=== PATIENT | female | born 1940 | race Caucasian/White ===

== ENCOUNTER 2017-01-11 14:17 | Inpatient (IN) | payer MEDICARE ==
[~2017-01-11] VITALS: Ht 165.1 cm; Wt 69.6 kg
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
--- NOTE | 2017-01-11 14:33 | EKG ---
[address] [address] Test Date: 2017-01-11 Test Time: 14:24:34 Pat Name: MERRY HERNANDEZ Department: Room: Gender: F Atmospheric Technician: JESSICA : 1940 Requested By: OSBALDO MARTINS Order Number: [id number] Reading MD: Abner Carrasco MD Measurements Intervals [place] Rate: 59 P: 46 IL: 210 QRS: 5 QRSD: 68 T: 57 QT: 402 QTc: 402 Interpretive Statements SINUS RHYTHM Electronically Signed On 01-16-2017 10:33:42 [employer] by Abner Carrasco MD
[2017-01-11 14:54] LABS: BASO # 0.1 x10^3/uL (0.0-0.2); BASO % 1 % (0-3); EOS # 0.1 x10^3/uL (0.0-0.7); EOS % 1 % (0-3); HEMATOCRIT 39.7 % (36.0-47.0); HEMOGLOBIN 13.5 g/dL (12.0-15.5); LYMPH # 1.5 x10^3/uL (1.0-4.8); LYMPH % 20 % (24-48); MEAN CORPUSCULAR HEMOGLOBIN 32 pg (25-35); MEAN CORPUSCULAR HGB CONC 34 g/dL (31-37); MEAN CORPUSCULAR VOLUME 95 fL (79-100); MONO # 0.4 x10^3/uL (0.0-1.1); MONO % 5 % (0-9); NEUT # 5.6 x10^3uL (1.8-7.7); NEUT % 74 % (31-73); PLATELET COUNT 312 x10^3/uL (140-400); RED BLOOD COUNT 4.18 x10^6/uL (3.50-5.40); RED CELL DISTRIBUTION WIDTH 12.3 % (11.5-14.5); WHITE BLOOD COUNT 7.7 x10^3/uL (4.0-11.0)
--- NOTE | 2017-01-11 15:01 | RAD ---
EXAM: CT head without contrast. HISTORY: Altered mental status. TECHNIQUE: Computed tomography of the head was performed without intravenous contrast. COMPARISON: None. FINDINGS: There is no intracranial hemorrhage. Hypoattenuation within the periventricular white matter indicates moderate to severe chronic small vessel ischemic change. Prominence of the lateral ventricles and hemispheric sulci indicate moderate atrophy. The visualized paranasal sinuses appear clear. There appear to be bilateral ocular lens dislocations. The temporal bones are unremarkable. The calvarium reveals no suspicious lesions. IMPRESSION: 1. Correlate for bilateral ocular lens dislocations. 2. Moderate atrophy and chronic small vessel ischemic white matter change. No acute intracranial findings. *One or more of the following individualized dose reduction techniques were utilized for this examination: 1. Automated exposure control. 2. Adjustment of the mA and/or kV according to patient size. 3. Use of iterative reconstruction technique.
[2017-01-11 15:08] LABS: ALBUMIN/GLOBULIN RATIO 1.2 (1.0-1.7); CALCIUM 8.9 mg/dL (8.5-10.1); CREATININE 1.5 mg/dL (0.6-1.0); ETHANOL < 10 mg/dL (0-10); GFR 33.6; MAGNESIUM 2.2 mg/dL (1.8-2.4); POTASSIUM 4.1 mmol/L (3.5-5.1); SALIC 0.2 mg/dL (2.8-20.0); TOTAL BILIRUBIN 0.6 mg/dL (0.2-1.0); TOTAL PROTEIN 7.4 g/dL (6.4-8.2)
[2017-01-11 15:09] LABS: ACETAMIN < 2.0 mcg/mL (10-30)
[2017-01-11 15:18] LABS: BACTERIA,URINE FEW /HPF (0-FEW); BILIRUBIN,URINE NEG (NEG); CLARITY,URINE CLEAR; COLOR,URINE YELLOW; GLUCOSE,URINE NEG (NEG); NITRITE,URINE NEG (NEG); RBC,URINE 0 /HPF (0-2); SQUAMOUS EPITHELIAL CELL,UR OCC /LPF; UROBILINOGEN,URINE 0.2 mg/dL (0.2 mg/dL); WBC,URINE OCC /HPF (0-4)
[2017-01-11 15:22] LABS: BARBITURATES NEG (NEG); BENZODIAZEPINES NEG (NEG); CANNABINOIDS NEG (NEG); COCAINE NEG (NEG); METHADONE NEG (NEG); OPIATES NEG (NEG); PHENCYCLIDINE NEG (NEG)
[2017-01-11 15:23] LABS: AMPHETAMINE/METHAMPHETAMINE NEG (NEG)
[2017-01-11 17:38] VITALS: BP 164/86
[2017-01-11] MEDS ORDERED: ACETAMINOPHEN 325 MG TABLET PO PRN (18:00)
[2017-01-11] MEDS ORDERED: MAG HYDROX/AL HYDROX/SIMETH 30 ML ORAL.SUSP PO PRN (18:00)
[2017-01-11] MEDS ORDERED: ACET500T68 PO (18:11)
[2017-01-11] MEDS ORDERED: POLY15DR28 OU (18:11)
[2017-01-11] MEDS ORDERED: DONE10TA7 PO (18:11)
[2017-01-11] MEDS ORDERED: FEXO180T16 PO (18:11)
[2017-01-11] MEDS ORDERED: ESCITALOPRAM OX20 MG PO (18:11)
[2017-01-11] MEDS ORDERED: LISI-338 PO (18:11)
[2017-01-11] MEDS ORDERED: VIT1CAPS12 PO (18:11)
[2017-01-11] MEDS: ACETAMINOPHEN 500 MG TABLET PO SCH (19:39)
[2017-01-11] MEDS: DONEPEZIL HCL 10 MG TABLET PO SCH (19:39)
[2017-01-11] MEDS: POLYVINYL ALCOHOL 1.4% OPHTH SOLUTION 15ML BOTTLE. OU SCH (20:58)
[2017-01-11] MEDS ORDERED: LISINOPRIL 5 MG TABLET. PO SCH (21:00)
--- NOTE | 2017-01-11 21:44 | PDOC ---
Exam Javier Demential Exam: Javier Note: Please also refer to the separate dictated note~for this date of service dictated separately.~Patient seen individually. Discussed the patient with Nursing staff reviewed the chart.~Reviewed interim history and current functioning. Reviewed vital signs,~Labs/ Radiology~and current medications noted below. Continue current treatment with the changes noted in the dictated addendum note Assessment: Vital Signs: Vital Signs Date Time Temp Pulse Resp B/P (MAP) Pulse Ox O2 Delivery O2 Flow Rate FiO2 01/11/17 19:39 64 164/86 01/11/17 17:38 97.4 20 99 01/11/17 14:53 Room Air I&O Intake and Output 01/12/17 07:00 Intake Total 60 ml Balance 60 ml Intake Oral 60 ml Labs: Laboratory Tests Test 01/11/17 14:34 01/11/17 14:50 White Blood Count 7.7 x10^3/uL (4.0-11.0) Red Blood Count 4.18 x10^6/uL (3.50-5.40) Hemoglobin 13.5 g/dL (12.0-15.5) Hematocrit 39.7 % (36.0-47.0) Mean Corpuscular Volume 95 fL (79-100) Mean Corpuscular Hemoglobin 32 pg (25-35) Mean Corpuscular Hemoglobin Concent 34 g/dL (31-37) Red Cell Distribution Width 12.3 % (11.5-14.5) Platelet Count 312 x10^3/uL (140-400) Neutrophils (%) (Auto) 74 % (31-73) H Lymphocytes (%) (Auto) 20 % (24-48) L Monocytes (%) (Auto) 5 % (0-9) Eosinophils (%) (Auto) 1 % (0-3) Basophils (%) (Auto) 1 % (0-3) Neutrophils # (Auto) 5.6 x10^3uL (1.8-7.7) Lymphocytes # (Auto) 1.5 x10^3/uL (1.0-4.8) Monocytes # (Auto) 0.4 x10^3/uL (0.0-1.1) Eosinophils # (Auto) 0.1 x10^3/uL (0.0-0.7) Basophils # (Auto) 0.1 x10^3/uL (0.0-0.2) Sodium Level 140 mmol/L (136-145) Potassium Level 4.1 mmol/L (3.5-5.1) Chloride Level 104 mmol/L (98-107) Carbon Dioxide Level 28 mmol/L (21-32) Anion Gap 8 (6-14) Blood Urea Nitrogen 27 mg/dL (7-20) H Creatinine 1.5 mg/dL (0.6-1.0) H Estimated GFR (Cockcroft-Gault) 33.6 BUN/Creatinine Ratio 18 (6-20) Glucose Level 98 mg/dL (70-99) Calcium Level 8.9 mg/dL (8.5-10.1) Magnesium Level 2.2 mg/dL (1.8-2.4) Total Bilirubin 0.6 mg/dL (0.2-1.0) Aspartate Amino Transferase (AST) 13 U/L (15-37) L Alanine Aminotransferase (ALT) 21 U/L (14-59) Alkaline Phosphatase 75 U/L (46-116) Creatine Kinase 59 U/L (26-192) Troponin I Quantitative < 0.017 ng/mL (0-0.055) Total Protein 7.4 g/dL (6.4-8.2) Albumin 4.0 g/dL (3.4-5.0) Albumin/Globulin Ratio 1.2 (1.0-1.7) Salicylates Level 0.2 mg/dL (2.8-20.0) L Salicylate Last Dose Date 01/11/17 Salicylate Last Dose Time 0000 Acetaminophen Level < 2.0 mcg/mL (10-30) L Acetaminophen Last Dose Date 01/11/17 Acetaminophen Last Dose Time 0000 Ethyl Alcohol Level < 10 mg/dL (0-10) Urine Collection Type Unknown Urine Color Yellow Urine Clarity Clear Urine pH 5.5 Urine Specific [place] 1.015 Urine Protein Neg (NEG-TRACE) Urine Glucose (UA) Neg mg/dL (NEG) Urine Ketones (Stick) Neg mg/dL (NEG) Urine Blood Neg (NEG) Urine Nitrite Neg (NEG) Urine Bilirubin Neg (NEG) Urine Urobilinogen Dipstick 0.2 mg/dL (0.2 mg/dL) Urine Leukocyte Esterase Neg (NEG) Urine RBC 0 /HPF (0-2) Urine WBC Occ /HPF (0-4) Urine Squamous Epithelial Cells Occ /LPF Urine Bacteria Few /HPF (0-FEW) Urine Opiates Screen Neg (NEG) Urine Methadone Screen Neg (NEG) Urine Barbiturates Neg (NEG) Urine Phencyclidine Screen Neg (NEG) Urine Amphetamine/Methamphetamine Neg (NEG) Urine Benzodiazepines Screen Neg (NEG) Urine Cocaine Screen Neg (NEG) Urine Cannabinoids Screen Neg (NEG) Urine Ethyl Alcohol Neg (NEG) Current Medications: Meds: Current Medications Acetaminophen (Tylenol) 650 mg PRN Q6HRS PRN PO PAIN / TEMP; Start 01/11/17 at 18:00 Al Hydroxide/Mg Hydroxide (Mylanta Plus Xs) 15 ml PRN AFTMEALHC PRN PO DYSPEPSIA; Start 01/11/17 at 18:00 Magnesium Hydroxide (Milk Of Magnesia) 2,400 mg PRN QHS PRN PO CONSTIPATION; Start 01/11/17 at 18:00 Donepezil HCl (Aricept) 10 mg QHS PO Last administered on 01/11/17 19:39; Start 01/11/17 at 21:00 Citalopram Hydrobromide (CeleXA) 40 mg DAILY PO ; Start 01/12/17 at 09:00 Acetaminophen (Tylenol) 1,000 mg BID PO Last administered on 01/11/17 19:39; Start 01/11/17 at 21:00 Lisinopril (Prinivil) 5 mg QHS PO Last administered on 01/11/17 19:39; Start 01/11/17 at 21:00 Artificial Tears (Artificial Tears) 1 drop BID OU ; Start 01/11/17 at 21:00 Cetirizine HCl (ZyrTEC) 10 mg DAILY PO ; Start 01/12/17 at 09:00 Multivitamins/ Minerals (I-Robyn) 1 tab DAILY PO ; Start 01/12/17 at 09:00 Active Scripts Active Reported Preservision Areds Softgel (Vit A/Vit C/Vit E/Zinc/Copper) 1 Each Capsule 1 Each PO DAILY Fexofenadine Hcl 180 Mg Tablet 180 Mg PO DAILY Acetaminophen 500 Mg Tablet 1,000 Mg PO BID Lisinopril 5 Mg Tablet 5 Mg PO QHS Liquitears (Polyvinyl Alcohol) 15 Ml Drops 1 Drop OP BID Escitalopram Oxalate 20 Mg Tablet 20 Mg PO DAILY Donepezil Hcl 10 Mg Tablet 10 Mg PO QHS ALIYAH RAMÍREZ MD Jan 11, 2017 21:44
[2017-01-12 06:42] VITALS: BP 145/80
[2017-01-12] MEDS: ACETAMINOPHEN 500 MG TABLET PO SCH ×2 (07:58→19:58)
[2017-01-12] MEDS: MULTIVITAMIN I-VITE TABLET. PO SCH (07:58)
[2017-01-12] MEDS: CETIRIZINE HCL 10 MG TABLET PO SCH (07:58)
[2017-01-12] MEDS ORDERED: CITALOPRAM 20 MG TABLET. PO SCH (09:00)
[2017-01-12] MEDS: POLYVINYL ALCOHOL 1.4% OPHTH SOLUTION 15ML BOTTLE. OU SCH ×2 (09:33→19:59)
[2017-01-12 15:31] VITALS: BP 146/86
[2017-01-12 17:10] LABS: THYROXINE 5.6 ug/dL (4.5-12.0)
--- NOTE | 2017-01-12 18:16 | HP ---
ADMIT DATE: 01/11/2017 This is a late entry for 01/11/2017 and covers the elements not covered in my initial note 01/11/2017. HISTORY OF PRESNET ILLNESS: I met with the patient in the evening of 01/11/2017. Discussed with nursing staff several times. Prior to the patient's admission and since her admission reviewed current and past records. IDENTIFYING DATA: The patient is a 76-year-old male referred from [place], [place] by Dr. Henriquez, her primary care physician, on account of increasing crying spells, getting angry, increasingly forgetful, suicidal ideation without a plan. The patient is being increasingly depressed and had failed outpatient psychiatric interventions, was more confused, referred for inpatient psychiatric stabilization since behaviors symptoms posing a danger for hurting self. CHIEF COMPLAINT: "I have been here a long time." The patient was admitted earlier on 01/11/2017. HISTORY OF PRESENT ILLNESS: The patient has a history of progressive memory deficits, worsening symptoms of depression. She has been helpless, hopeless, worthless, having crying spells, some sleep and appetite changes. No clear homicidal ideation. She has had suicidal ideation without a plan. No clear history of bipolar disorder. PAST PSYCHIATRIC HISTORY: As above. MEDICAL HISTORY: Hypertension, hyperlipidemia, iron deficiency, anemia, vitamin D deficiency, renal insufficiency. ACCU-CHEKS: None. CODE STATUS: DNR. ALLERGIES: SULFA, NONSTEROIDAL ANTI-INFLAMMATORY MEDICATIONS. Ambulates independently. DIET: Regular. CURRENT PSYCHOTROPICS: Aricept 10 mg a day, Lexapro 20 mg a day. FAMILY HISTORY: Noncontributory. SOCIAL HISTORY: No history of alcohol, drug abuse, physical, sexual or elder abuse. She is not known to be a perpetrator. REACTION TO HOSPITALIZATION: The patient oblivious of this. ASSETS: The patient has stable living at the above facility and a supportive family. MENTAL STATUS EXAMINATION: The patient was seen individually evening of 01/11/2017. She is anxious, restless, depressed. Denies active suicidal ideation. Memory is impaired, unable to tell me the date. Speech coherent. Association somewhat loose. Abstraction fair, computation impaired, language function intact. Mood and affect depressed. LABORATORY DATA: Reviewed. IMPRESSION: Major depressive disorder, recurrent with suicidal ideation; major neurocognitive disorder, early Alzheimer, vascular with depression; anxiety disorder, unspecified; impulse control disorder, unspecified. Rest of diagnoses as above. PLAN: Admit to the geropsychiatry unit at [facility]. I will see the patient daily individually from a psychiatric standpoint. Medical followup per Dr. Bobby/Dr. Peterson. Continue the patient on her current psychotropics. Add Remeron 7.5 mg p.o. at bedtime to help with her insomnia. Augment the antidepressant. Consider changing Lexapro to an alternate antidepressant. Will make further adjustments as clinically indicated post baseline assessment. MAN Geni RAMÍREZ MD DR: ARIANA/chandana JOB#: [id number] / [id number]
[2017-01-12] MEDS: CYANOCOBALAMIN (VITAMIN B-12) 1,000 MCG/ML VIAL IM SCH (18:29)
[2017-01-12] MEDS: DONEPEZIL HCL 10 MG TABLET PO SCH (19:58)
[2017-01-12] MEDS: MIRTAZAPINE 7.5 MG TABLET. PO SCH (19:59)
[2017-01-13 01:07] LABS: HEMOGLOBIN A1C 5.1 % (4.8-5.6)
[2017-01-13 06:11] VITALS: BP 170/86
[2017-01-13] MEDS: ACETAMINOPHEN 500 MG TABLET PO SCH ×2 (09:06→21:04)
[2017-01-13] MEDS: CETIRIZINE HCL 10 MG TABLET PO SCH (09:06)
[2017-01-13] MEDS: MULTIVITAMIN I-VITE TABLET. PO SCH (09:07)
[2017-01-13] MEDS: POLYVINYL ALCOHOL 1.4% OPHTH SOLUTION 15ML BOTTLE. OU SCH ×2 (09:09→21:04)
[2017-01-13] MEDS: SERTRALINE 50 MG TABLET. PO SCH (09:09)
[2017-01-13] MEDS: amLODIPine BESYLATE 5 MG TABLET PO SCH (09:09)
[2017-01-13 16:36] VITALS: BP 130/84
[2017-01-13] MEDS ORDERED: CHOLECALCIFEROL (VITAMIN D3) 50,000 UNIT CAPSULE PO SCH (18:00)
--- NOTE | 2017-01-13 20:09 | PDOC ---
Exam Note: Javier Note: Please also refer to the separate dictated note~for this date of service dictated separately.~Patient seen individually. Discussed the patient with Nursing staff reviewed the chart.~Reviewed interim history and current functioning. Reviewed vital signs,~Labs/ Radiology~and current medications noted below. Continue current treatment with the changes noted in the dictated addendum note Assessment: Vital Signs: Vital Signs Date Time Temp Pulse Resp B/P (MAP) Pulse Ox O2 Delivery O2 Flow Rate FiO2 01/13/17 16:36 97.8 88 16 130/84 (99) 96 01/11/17 14:53 Room Air I&O Intake and Output 01/14/17 07:00 Intake Total 240 ml Balance 240 ml Intake Oral 240 ml Current Medications: Meds: Current Medications Acetaminophen (Tylenol) 650 mg PRN Q6HRS PRN PO PAIN / TEMP; Start 01/11/17 at 18:00 Al Hydroxide/Mg Hydroxide (Mylanta Plus Xs) 15 ml PRN AFTMEALHC PRN PO DYSPEPSIA; Start 01/11/17 at 18:00 Magnesium Hydroxide (Milk Of Magnesia) 2,400 mg PRN QHS PRN PO CONSTIPATION; Start 01/11/17 at 18:00 Donepezil HCl (Aricept) 10 mg QHS PO Last administered on 01/12/17 19:58; Start 01/11/17 at 21:00 Citalopram Hydrobromide (CeleXA) 40 mg DAILY PO Last administered on 01/12/17 07:58; Start 01/12/17 at 09:00; Stop 01/12/17 at 11:45; Status DC Acetaminophen (Tylenol) 1,000 mg BID PO Last administered on 01/13/17 09:06; Start 01/11/17 at 21:00 Lisinopril (Prinivil) 5 mg QHS PO Last administered on 01/11/17 19:39; Start 01/11/17 at 21:00; Stop 01/12/17 at 17:09; Status DC Artificial Tears (Artificial Tears) 1 drop BID OU Last administered on 09:09; Start 01/11/17 at 21:00 Cetirizine HCl (ZyrTEC) 10 mg DAILY PO Last administered on 01/13/17 09:06; Start 01/12/17 at 09:00 Multivitamins/ Minerals (I-Robyn) 1 tab DAILY PO Last administered on 09:07; Start 01/12/17 at 09:00 Sertraline HCl (Zoloft) 50 mg DAILY PO Last administered on 01/13/17 09:09; Start 01/13/17 at 09:00 Mirtazapine (Remeron) 7.5 mg QHS PO Last administered on 01/12/17 19:59; Start 01/12/17 at 21:00 Cyanocobalamin (Vitamin B-12) 1,000 mcg WEEKLY IM Last administered on 18:29; Start 01/12/17 at 18:00 Amlodipine Besylate (Norvasc) 5 mg DAILY PO Last administered on 01/13/17 09: 09; Start 01/13/17 at 09:00 Olanzapine (ZyPREXA ZYDIS) 1.25 mg PRN Q2HR PRN PO PSYCHOSIS Last administered on 01/13/17 16:20; Start 01/13/17 at 17:00 Vitamin D (Vitamin D3) 50,000 unit WEEKLY PO ; Start 01/13/17 at 18:00; Stop 01/13/17 at 18:15; Status DC Vitamin D (Vitamin D3) 50,000 unit WEEKLY PO ; Start 01/14/17 at 09:00 Quetiapine Fumarate (SEROquel) 25 mg QHS PO ; Start 01/13/17 at 21:00 Benztropine Mesylate (Cogentin) 0.5 mg BID PO ; Start 01/13/17 at 21:00 Active Scripts Active Reported Preservision Areds Softgel (Vit A/Vit C/Vit E/Zinc/Copper) 1 Each Capsule 1 Each PO DAILY Fexofenadine Hcl 180 Mg Tablet 180 Mg PO DAILY Acetaminophen 500 Mg Tablet 1,000 Mg PO BID Lisinopril 5 Mg Tablet 5 Mg PO QHS Liquitears (Polyvinyl Alcohol) 15 Ml Drops 1 Drop OP BID Escitalopram Oxalate 20 Mg Tablet 20 Mg PO DAILY Donepezil Hcl 10 Mg Tablet 10 Mg PO QHS I have reviewed the current psychotropics carefully including drug interactions. Risk benefit ratio favors no change other than as noted in my dictated progress note. Diagnosis: Problems: (1) Anxiety disorder (2) Dementia, vascular, with delusions (3) Dementia, vascular, with depression (4) Major depressive disorder, recurrent episode (5) Impulse control disorder ALIYAH RAMÍREZ MD Jan 13, 2017 20:09
[2017-01-13] MEDS: MIRTAZAPINE 7.5 MG TABLET. PO SCH (21:04)
[2017-01-13] MEDS: DONEPEZIL HCL 10 MG TABLET PO SCH (21:04)
[2017-01-13] MEDS: QUEtiapine 25 MG TABLET. PO SCH (21:08)
[2017-01-13] MEDS: MAGNESIUM HYDROXIDE 2,400 MG/30 ML ORAL.SUSP. PO PRN (21:08)
[2017-01-13] MEDS: BENZTROPINE MESYLATE 0.5 MG TABLET PO SCH (21:08)
--- NOTE | 2017-01-14 04:37 | PN ---
DATE: 01/12/2017 This is a late entry, covers elements not covered in my initial note of 01/12/2017. Met with the patient in the evening of 01/12/2017. Discussed with the entire treatment team in the morning of 01/12/2017. The patient remains confused, otherwise calm. Seems to have some expressive aphasia and tremors. We will consult Dr. Saavedra for a Neurology consult. B12 is low and we will supplement this. Reviewed the patient's history, diagnosis, discharge plans, current psychotropic medications at length with her. REVIEW OF SYSTEMS: No CV, , pulmonary, eye, ENT system symptoms on review. MENTAL STATUS EXAM: Oriented to herself. Insight, judgment, recent and remote memory, attention, concentration, fund of knowledge poor, consistent with her diagnosis. The contusion may seem worse because of aphasia and we will have to assess this as the hospital admission progresses. LABORATORY DATA: Reviewed. IMPRESSION: Unchanged from initial note. Major depressive disorder, recurrent, severe major neurocognitive disorder, possibly vascular with depression; anxiety disorder, unspecified; impulse control disorder, unspecified. PLAN: Change Lexapro initially to the Celexa on automatic substitution, but given her age Celexa 40 mg a day is best to avoid. We will start Zoloft 50 mg a day. She slept just 2-3/4 hours previous evening. We will start Remeron 7.5 mg p.o. at bedtime. Continue Aricept 10 mg a day. Review of drug interactions. Risk/benefit ratio favors no further change. Gait is unsteady. MAN Geni RAMÍREZ MD DR: ARIANA/chandana JOB#: [id number] / [id number]
[2017-01-14 06:04] VITALS: BP 144/88
[2017-01-14] MEDS: MULTIVITAMIN I-VITE TABLET. PO SCH (08:56)
[2017-01-14] MEDS: amLODIPine BESYLATE 5 MG TABLET PO SCH (08:57)
[2017-01-14] MEDS: BENZTROPINE MESYLATE 0.5 MG TABLET PO SCH ×2 (08:57→20:42)
[2017-01-14] MEDS: SERTRALINE 50 MG TABLET. PO SCH (08:58)
[2017-01-14] MEDS: ACETAMINOPHEN 500 MG TABLET PO SCH ×2 (08:58→20:42)
[2017-01-14] MEDS: CETIRIZINE HCL 10 MG TABLET PO SCH (08:58)
[2017-01-14] MEDS: CHOLECALCIFEROL (VITAMIN D3) 50,000 UNIT CAPSULE PO SCH (08:59)
[2017-01-14] MEDS: POLYVINYL ALCOHOL 1.4% OPHTH SOLUTION 15ML BOTTLE. OU SCH ×2 (09:00→20:43)
[2017-01-14 16:06] VITALS: BP 131/83
--- NOTE | 2017-01-14 19:55 | PDOC ---
Exam Note: Javier Note: Please also refer to the separate dictated note~for this date of service dictated separately.~Patient seen individually. Discussed the patient with Nursing staff reviewed the chart.~Reviewed interim history and current functioning. Reviewed vital signs,~Labs/ Radiology~and current medications noted below. Continue current treatment with the changes noted in the dictated addendum note Assessment: Vital Signs: Vital Signs Date Time Temp Pulse Resp B/P (MAP) Pulse Ox O2 Delivery O2 Flow Rate FiO2 01/14/17 16:06 96.7 100 20 131/83 (99) 95 Room Air I&O Intake and Output 01/15/17 07:00 Intake Total 600 ml Balance 600 ml Intake Oral 600 ml Current Medications: Meds: Current Medications Acetaminophen (Tylenol) 650 mg PRN Q6HRS PRN PO PAIN / TEMP; Start 01/11/17 at 18:00 Al Hydroxide/Mg Hydroxide (Mylanta Plus Xs) 15 ml PRN AFTMEALHC PRN PO DYSPEPSIA; Start 01/11/17 at 18:00 Magnesium Hydroxide (Milk Of Magnesia) 2,400 mg PRN QHS PRN PO CONSTIPATION Last administered on 01/13/17 21:08; Start 01/11/17 at 18:00 Donepezil HCl (Aricept) 10 mg QHS PO Last administered on 01/13/17 21:04; Start 01/11/17 at 21:00 Citalopram Hydrobromide (CeleXA) 40 mg DAILY PO Last administered on 01/12/17 07:58; Start 01/12/17 at 09:00; Stop 01/12/17 at 11:45; Status DC Acetaminophen (Tylenol) 1,000 mg BID PO Last administered on 01/14/17 08:58; Start 01/11/17 at 21:00 Lisinopril (Prinivil) 5 mg QHS PO Last administered on 01/11/17 19:39; Start 01/11/17 at 21:00; Stop 01/12/17 at 17:09; Status DC Artificial Tears (Artificial Tears) 1 drop BID OU Last administered on 21:04; Start 01/11/17 at 21:00 Cetirizine HCl (ZyrTEC) 10 mg DAILY PO Last administered on 01/14/17 08:58; Start 01/12/17 at 09:00 Multivitamins/ Minerals (I-Robyn) 1 tab DAILY PO Last administered on 08:56; Start 01/12/17 at 09:00 Sertraline HCl (Zoloft) 50 mg DAILY PO Last administered on 01/14/17 08:58; Start 01/13/17 at 09:00 Mirtazapine (Remeron) 7.5 mg QHS PO Last administered on 01/13/17 21:04; Start 01/12/17 at 21:00 Cyanocobalamin (Vitamin B-12) 1,000 mcg WEEKLY IM Last administered on 18:29; Start 01/12/17 at 18:00 Amlodipine Besylate (Norvasc) 5 mg DAILY PO Last administered on 01/14/17 08: 57; Start 01/13/17 at 09:00 Olanzapine (ZyPREXA ZYDIS) 1.25 mg PRN Q2HR PRN PO PSYCHOSIS Last administered on 01/13/17 16:20; Start 01/13/17 at 17:00 Vitamin D (Vitamin D3) 50,000 unit WEEKLY PO ; Start 01/13/17 at 18:00; Stop 01/13/17 at 18:15; Status DC Vitamin D (Vitamin D3) 50,000 unit WEEKLY PO Last administered on 01/14/17 08 :59; Start 01/14/17 at 09:00 Quetiapine Fumarate (SEROquel) 25 mg QHS PO Last administered on 01/13/17 21: 08; Start 01/13/17 at 21:00 Benztropine Mesylate (Cogentin) 0.5 mg BID PO Last administered on 01/14/17 08:57; Start 01/13/17 at 21:00 Active Scripts Active Reported Preservision Areds Softgel (Vit A/Vit C/Vit E/Zinc/Copper) 1 Each Capsule 1 Each PO DAILY Fexofenadine Hcl 180 Mg Tablet 180 Mg PO DAILY Acetaminophen 500 Mg Tablet 1,000 Mg PO BID Lisinopril 5 Mg Tablet 5 Mg PO QHS Liquitears (Polyvinyl Alcohol) 15 Ml Drops 1 Drop OP BID Escitalopram Oxalate 20 Mg Tablet 20 Mg PO DAILY Donepezil Hcl 10 Mg Tablet 10 Mg PO QHS I have reviewed the current psychotropics carefully including drug interactions. Risk benefit ratio favors no change other than as noted in my dictated progress note. Diagnosis: Problems: (1) Anxiety disorder (2) Dementia, vascular, with delusions (3) Dementia, vascular, with depression (4) Major depressive disorder, recurrent episode (5) Impulse control disorder ALIYAH RAMÍREZ MD Jan 14, 2017 19:54
[2017-01-14] MEDS: MIRTAZAPINE 7.5 MG TABLET. PO SCH (20:41)
[2017-01-14] MEDS: QUEtiapine 25 MG TABLET. PO SCH (20:42)
[2017-01-14] MEDS: DONEPEZIL HCL 10 MG TABLET PO SCH (20:42)
[2017-01-15 06:30] VITALS: BP 137/84
[2017-01-15] MEDS: SERTRALINE 50 MG TABLET. PO SCH (08:04)
[2017-01-15] MEDS: amLODIPine BESYLATE 5 MG TABLET PO SCH (08:04)
[2017-01-15] MEDS: BENZTROPINE MESYLATE 0.5 MG TABLET PO SCH ×2 (08:04→20:10)
[2017-01-15] MEDS: ACETAMINOPHEN 500 MG TABLET PO SCH ×2 (08:05→20:09)
[2017-01-15] MEDS: CETIRIZINE HCL 10 MG TABLET PO SCH (08:05)
[2017-01-15] MEDS: MULTIVITAMIN I-VITE TABLET. PO SCH (08:05)
--- NOTE | 2017-01-15 08:43 | CONS ---
DATE OF CONSULTATION: REASON FOR CONSULTATION: Medical management. HISTORY OF PRESENT ILLNESS: The patient is a 76-year-old female patient, a resident at [facility] in [place], [place] and who was [facility] on the account of worsening mood over the last year or so. She apparently has been crying, getting angry, threatening to kill herself; however, no plan was verbalized. She was forgetting things, has fallen multiple times. All these symptoms started about a month ago. Her Lexapro was increased by her primary care physician in July and he recommended Neurology consult, but no follow through was done and she was admitted to [facility] for inpatient psychiatric stabilization. PAST MEDICAL HISTORY: Significant for hypertension, hyperlipidemia, chronic renal insufficiency, iron deficiency anemia, vitamin D deficiency. She has also had dementia and aphasia. ALLERGIES: She is allergic to NONSTEROIDAL ANTI-INFLAMMATORY MEDICATION WELL SULFA DRUGS. MEDICATIONS: She is currently on following medications: She is on acetaminophen 1000 mg twice a day, Aricept ____ mg once a day, escitalopram oxalate 20 mg once a day, fexofenadine 180 mg once a day, lisinopril 5 mg once a day, Liquid Tears 1 drop to both eyes twice a day, multivitamin 1 tablet once a day. FAMILY HISTORY: Unobtainable. SOCIAL HISTORY: She apparently a resident at [facility] in [place], [place]. REVIEW OF SYSTEMS: Unobtainable. The patient has expressive aphasia and has difficulty finding words. PHYSICAL EXAMINATION: GENERAL: When I examined her, she was sitting comfortably in her chair, in no apparent respiratory distress. She was pale. No jaundice, cyanosis. Some thyromegaly. No jugular venous distension. No lower limb edema. VITAL SIGNS: Her heart rate was 92, blood pressure 146/86, temperature was 97.3, respiratory rate was 18 and oxygen saturation was 98% on room air. HEENT: Normocephalic, atraumatic. NECK: Supple. HEART: Showed normal first and second heart sounds with no gallop, rub or murmur. CHEST: Clear to auscultation. No crepitation or rhonchi. ABDOMEN: Distended, soft, nontender. No guarding or rigidity. No organomegaly. All hernial orifices intact. Bowel sounds normal. NEUROLOGIC: She is awake, alert, but difficult to express herself. All her cranial nerves are intact. She moves extremities without difficulty. She ambulates without assistance or assistive devices; however, she has what seems to be almost like myoclonic jerks in both upper extremities. LABORATORY DATA: Her lab work as of yesterday showed a serum sodium 140, potassium 4.1, chloride 104, bicarbonate 28, anion gap of 8, BUN 27, creatinine 1.5, estimated GFR was 53 mL per minute. Her glucose was ____, calcium was 8.9, magnesium 2.2. Total bilirubin, AST, ALT, alkaline phosphatase were normal. Her total protein is 7.4, albumin 4. Her serum iron was 42. TIBC was 305, percent saturation was 14. Her triglycerides were high at 320. Total cholesterol was 273, LDL cholesterol 146, VLDL was 64, and HDL cholesterol was 61. Her cholesterol to HDL cholesterol ratio was 4. Her TSH was normal at 2.959 and her vitamin B12 is low at 184. Picogram per mL within normal range between 247-911. White cell count was 7700, hemoglobin 13.5, hematocrit 39.7, MCV 95 and platelet count 312,000 with normal manual differential. Her urinalysis was essentially unremarkable. The urine was yellow, clear with a pH of 5.5 with specific gravity of 1.015. The urine is negative for protein, glucose, ketones, blood, nitrite, bilirubin, and leukocyte esterase. There are no RBCs, no WBCs, and very few bacteria. Urine toxicology screen was essentially negative. She apparently had a CT scan of the head, which showed that there is no intracranial hemorrhage, hypoattenuation within the periventricular white matter indicates moderate to severe chronic small vessel ischemic changes, prominence of lateral ventricles and hemispheric sulci indicates moderate atrophy. The visualized paranasal sinuses appear clear. There appeared to be bilateral ocular lens dislocation. The temporal bones are unremarkable. The calvarium reveals no suspicious lesions. IMPRESSION: In summary, this is a 76-year-old female patient, a resident at [place], [place], who was basically admitted on account of crying, getting angry, threatening to kill herself, although no plan was verbalized. She has been forgetting things, has had multiple falls in the shower and all this in a background of dementia. Her vital signs are stable. Her labs revealed that she has impaired kidney function as well as severe vitamin B12 deficiency. She apparently is known to have hypertension, hyperlipidemia. My recommendation is to replenish her vitamin B12 and perhaps discontinue lisinopril and replace it with amlodipine given that her kidney function is impaired. She does have also evidence of iron deficiency anemia with elevated TIBC. Her H and H 13.5 and 39.7, MCV slightly elevated at 95 and probably have a mixed picture of iron deficiency and vitamin B12 deficiency. I will start her also on ferrous sulfate and ascorbic acid and follow all other lab work that are still pending at the time of this dictation. Thank you, Dr. Ribeiro, for allowing me to participate in the care of this patient. ELIANE ENGLISH MD DR: BAILEY/chandana JOB#: [id number] / [id number]
--- NOTE | 2017-01-15 08:44 | PN ---
DATE: 01/13/2017 PSYCHIATRIC PROGRESS NOTE This late entry 01/13/2017 covers elements not covered in my initial note of 01/13/2017. I met with the patient in the evening of 01/13/2017. The patient slept 7-3/4 hours the previous evening, little more expressive during the day, but by 4:00 p.m. she was yelling and pushing others including pushing other patients in the wheelchairs into the day room. She was aggressive with the nursing staff, quite delusional, believes people are wanting her money. Staff had called me as an emergency, we added Zyprexa p.r.n., and she was placed at the [facility] to reduce stimulation. As I met with her the evening of 01/13/2017, she had removed her pants and top, but was in a bra, quite disorganized, verbally abusive even to me as I met with her, paranoid, suspicious. REVIEW OF SYSTEMS: No CV, , pulmonary, eye, ENT system symptoms on review. MENTAL STATUS EXAM: Oriented to herself. Insight, judgment, recent and remote memory, attention, concentration, fund of knowledge poor, consistent with her diagnosis mentioned in my initial note. PLAN: Start Seroquel 25 mg p.o. at bedtime in addition to what is noted above. Continue rest as noted in my initial note. ALIYAH RAMÍREZ MD DR: ARIANA/chandana JOB#: [id number] / [id number]
[2017-01-15] MEDS: POLYVINYL ALCOHOL 1.4% OPHTH SOLUTION 15ML BOTTLE. OU SCH ×2 (09:00→20:10)
[2017-01-15 16:03] VITALS: BP 113/69
--- NOTE | 2017-01-15 19:56 | PDOC ---
Exam Note: Javier Note: Please also refer to the separate dictated note~for this date of service dictated separately.~Patient seen individually. Discussed the patient with Nursing staff reviewed the chart.~Reviewed interim history and current functioning. Reviewed vital signs,~Labs/ Radiology~and current medications noted below. Continue current treatment with the changes noted in the dictated addendum note Assessment: Vital Signs: Vital Signs Date Time Temp Pulse Resp B/P (MAP) Pulse Ox O2 Delivery O2 Flow Rate FiO2 01/15/17 16:03 97.1 78 20 113/69 (84) 94 Room Air I&O Intake and Output 01/16/17 07:00 Intake Total 720 ml Balance 720 ml Intake Oral 720 ml Current Medications: Meds: Current Medications Acetaminophen (Tylenol) 650 mg PRN Q6HRS PRN PO PAIN / TEMP; Start 01/11/17 at 18:00 Al Hydroxide/Mg Hydroxide (Mylanta Plus Xs) 15 ml PRN AFTMEALHC PRN PO DYSPEPSIA; Start 01/11/17 at 18:00 Magnesium Hydroxide (Milk Of Magnesia) 2,400 mg PRN QHS PRN PO CONSTIPATION Last administered on 01/13/17 21:08; Start 01/11/17 at 18:00 Donepezil HCl (Aricept) 10 mg QHS PO Last administered on 01/14/17 20:42; Start 01/11/17 at 21:00 Citalopram Hydrobromide (CeleXA) 40 mg DAILY PO Last administered on 01/12/17 07:58; Start 01/12/17 at 09:00; Stop 01/12/17 at 11:45; Status DC Acetaminophen (Tylenol) 1,000 mg BID PO Last administered on 01/15/17 08:05; Start 01/11/17 at 21:00 Lisinopril (Prinivil) 5 mg QHS PO Last administered on 01/11/17 19:39; Start 01/11/17 at 21:00; Stop 01/12/17 at 17:09; Status DC Artificial Tears (Artificial Tears) 1 drop BID OU Last administered on 20:43; Start 01/11/17 at 21:00 Cetirizine HCl (ZyrTEC) 10 mg DAILY PO Last administered on 01/15/17 08:05; Start 01/12/17 at 09:00 Multivitamins/ Minerals (I-Robyn) 1 tab DAILY PO Last administered on 08:05; Start 01/12/17 at 09:00 Sertraline HCl (Zoloft) 50 mg DAILY PO Last administered on 01/15/17 08:04; Start 01/13/17 at 09:00 Mirtazapine (Remeron) 7.5 mg QHS PO Last administered on 01/14/17 20:41; Start 01/12/17 at 21:00 Cyanocobalamin (Vitamin B-12) 1,000 mcg WEEKLY IM Last administered on 18:29; Start 01/12/17 at 18:00 Amlodipine Besylate (Norvasc) 5 mg DAILY PO Last administered on 01/15/17 08: 04; Start 01/13/17 at 09:00 Olanzapine (ZyPREXA ZYDIS) 1.25 mg PRN Q2HR PRN PO PSYCHOSIS Last administered on 01/13/17 16:20; Start 01/13/17 at 17:00 Vitamin D (Vitamin D3) 50,000 unit WEEKLY PO ; Start 01/13/17 at 18:00; Stop 01/13/17 at 18:15; Status DC Vitamin D (Vitamin D3) 50,000 unit WEEKLY PO Last administered on 01/14/17 08 :59; Start 01/14/17 at 09:00 Quetiapine Fumarate (SEROquel) 25 mg QHS PO Last administered on 01/14/17 20: 42; Start 01/13/17 at 21:00 Benztropine Mesylate (Cogentin) 0.5 mg BID PO Last administered on 01/15/17 08:04; Start 01/13/17 at 21:00 Active Scripts Active Reported Preservision Areds Softgel (Vit A/Vit C/Vit E/Zinc/Copper) 1 Each Capsule 1 Each PO DAILY Fexofenadine Hcl 180 Mg Tablet 180 Mg PO DAILY Acetaminophen 500 Mg Tablet 1,000 Mg PO BID Lisinopril 5 Mg Tablet 5 Mg PO QHS Liquitears (Polyvinyl Alcohol) 15 Ml Drops 1 Drop OP BID Escitalopram Oxalate 20 Mg Tablet 20 Mg PO DAILY Donepezil Hcl 10 Mg Tablet 10 Mg PO QHS I have reviewed the current psychotropics carefully including drug interactions. Risk benefit ratio favors no change other than as noted in my dictated progress note. Diagnosis: Problems: (1) Anxiety disorder (2) Dementia, vascular, with delusions (3) Dementia, vascular, with depression (4) Major depressive disorder, recurrent episode (5) Impulse control disorder ALIYAH RAMÍREZ MD Jan 15, 2017 19:56
[2017-01-15] MEDS: QUEtiapine 25 MG TABLET. PO SCH (20:09)
[2017-01-15] MEDS: MIRTAZAPINE 7.5 MG TABLET. PO SCH (20:10)
[2017-01-15] MEDS: DONEPEZIL HCL 10 MG TABLET PO SCH (20:10)
[2017-01-16 05:59] VITALS: BP 126/86
--- NOTE | 2017-01-16 10:01 | PN ---
DATE: 01/14/2017 PSYCHIATRIC PROGRESS NOTE This late entry 01/14/2017, covers elements not covered in my initial note 01/14/2017. I met with the patient evening of 01/14/2017. She was seen by Dr. Saavedra for tremor started on Cogentin, no crying spells noted, much more pleasant, confused, not undressing herself and aggressive like she was the day before. REVIEW OF SYSTEMS: No CV, , pulmonary, eye, ENT system symptoms on review. Reliability poor. MENTAL STATUS EXAM: Oriented to herself, pleasant, smiling. Insight, judgment, recent and remote memory, attention, concentration, fund of knowledge poor, consistent with her diagnosis mentioned in my initial note. PLAN: Cogentin started for her tremors 0.5 mg b.i.d. maintain. Rest unchanged from my initial note. MAN Geni RAMÍREZ MD DR: ARIANA/chandana JOB#: [id number] / [id number]
[2017-01-16] MEDS: CETIRIZINE HCL 10 MG TABLET PO SCH (10:12)
[2017-01-16] MEDS: BENZTROPINE MESYLATE 0.5 MG TABLET PO SCH ×2 (10:12→20:57)
[2017-01-16] MEDS: MULTIVITAMIN I-VITE TABLET. PO SCH (10:12)
[2017-01-16] MEDS: ACETAMINOPHEN 500 MG TABLET PO SCH ×2 (10:12→20:58)
[2017-01-16] MEDS: amLODIPine BESYLATE 5 MG TABLET PO SCH (10:13)
[2017-01-16] MEDS: SERTRALINE 50 MG TABLET. PO SCH (10:13)
[2017-01-16] MEDS: POLYVINYL ALCOHOL 1.4% OPHTH SOLUTION 15ML BOTTLE. OU SCH ×2 (10:14→21:00)
[2017-01-16 16:17] VITALS: BP 137/82
--- NOTE | 2017-01-16 20:12 | PDOC ---
Exam Note: Javier Note: Please also refer to the separate dictated note~for this date of service dictated separately.~Patient seen individually. Discussed the patient with Nursing staff reviewed the chart.~Reviewed interim history and current functioning. Reviewed vital signs,~Labs/ Radiology~and current medications noted below. Continue current treatment with the changes noted in the dictated addendum note Assessment: Vital Signs: Vital Signs Date Time Temp Pulse Resp B/P (MAP) Pulse Ox O2 Delivery O2 Flow Rate FiO2 01/16/17 16:17 97.4 72 16 137/82 (100) 99 01/15/17 16:03 Room Air I&O Intake and Output 01/16/17 07:00 Intake Total 960 ml Balance 960 ml Intake Oral 960 ml Current Medications: Meds: Current Medications Acetaminophen (Tylenol) 650 mg PRN Q6HRS PRN PO PAIN / TEMP; Start 01/11/17 at 18:00 Al Hydroxide/Mg Hydroxide (Mylanta Plus Xs) 15 ml PRN AFTMEALHC PRN PO DYSPEPSIA; Start 01/11/17 at 18:00 Magnesium Hydroxide (Milk Of Magnesia) 2,400 mg PRN QHS PRN PO CONSTIPATION Last administered on 01/13/17 21:08; Start 01/11/17 at 18:00 Donepezil HCl (Aricept) 10 mg QHS PO Last administered on 01/15/17 20:10; Start 01/11/17 at 21:00 Citalopram Hydrobromide (CeleXA) 40 mg DAILY PO Last administered on 01/12/17 07:58; Start 01/12/17 at 09:00; Stop 01/12/17 at 11:45; Status DC Acetaminophen (Tylenol) 1,000 mg BID PO Last administered on 01/16/17 10:12; Start 01/11/17 at 21:00 Lisinopril (Prinivil) 5 mg QHS PO Last administered on 01/11/17 19:39; Start 01/11/17 at 21:00; Stop 01/12/17 at 17:09; Status DC Artificial Tears (Artificial Tears) 1 drop BID OU Last administered on 10:14; Start 01/11/17 at 21:00 Cetirizine HCl (ZyrTEC) 10 mg DAILY PO Last administered on 01/16/17 10:12; Start 01/12/17 at 09:00 Multivitamins/ Minerals (I-Robyn) 1 tab DAILY PO Last administered on 10:12; Start 01/12/17 at 09:00 Sertraline HCl (Zoloft) 50 mg DAILY PO Last administered on 01/16/17 10:13; Start 01/13/17 at 09:00 Mirtazapine (Remeron) 7.5 mg QHS PO Last administered on 01/15/17 20:10; Start 01/12/17 at 21:00 Cyanocobalamin (Vitamin B-12) 1,000 mcg WEEKLY IM Last administered on 18:29; Start 01/12/17 at 18:00 Amlodipine Besylate (Norvasc) 5 mg DAILY PO Last administered on 01/16/17 10: 13; Start 01/13/17 at 09:00 Olanzapine (ZyPREXA ZYDIS) 1.25 mg PRN Q2HR PRN PO PSYCHOSIS Last administered on 01/13/17 16:20; Start 01/13/17 at 17:00 Vitamin D (Vitamin D3) 50,000 unit WEEKLY PO ; Start 01/13/17 at 18:00; Stop 01/13/17 at 18:15; Status DC Vitamin D (Vitamin D3) 50,000 unit WEEKLY PO Last administered on 01/14/17 08 :59; Start 01/14/17 at 09:00 Quetiapine Fumarate (SEROquel) 25 mg QHS PO Last administered on 01/15/17 20: 09; Start 01/13/17 at 21:00 Benztropine Mesylate (Cogentin) 0.5 mg BID PO Last administered on 01/16/17 10:12; Start 01/13/17 at 21:00 Active Scripts Active Reported Preservision Areds Softgel (Vit A/Vit C/Vit E/Zinc/Copper) 1 Each Capsule 1 Each PO DAILY Fexofenadine Hcl 180 Mg Tablet 180 Mg PO DAILY Acetaminophen 500 Mg Tablet 1,000 Mg PO BID Lisinopril 5 Mg Tablet 5 Mg PO QHS Liquitears (Polyvinyl Alcohol) 15 Ml Drops 1 Drop OP BID Escitalopram Oxalate 20 Mg Tablet 20 Mg PO DAILY Donepezil Hcl 10 Mg Tablet 10 Mg PO QHS I have reviewed the current psychotropics carefully including drug interactions. Risk benefit ratio favors no change other than as noted in my dictated progress note. Diagnosis: Problems: (1) Anxiety disorder (2) Dementia, vascular, with delusions (3) Dementia, vascular, with depression (4) Major depressive disorder, recurrent episode (5) Impulse control disorder ALIYAH RAMÍREZ MD Jan 16, 2017 20:12
[2017-01-16] MEDS: MIRTAZAPINE 7.5 MG TABLET. PO SCH (20:57)
[2017-01-16] MEDS: DONEPEZIL HCL 10 MG TABLET PO SCH (20:57)
[2017-01-16] MEDS: QUEtiapine 25 MG TABLET. PO SCH (20:57)
[2017-01-17 06:01] VITALS: BP 150/92
[2017-01-17] MEDS: BENZTROPINE MESYLATE 0.5 MG TABLET PO SCH ×2 (08:53→21:03)
[2017-01-17] MEDS: SERTRALINE 50 MG TABLET. PO SCH (08:53)
[2017-01-17] MEDS: MULTIVITAMIN I-VITE TABLET. PO SCH (08:53)
[2017-01-17] MEDS: ACETAMINOPHEN 500 MG TABLET PO SCH ×2 (08:53→21:03)
[2017-01-17] MEDS: CETIRIZINE HCL 10 MG TABLET PO SCH (08:53)
[2017-01-17] MEDS: amLODIPine BESYLATE 5 MG TABLET PO SCH (08:54)
[2017-01-17] MEDS: POLYVINYL ALCOHOL 1.4% OPHTH SOLUTION 15ML BOTTLE. OU SCH ×2 (08:55→21:07)
--- NOTE | 2017-01-17 10:53 | PN ---
DATE: 01/15/2017 This late entry 01/15/2017 covers elements not covered in my initial note 01/15/2017. SUBJECTIVE: I met with the patient in the evening of 01/15/2017. The patient seems to have some expressive aphasia, crying spells, mood lability and anger is better per nursing report. REVIEW OF SYSTEMS: No CV, , pulmonary, eye, ENT system symptoms on review. MENTAL STATUS EXAM: Oriented to herself. Insight, judgment, recent and remote memory, attention, concentration, fund of knowledge poor, consistent with her diagnoses. IMPRESSION: Major neurocognitive disorder, Alzheimer, vascular with depression, delusion and behavioral disturbance, major depressive disorder, recurrent; anxiety disorder, unspecified; impulse control disorder, unspecified. PLAN: No changes in psychotropics from my initial note. MAN Geni RAMÍREZ MD DR: ARIANA/chandana JOB#: [id number] / [id number]
[2017-01-17 16:45] VITALS: BP 128/75
--- NOTE | 2017-01-17 19:56 | PDOC ---
Exam Note: Javier Note: Please also refer to the separate dictated note~for this date of service dictated separately.~Patient seen individually. Discussed the patient with Nursing staff reviewed the chart.~Reviewed interim history and current functioning. Reviewed vital signs,~Labs/ Radiology~and current medications noted below. Continue current treatment with the changes noted in the dictated addendum note Assessment: Vital Signs: Vital Signs Date Time Temp Pulse Resp B/P (MAP) Pulse Ox O2 Delivery O2 Flow Rate FiO2 01/17/17 16:45 98.5 81 16 128/75 (92) 100 01/15/17 16:03 Room Air I&O Intake and Output 01/17/17 07:00 Intake Total 960 ml Balance 960 ml Intake Oral 960 ml # Bowel Movements 1 Current Medications: Meds: Current Medications Acetaminophen (Tylenol) 650 mg PRN Q6HRS PRN PO PAIN / TEMP; Start 01/11/17 at 18:00 Al Hydroxide/Mg Hydroxide (Mylanta Plus Xs) 15 ml PRN AFTMEALHC PRN PO DYSPEPSIA; Start 01/11/17 at 18:00 Magnesium Hydroxide (Milk Of Magnesia) 2,400 mg PRN QHS PRN PO CONSTIPATION Last administered on 01/13/17 21:08; Start 01/11/17 at 18:00 Donepezil HCl (Aricept) 10 mg QHS PO Last administered on 01/16/17 20:57; Start 01/11/17 at 21:00 Citalopram Hydrobromide (CeleXA) 40 mg DAILY PO Last administered on 01/12/17 07:58; Start 01/12/17 at 09:00; Stop 01/12/17 at 11:45; Status DC Acetaminophen (Tylenol) 1,000 mg BID PO Last administered on 01/17/17 08:53; Start 01/11/17 at 21:00 Lisinopril (Prinivil) 5 mg QHS PO Last administered on 01/11/17 19:39; Start 01/11/17 at 21:00; Stop 01/12/17 at 17:09; Status DC Artificial Tears (Artificial Tears) 1 drop BID OU Last administered on 08:55; Start 01/11/17 at 21:00 Cetirizine HCl (ZyrTEC) 10 mg DAILY PO Last administered on 01/17/17 08:53; Start 01/12/17 at 09:00 Multivitamins/ Minerals (I-Robyn) 1 tab DAILY PO Last administered on 08:53; Start 01/12/17 at 09:00 Sertraline HCl (Zoloft) 50 mg DAILY PO Last administered on 01/17/17 08:53; Start 01/13/17 at 09:00 Mirtazapine (Remeron) 7.5 mg QHS PO Last administered on 01/16/17 20:57; Start 01/12/17 at 21:00 Cyanocobalamin (Vitamin B-12) 1,000 mcg WEEKLY IM Last administered on 18:29; Start 01/12/17 at 18:00 Amlodipine Besylate (Norvasc) 5 mg DAILY PO Last administered on 01/17/17 08: 54; Start 01/13/17 at 09:00 Olanzapine (ZyPREXA ZYDIS) 1.25 mg PRN Q2HR PRN PO PSYCHOSIS Last administered on 01/13/17 16:20; Start 01/13/17 at 17:00 Vitamin D (Vitamin D3) 50,000 unit WEEKLY PO ; Start 01/13/17 at 18:00; Stop 01/13/17 at 18:15; Status DC Vitamin D (Vitamin D3) 50,000 unit WEEKLY PO Last administered on 01/14/17 08 :59; Start 01/14/17 at 09:00 Quetiapine Fumarate (SEROquel) 25 mg QHS PO Last administered on 01/16/17 20: 57; Start 01/13/17 at 21:00; Stop 01/17/17 at 19:20; Status DC Benztropine Mesylate (Cogentin) 0.5 mg BID PO Last administered on 01/17/17 08:53; Start 01/13/17 at 21:00 Quetiapine Fumarate (SEROquel) 50 mg QHS PO ; Start 01/17/17 at 21:00 Active Scripts Active Reported Preservision Areds Softgel (Vit A/Vit C/Vit E/Zinc/Copper) 1 Each Capsule 1 Each PO DAILY Fexofenadine Hcl 180 Mg Tablet 180 Mg PO DAILY Acetaminophen 500 Mg Tablet 1,000 Mg PO BID Lisinopril 5 Mg Tablet 5 Mg PO QHS Liquitears (Polyvinyl Alcohol) 15 Ml Drops 1 Drop OP BID Escitalopram Oxalate 20 Mg Tablet 20 Mg PO DAILY Donepezil Hcl 10 Mg Tablet 10 Mg PO QHS I have reviewed the current psychotropics carefully including drug interactions. Risk benefit ratio favors no change other than as noted in my dictated progress note. Diagnosis: Problems: (1) Anxiety disorder (2) Dementia, vascular, with delusions (3) Dementia, vascular, with depression (4) Major depressive disorder, recurrent episode (5) Impulse control disorder ALIYAH RAMÍREZ MD Jan 17, 2017 19:56
[2017-01-17] MEDS: MIRTAZAPINE 7.5 MG TABLET. PO SCH (21:03)
[2017-01-17] MEDS: DONEPEZIL HCL 10 MG TABLET PO SCH (21:03)
[2017-01-17] MEDS: QUEtiapine 50 MG TABLET. PO SCH (21:05)
[2017-01-18 05:44] VITALS: BP 146/78
[2017-01-18 07:10] LABS: BASO # 0.1 x10^3/uL (0.0-0.2); BASO % 1 % (0-3); EOS # 0.1 x10^3/uL (0.0-0.7); EOS % 2 % (0-3); HEMOGLOBIN 13.6 g/dL (12.0-15.5); LYMPH # 1.5 x10^3/uL (1.0-4.8); LYMPH % 25 % (24-48); MEAN CORPUSCULAR HEMOGLOBIN 32 pg (25-35); MEAN CORPUSCULAR HGB CONC 34 g/dL (31-37); MEAN CORPUSCULAR VOLUME 94 fL (79-100); MONO # 0.4 x10^3/uL (0.0-1.1); MONO % 7 % (0-9); NEUT # 3.7 x10^3uL (1.8-7.7); NEUT % 64 % (31-73); PLATELET COUNT 291 x10^3/uL (140-400); RED BLOOD COUNT 4.25 x10^6/uL (3.50-5.40); RED CELL DISTRIBUTION WIDTH 12.1 % (11.5-14.5); WHITE BLOOD COUNT 5.8 x10^3/uL (4.0-11.0)
[2017-01-18 07:24] LABS: ALBUMIN 3.8 g/dL (3.4-5.0); ALBUMIN/GLOBULIN RATIO 1.1 (1.0-1.7); CALCIUM 9.2 mg/dL (8.5-10.1); CREATININE 1.1 mg/dL (0.6-1.0); MAGNESIUM 2.1 mg/dL (1.8-2.4); POTASSIUM 4.1 mmol/L (3.5-5.1); TOTAL BILIRUBIN 0.7 mg/dL (0.2-1.0); TOTAL PROTEIN 7.4 g/dL (6.4-8.2)
[2017-01-18] MEDS: POLYVINYL ALCOHOL 1.4% OPHTH SOLUTION 15ML BOTTLE. OU SCH ×2 (09:00→19:16)
[2017-01-18] MEDS: MULTIVITAMIN I-VITE TABLET. PO SCH (09:13)
[2017-01-18] MEDS: CETIRIZINE HCL 10 MG TABLET PO SCH (09:13)
[2017-01-18] MEDS: BENZTROPINE MESYLATE 0.5 MG TABLET PO SCH ×2 (09:13→19:15)
[2017-01-18] MEDS: SERTRALINE 50 MG TABLET. PO SCH (09:13)
[2017-01-18] MEDS: amLODIPine BESYLATE 5 MG TABLET PO SCH (09:13)
[2017-01-18] MEDS: ACETAMINOPHEN 500 MG TABLET PO SCH ×2 (09:13→19:14)
--- NOTE | 2017-01-18 10:21 | PN ---
DATE: 01/16/2017 This is a late entry 01/16, covers elements not covered in the initial note 01/16. SUBJECTIVE: I met with the patient evening of 01/16. The patient continues to be somewhat confused, has expressive aphasia. She is undressing in a male patient's room evening of 01/16, as I went looking for her, oblivious of what she was doing. REVIEW OF SYSTEMS: No CV, , pulmonary, eye, ENT system symptoms on review. She has not been aggressive. MENTAL STATUS EXAM: Oriented to herself. Insight, judgment, recent and remote memory, attention, concentration, fund of knowledge poor, consistent with her diagnosis mentioned in my initial note. PLAN: Continue current psychotropics mentioned in my initial note. MAN Geni RAMÍREZ MD DR: ARIANA/chandana JOB#: [id number] / [id number]
[2017-01-18 16:03] VITALS: BP 149/92
[2017-01-18] MEDS: DONEPEZIL HCL 10 MG TABLET PO SCH (19:15)
[2017-01-18] MEDS: QUEtiapine 50 MG TABLET. PO SCH (19:15)
[2017-01-18] MEDS: MIRTAZAPINE 7.5 MG TABLET. PO SCH (19:15)
--- NOTE | 2017-01-18 20:03 | PDOC ---
Exam Note: Javier Note: Please also refer to the separate dictated note~for this date of service dictated separately.~Patient seen individually. Discussed the patient with Nursing staff reviewed the chart.~Reviewed interim history and current functioning. Reviewed vital signs,~Labs/ Radiology~and current medications noted below. Continue current treatment with the changes noted in the dictated addendum note Assessment: Vital Signs: Vital Signs Date Time Temp Pulse Resp B/P (MAP) Pulse Ox O2 Delivery O2 Flow Rate FiO2 01/18/17 16:03 97.7 78 18 149/92 (111) 94 01/15/17 16:03 Room Air I&O Intake and Output 01/18/17 07:00 Intake Total 780 ml Balance 780 ml Intake Oral 780 ml Labs: Laboratory Tests Test 01/18/17 06:35 White Blood Count 5.8 x10^3/uL (4.0-11.0) Red Blood Count 4.25 x10^6/uL (3.50-5.40) Hemoglobin 13.6 g/dL (12.0-15.5) Hematocrit 40.0 % (36.0-47.0) Mean Corpuscular Volume 94 fL (79-100) Mean Corpuscular Hemoglobin 32 pg (25-35) Mean Corpuscular Hemoglobin Concent 34 g/dL (31-37) Red Cell Distribution Width 12.1 % (11.5-14.5) Platelet Count 291 x10^3/uL (140-400) Neutrophils (%) (Auto) 64 % (31-73) Lymphocytes (%) (Auto) 25 % (24-48) Monocytes (%) (Auto) 7 % (0-9) Eosinophils (%) (Auto) 2 % (0-3) Basophils (%) (Auto) 1 % (0-3) Neutrophils # (Auto) 3.7 x10^3uL (1.8-7.7) Lymphocytes # (Auto) 1.5 x10^3/uL (1.0-4.8) Monocytes # (Auto) 0.4 x10^3/uL (0.0-1.1) Eosinophils # (Auto) 0.1 x10^3/uL (0.0-0.7) Basophils # (Auto) 0.1 x10^3/uL (0.0-0.2) Sodium Level 141 mmol/L (136-145) Potassium Level 4.1 mmol/L (3.5-5.1) Chloride Level 104 mmol/L (98-107) Carbon Dioxide Level 30 mmol/L (21-32) Anion Gap 7 (6-14) Blood Urea Nitrogen 26 mg/dL (7-20) H Creatinine 1.1 mg/dL (0.6-1.0) H Estimated GFR (Cockcroft-Gault) 48.0 BUN/Creatinine Ratio 24 (6-20) H Glucose Level 88 mg/dL (70-99) Calcium Level 9.2 mg/dL (8.5-10.1) Magnesium Level 2.1 mg/dL (1.8-2.4) Total Bilirubin 0.7 mg/dL (0.2-1.0) Aspartate Amino Transferase (AST) 12 U/L (15-37) L Alanine Aminotransferase (ALT) 17 U/L (14-59) Alkaline Phosphatase 71 U/L (46-116) Total Protein 7.4 g/dL (6.4-8.2) Albumin 3.8 g/dL (3.4-5.0) Albumin/Globulin Ratio 1.1 (1.0-1.7) Current Medications: Meds: Current Medications Acetaminophen (Tylenol) 650 mg PRN Q6HRS PRN PO PAIN / TEMP; Start 01/11/17 at 18:00 Al Hydroxide/Mg Hydroxide (Mylanta Plus Xs) 15 ml PRN AFTMEALHC PRN PO DYSPEPSIA; Start 01/11/17 at 18:00 Magnesium Hydroxide (Milk Of Magnesia) 2,400 mg PRN QHS PRN PO CONSTIPATION Last administered on 01/13/17 21:08; Start 01/11/17 at 18:00 Donepezil HCl (Aricept) 10 mg QHS PO Last administered on 01/18/17 19:15; Start 01/11/17 at 21:00 Citalopram Hydrobromide (CeleXA) 40 mg DAILY PO Last administered on 01/12/17 07:58; Start 01/12/17 at 09:00; Stop 01/12/17 at 11:45; Status DC Acetaminophen (Tylenol) 1,000 mg BID PO Last administered on 01/18/17 19:14; Start 01/11/17 at 21:00 Lisinopril (Prinivil) 5 mg QHS PO Last administered on 01/11/17 19:39; Start 01/11/17 at 21:00; Stop 01/12/17 at 17:09; Status DC Artificial Tears (Artificial Tears) 1 drop BID OU Last administered on 19:16; Start 01/11/17 at 21:00 Cetirizine HCl (ZyrTEC) 10 mg DAILY PO Last administered on 01/18/17 09:13; Start 01/12/17 at 09:00 Multivitamins/ Minerals (I-Robyn) 1 tab DAILY PO Last administered on 09:13; Start 01/12/17 at 09:00 Sertraline HCl (Zoloft) 50 mg DAILY PO Last administered on 01/18/17 09:13; Start 01/13/17 at 09:00 Mirtazapine (Remeron) 7.5 mg QHS PO Last administered on 01/18/17 19:15; Start 01/12/17 at 21:00 Cyanocobalamin (Vitamin B-12) 1,000 mcg WEEKLY IM Last administered on 18:29; Start 01/12/17 at 18:00 Amlodipine Besylate (Norvasc) 5 mg DAILY PO Last administered on 01/18/17 09: 13; Start 01/13/17 at 09:00 Olanzapine (ZyPREXA ZYDIS) 1.25 mg PRN Q2HR PRN PO PSYCHOSIS Last administered on 01/18/17 16:07; Start 01/13/17 at 17:00 Vitamin D (Vitamin D3) 50,000 unit WEEKLY PO ; Start 01/13/17 at 18:00; Stop 01/13/17 at 18:15; Status DC Vitamin D (Vitamin D3) 50,000 unit WEEKLY PO Last administered on 01/14/17 08 :59; Start 01/14/17 at 09:00 Quetiapine Fumarate (SEROquel) 25 mg QHS PO Last administered on 01/16/17 20: 57; Start 01/13/17 at 21:00; Stop 01/17/17 at 19:20; Status DC Benztropine Mesylate (Cogentin) 0.5 mg BID PO Last administered on 01/18/17 19:15; Start 01/13/17 at 21:00 Quetiapine Fumarate (SEROquel) 50 mg QHS PO Last administered on 01/18/17 19: 15; Start 01/17/17 at 21:00 Quetiapine Fumarate (SEROquel) 12.5 mg BID@0900,1400 PO ; Start 01/19/17 at 09: 00 Active Scripts Active Reported Preservision Areds Softgel (Vit A/Vit C/Vit E/Zinc/Copper) 1 Each Capsule 1 Each PO DAILY Fexofenadine Hcl 180 Mg Tablet 180 Mg PO DAILY Acetaminophen 500 Mg Tablet 1,000 Mg PO BID Lisinopril 5 Mg Tablet 5 Mg PO QHS Liquitears (Polyvinyl Alcohol) 15 Ml Drops 1 Drop OP BID Escitalopram Oxalate 20 Mg Tablet 20 Mg PO DAILY Donepezil Hcl 10 Mg Tablet 10 Mg PO QHS I have reviewed the current psychotropics carefully including drug interactions. Risk benefit ratio favors no change other than as noted in my dictated progress note. Diagnosis: Problems: (1) Anxiety disorder (2) Dementia, vascular, with delusions (3) Dementia, vascular, with depression (4) Major depressive disorder, recurrent episode (5) Impulse control disorder ALIYAH RAMÍREZ MD Jan 18, 2017 20:03
[2017-01-19 05:48] VITALS: BP 126/72
--- NOTE | 2017-01-19 06:16 | PN ---
DATE: 01/17/2017 This is a late entry for date of service 01/17/2017 and covers elements not covered in my initial note of 01/17/2017. SUBJECTIVE: I met with the patient evening of 01/17/2017. The patient slept 4-1/2 hours previous evening, disorganized, also has expressive aphasia, undresses herself, walks into other patient's rooms. This has been less evident on 01/17/2017, otherwise calm, compliant. REVIEW OF SYSTEMS: No CV, , pulmonary, eye, ENT system symptoms on review. Reliability poor. MENTAL STATUS EXAM: Oriented to herself. Insight, judgment, recent and remote memory, attention, concentration, fund of knowledge poor, consistent with her diagnoses as mentioned in my initial note. PLAN: Increase Seroquel from 25 mg at bedtime to 50 mg at bedtime. Rest of psychotropics will continue unchanged as noted in my initial note. MAN Geni RAMÍREZ MD DR: ARIANA/chandana JOB#: [id number] / [id number]
[2017-01-19] MEDS: CETIRIZINE HCL 10 MG TABLET PO SCH (09:00)
[2017-01-19] MEDS: MULTIVITAMIN I-VITE TABLET. PO SCH (09:00)
[2017-01-19] MEDS: BENZTROPINE MESYLATE 0.5 MG TABLET PO SCH ×2 (09:01→19:23)
[2017-01-19] MEDS: amLODIPine BESYLATE 5 MG TABLET PO SCH (09:01)
[2017-01-19] MEDS: ACETAMINOPHEN 500 MG TABLET PO SCH ×2 (09:01→19:23)
[2017-01-19] MEDS: SERTRALINE 50 MG TABLET. PO SCH (09:01)
[2017-01-19] MEDS: QUEtiapine 25 MG TABLET. PO SCH ×2 (09:03→14:03)
[2017-01-19] MEDS: POLYVINYL ALCOHOL 1.4% OPHTH SOLUTION 15ML BOTTLE. OU SCH ×2 (09:03→19:24)
[2017-01-19] MEDS: CYANOCOBALAMIN (VITAMIN B-12) 1,000 MCG/ML VIAL IM SCH (09:03)
[2017-01-19 16:52] VITALS: BP 159/89
[2017-01-19] MEDS: MIRTAZAPINE 7.5 MG TABLET. PO SCH (19:23)
[2017-01-19] MEDS: QUEtiapine 50 MG TABLET. PO SCH (19:23)
[2017-01-19] MEDS: DONEPEZIL HCL 10 MG TABLET PO SCH (19:23)
--- NOTE | 2017-01-19 20:19 | PDOC ---
Exam Note: Javier Note: Please also refer to the separate dictated note~for this date of service dictated separately.~Patient seen individually. Discussed the patient with Nursing staff reviewed the chart.~Reviewed interim history and current functioning. Reviewed vital signs,~Labs/ Radiology~and current medications noted below. Continue current treatment with the changes noted in the dictated addendum note Assessment: Vital Signs: Vital Signs Date Time Temp Pulse Resp B/P (MAP) Pulse Ox O2 Delivery O2 Flow Rate FiO2 01/19/17 16:52 97.3 98 18 159/89 (112) 94 Room Air I&O Intake and Output 01/19/17 07:00 Intake Total 600 ml Balance 600 ml Intake Oral 600 ml Current Medications: Meds: Current Medications Acetaminophen (Tylenol) 650 mg PRN Q6HRS PRN PO PAIN / TEMP; Start 01/11/17 at 18:00 Al Hydroxide/Mg Hydroxide (Mylanta Plus Xs) 15 ml PRN AFTMEALHC PRN PO DYSPEPSIA; Start 01/11/17 at 18:00 Magnesium Hydroxide (Milk Of Magnesia) 2,400 mg PRN QHS PRN PO CONSTIPATION Last administered on 01/13/17 21:08; Start 01/11/17 at 18:00 Donepezil HCl (Aricept) 10 mg QHS PO Last administered on 01/19/17 19:23; Start 01/11/17 at 21:00 Citalopram Hydrobromide (CeleXA) 40 mg DAILY PO Last administered on 01/12/17 07:58; Start 01/12/17 at 09:00; Stop 01/12/17 at 11:45; Status DC Acetaminophen (Tylenol) 1,000 mg BID PO Last administered on 01/19/17 19:23; Start 01/11/17 at 21:00 Lisinopril (Prinivil) 5 mg QHS PO Last administered on 01/11/17 19:39; Start 01/11/17 at 21:00; Stop 01/12/17 at 17:09; Status DC Artificial Tears (Artificial Tears) 1 drop BID OU Last administered on 19:24; Start 01/11/17 at 21:00 Cetirizine HCl (ZyrTEC) 10 mg DAILY PO Last administered on 01/19/17 09:00; Start 01/12/17 at 09:00 Multivitamins/ Minerals (I-Robyn) 1 tab DAILY PO Last administered on 09:00; Start 01/12/17 at 09:00 Sertraline HCl (Zoloft) 50 mg DAILY PO Last administered on 01/19/17 09:01; Start 01/13/17 at 09:00 Mirtazapine (Remeron) 7.5 mg QHS PO Last administered on 01/19/17 19:23; Start 01/12/17 at 21:00 Cyanocobalamin (Vitamin B-12) 1,000 mcg WEEKLY IM Last administered on 09:03; Start 01/12/17 at 18:00 Amlodipine Besylate (Norvasc) 5 mg DAILY PO Last administered on 01/19/17 09: 01; Start 01/13/17 at 09:00 Olanzapine (ZyPREXA ZYDIS) 1.25 mg PRN Q2HR PRN PO PSYCHOSIS Last administered on 01/19/17 14:04; Start 01/13/17 at 17:00 Vitamin D (Vitamin D3) 50,000 unit WEEKLY PO ; Start 01/13/17 at 18:00; Stop 01/13/17 at 18:15; Status DC Vitamin D (Vitamin D3) 50,000 unit WEEKLY PO Last administered on 01/14/17 08 :59; Start 01/14/17 at 09:00 Quetiapine Fumarate (SEROquel) 25 mg QHS PO Last administered on 01/16/17 20: 57; Start 01/13/17 at 21:00; Stop 01/17/17 at 19:20; Status DC Benztropine Mesylate (Cogentin) 0.5 mg BID PO Last administered on 01/19/17 19:23; Start 01/13/17 at 21:00 Quetiapine Fumarate (SEROquel) 50 mg QHS PO Last administered on 01/19/17 19: 23; Start 01/17/17 at 21:00 Quetiapine Fumarate (SEROquel) 12.5 mg BID@0900,1400 PO Last administered on 14:03; Start 01/19/17 at 09:00 Active Scripts Active Reported Preservision Areds Softgel (Vit A/Vit C/Vit E/Zinc/Copper) 1 Each Capsule 1 Each PO DAILY Fexofenadine Hcl 180 Mg Tablet 180 Mg PO DAILY Acetaminophen 500 Mg Tablet 1,000 Mg PO BID Lisinopril 5 Mg Tablet 5 Mg PO QHS Liquitears (Polyvinyl Alcohol) 15 Ml Drops 1 Drop OP BID Escitalopram Oxalate 20 Mg Tablet 20 Mg PO DAILY Donepezil Hcl 10 Mg Tablet 10 Mg PO QHS I have reviewed the current psychotropics carefully including drug interactions. Risk benefit ratio favors no change other than as noted in my dictated progress note. Diagnosis: Problems: (1) Anxiety disorder (2) Dementia, vascular, with delusions (3) Dementia, vascular, with depression (4) Major depressive disorder, recurrent episode (5) Impulse control disorder ALIYAH RAMÍREZ MD Jan 19, 2017 20:19
[2017-01-20 05:57] VITALS: BP 136/85
[2017-01-20] MEDS: SERTRALINE 50 MG TABLET. PO SCH (09:20)
[2017-01-20] MEDS: amLODIPine BESYLATE 5 MG TABLET PO SCH (09:20)
[2017-01-20] MEDS: MULTIVITAMIN I-VITE TABLET. PO SCH (09:20)
[2017-01-20] MEDS: QUEtiapine 25 MG TABLET. PO SCH ×2 (09:20→14:06)
[2017-01-20] MEDS: ACETAMINOPHEN 500 MG TABLET PO SCH ×2 (09:20→19:34)
[2017-01-20] MEDS: CETIRIZINE HCL 10 MG TABLET PO SCH (09:21)
[2017-01-20] MEDS: POLYVINYL ALCOHOL 1.4% OPHTH SOLUTION 15ML BOTTLE. OU SCH ×2 (09:21→19:35)
[2017-01-20] MEDS: BENZTROPINE MESYLATE 0.5 MG TABLET PO SCH ×2 (09:21→19:34)
[2017-01-20 16:08] VITALS: BP 109/60
[2017-01-20] MEDS: DONEPEZIL HCL 10 MG TABLET PO SCH (19:34)
[2017-01-20] MEDS: MIRTAZAPINE 7.5 MG TABLET. PO SCH (19:34)
[2017-01-20] MEDS: QUEtiapine 50 MG TABLET. PO SCH (19:34)
--- NOTE | 2017-01-20 20:03 | PDOC ---
Exam Note: Javier Note: Please also refer to the separate dictated note~for this date of service dictated separately.~Patient seen individually. Discussed the patient with Nursing staff reviewed the chart.~Reviewed interim history and current functioning. Reviewed vital signs,~Labs/ Radiology~and current medications noted below. Continue current treatment with the changes noted in the dictated addendum note Assessment: Vital Signs: Vital Signs Date Time Temp Pulse Resp B/P (MAP) Pulse Ox O2 Delivery O2 Flow Rate FiO2 01/20/17 16:08 97.8 97 109/60 (76) 98 Room Air 01/20/17 05:57 20 I&O Intake and Output 01/20/17 07:00 Intake Total 1080 ml Balance 1080 ml Intake Oral 1080 ml Current Medications: Meds: Current Medications Acetaminophen (Tylenol) 650 mg PRN Q6HRS PRN PO PAIN / TEMP; Start 01/11/17 at 18:00 Al Hydroxide/Mg Hydroxide (Mylanta Plus Xs) 15 ml PRN AFTMEALHC PRN PO DYSPEPSIA; Start 01/11/17 at 18:00 Magnesium Hydroxide (Milk Of Magnesia) 2,400 mg PRN QHS PRN PO CONSTIPATION Last administered on 01/13/17 21:08; Start 01/11/17 at 18:00 Donepezil HCl (Aricept) 10 mg QHS PO Last administered on 01/20/17 19:34; Start 01/11/17 at 21:00 Citalopram Hydrobromide (CeleXA) 40 mg DAILY PO Last administered on 01/12/17 07:58; Start 01/12/17 at 09:00; Stop 01/12/17 at 11:45; Status DC Acetaminophen (Tylenol) 1,000 mg BID PO Last administered on 01/20/17 19:34; Start 01/11/17 at 21:00 Lisinopril (Prinivil) 5 mg QHS PO Last administered on 01/11/17 19:39; Start 01/11/17 at 21:00; Stop 01/12/17 at 17:09; Status DC Artificial Tears (Artificial Tears) 1 drop BID OU Last administered on 19:35; Start 01/11/17 at 21:00 Cetirizine HCl (ZyrTEC) 10 mg DAILY PO Last administered on 01/20/17 09:21; Start 01/12/17 at 09:00 Multivitamins/ Minerals (I-Robyn) 1 tab DAILY PO Last administered on 09:20; Start 01/12/17 at 09:00 Sertraline HCl (Zoloft) 50 mg DAILY PO Last administered on 01/20/17 09:20; Start 01/13/17 at 09:00; Stop 01/20/17 at 18:44; Status DC Mirtazapine (Remeron) 7.5 mg QHS PO Last administered on 01/20/17 19:34; Start 01/12/17 at 21:00 Cyanocobalamin (Vitamin B-12) 1,000 mcg WEEKLY IM Last administered on 09:03; Start 01/12/17 at 18:00 Amlodipine Besylate (Norvasc) 5 mg DAILY PO Last administered on 01/20/17 09: 20; Start 01/13/17 at 09:00 Olanzapine (ZyPREXA ZYDIS) 1.25 mg PRN Q2HR PRN PO PSYCHOSIS Last administered on 01/19/17 14:04; Start 01/13/17 at 17:00 Vitamin D (Vitamin D3) 50,000 unit WEEKLY PO ; Start 01/13/17 at 18:00; Stop 01/13/17 at 18:15; Status DC Vitamin D (Vitamin D3) 50,000 unit WEEKLY PO Last administered on 01/14/17 08 :59; Start 01/14/17 at 09:00 Quetiapine Fumarate (SEROquel) 25 mg QHS PO Last administered on 01/16/17 20: 57; Start 01/13/17 at 21:00; Stop 01/17/17 at 19:20; Status DC Benztropine Mesylate (Cogentin) 0.5 mg BID PO Last administered on 01/20/17 19:34; Start 01/13/17 at 21:00 Quetiapine Fumarate (SEROquel) 50 mg QHS PO Last administered on 01/20/17 19: 34; Start 01/17/17 at 21:00 Quetiapine Fumarate (SEROquel) 12.5 mg BID@0900,1400 PO Last administered on 11 /17/17at 14:06; Start 01/19/17 at 09:00 Sertraline HCl (Zoloft) 75 mg DAILY PO ; Start 01/21/17 at 09:00 Active Scripts Active Reported Preservision Areds Softgel (Vit A/Vit C/Vit E/Zinc/Copper) 1 Each Capsule 1 Each PO DAILY Fexofenadine Hcl 180 Mg Tablet 180 Mg PO DAILY Acetaminophen 500 Mg Tablet 1,000 Mg PO BID Lisinopril 5 Mg Tablet 5 Mg PO QHS Liquitears (Polyvinyl Alcohol) 15 Ml Drops 1 Drop OP BID Escitalopram Oxalate 20 Mg Tablet 20 Mg PO DAILY Donepezil Hcl 10 Mg Tablet 10 Mg PO QHS I have reviewed the current psychotropics carefully including drug interactions. Risk benefit ratio favors no change other than as noted in my dictated progress note. Diagnosis: Problems: (1) Anxiety disorder (2) Dementia, vascular, with delusions (3) Dementia, vascular, with depression (4) Major depressive disorder, recurrent episode (5) Impulse control disorder ALIYAH RAMÍREZ MD Jan 20, 2017 20:03
[2017-01-21 05:49] VITALS: BP 139/80
[2017-01-21] MEDS: CHOLECALCIFEROL (VITAMIN D3) 50,000 UNIT CAPSULE PO SCH (07:56)
[2017-01-21] MEDS: ACETAMINOPHEN 500 MG TABLET PO SCH ×2 (07:56→19:38)
[2017-01-21] MEDS: MULTIVITAMIN I-VITE TABLET. PO SCH (07:56)
[2017-01-21] MEDS: QUEtiapine 25 MG TABLET. PO SCH ×2 (07:57→15:01)
[2017-01-21] MEDS: CETIRIZINE HCL 10 MG TABLET PO SCH (07:57)
[2017-01-21] MEDS: amLODIPine BESYLATE 5 MG TABLET PO SCH (07:57)
[2017-01-21] MEDS: BENZTROPINE MESYLATE 0.5 MG TABLET PO SCH ×2 (07:57→19:37)
[2017-01-21] MEDS: POLYVINYL ALCOHOL 1.4% OPHTH SOLUTION 15ML BOTTLE. OU SCH ×2 (07:59→19:38)
[2017-01-21] MEDS: SERTRALINE 50 MG TABLET. PO SCH (07:59)
[2017-01-21 16:00] VITALS: BP 133/82
[2017-01-21] MEDS: MIRTAZAPINE 7.5 MG TABLET. PO SCH (19:38)
[2017-01-21] MEDS: QUEtiapine 50 MG TABLET. PO SCH (19:38)
[2017-01-21] MEDS: DONEPEZIL HCL 10 MG TABLET PO SCH (19:38)
--- NOTE | 2017-01-21 21:14 | PDOC ---
Exam Note: Javier Note: Please also refer to the separate dictated note~for this date of service dictated separately.~Patient seen individually. Discussed the patient with Nursing staff reviewed the chart.~Reviewed interim history and current functioning. Reviewed vital signs,~Labs/ Radiology~and current medications noted below. Continue current treatment with the changes noted in the dictated addendum note Assessment: Vital Signs: Vital Signs Date Time Temp Pulse Resp B/P (MAP) Pulse Ox O2 Delivery O2 Flow Rate FiO2 01/21/17 16:00 98.5 70 16 133/82 (99) 95 01/20/17 16:08 Room Air I&O Intake and Output 01/21/17 07:00 Intake Total 1080 ml Balance 1080 ml Intake Oral 1080 ml # Bowel Movements 1 Current Medications: Meds: Current Medications Acetaminophen (Tylenol) 650 mg PRN Q6HRS PRN PO PAIN / TEMP; Start 01/11/17 at 18:00 Al Hydroxide/Mg Hydroxide (Mylanta Plus Xs) 15 ml PRN AFTMEALHC PRN PO DYSPEPSIA; Start 01/11/17 at 18:00 Magnesium Hydroxide (Milk Of Magnesia) 2,400 mg PRN QHS PRN PO CONSTIPATION Last administered on 01/13/17 21:08; Start 01/11/17 at 18:00 Donepezil HCl (Aricept) 10 mg QHS PO Last administered on 01/21/17 19:38; Start 01/11/17 at 21:00 Citalopram Hydrobromide (CeleXA) 40 mg DAILY PO Last administered on 01/12/17 07:58; Start 01/12/17 at 09:00; Stop 01/12/17 at 11:45; Status DC Acetaminophen (Tylenol) 1,000 mg BID PO Last administered on 01/21/17 19:38; Start 01/11/17 at 21:00 Lisinopril (Prinivil) 5 mg QHS PO Last administered on 01/11/17 19:39; Start 01/11/17 at 21:00; Stop 01/12/17 at 17:09; Status DC Artificial Tears (Artificial Tears) 1 drop BID OU Last administered on 19:38; Start 01/11/17 at 21:00 Cetirizine HCl (ZyrTEC) 10 mg DAILY PO Last administered on 01/21/17 07:57; Start 01/12/17 at 09:00 Multivitamins/ Minerals (I-Robyn) 1 tab DAILY PO Last administered on 07:56; Start 01/12/17 at 09:00 Sertraline HCl (Zoloft) 50 mg DAILY PO Last administered on 01/20/17 09:20; Start 01/13/17 at 09:00; Stop 01/20/17 at 18:44; Status DC Mirtazapine (Remeron) 7.5 mg QHS PO Last administered on 01/21/17 19:38; Start 01/12/17 at 21:00 Cyanocobalamin (Vitamin B-12) 1,000 mcg WEEKLY IM Last administered on 09:03; Start 01/12/17 at 18:00 Amlodipine Besylate (Norvasc) 5 mg DAILY PO Last administered on 01/21/17 07: 57; Start 01/13/17 at 09:00 Olanzapine (ZyPREXA ZYDIS) 1.25 mg PRN Q2HR PRN PO PSYCHOSIS Last administered on 01/19/17 14:04; Start 01/13/17 at 17:00 Vitamin D (Vitamin D3) 50,000 unit WEEKLY PO ; Start 01/13/17 at 18:00; Stop 01/13/17 at 18:15; Status DC Vitamin D (Vitamin D3) 50,000 unit WEEKLY PO Last administered on 01/21/17 07 :56; Start 01/14/17 at 09:00 Quetiapine Fumarate (SEROquel) 25 mg QHS PO Last administered on 01/16/17 20: 57; Start 01/13/17 at 21:00; Stop 01/17/17 at 19:20; Status DC Benztropine Mesylate (Cogentin) 0.5 mg BID PO Last administered on 01/21/17 19:37; Start 01/13/17 at 21:00 Quetiapine Fumarate (SEROquel) 50 mg QHS PO Last administered on 01/21/17 19: 38; Start 01/17/17 at 21:00 Quetiapine Fumarate (SEROquel) 12.5 mg BID@0900,1400 PO Last administered on 15:01; Start 01/19/17 at 09:00 Sertraline HCl (Zoloft) 75 mg DAILY PO Last administered on 01/21/17 07:59; Start 01/21/17 at 09:00 Active Scripts Active Reported Preservision Areds Softgel (Vit A/Vit C/Vit E/Zinc/Copper) 1 Each Capsule 1 Each PO DAILY Fexofenadine Hcl 180 Mg Tablet 180 Mg PO DAILY Acetaminophen 500 Mg Tablet 1,000 Mg PO BID Lisinopril 5 Mg Tablet 5 Mg PO QHS Liquitears (Polyvinyl Alcohol) 15 Ml Drops 1 Drop OP BID Escitalopram Oxalate 20 Mg Tablet 20 Mg PO DAILY Donepezil Hcl 10 Mg Tablet 10 Mg PO QHS I have reviewed the current psychotropics carefully including drug interactions. Risk benefit ratio favors no change other than as noted in my dictated progress note. Diagnosis: Problems: (1) Anxiety disorder (2) Dementia, vascular, with delusions (3) Dementia, vascular, with depression (4) Major depressive disorder, recurrent episode (5) Impulse control disorder ALIYAH RAMÍREZ MD Jan 21, 2017 21:14
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
[2017-01-22 06:11] VITALS: BP 179/97
[2017-01-22] MEDS: MULTIVITAMIN I-VITE TABLET. PO SCH (09:22)
[2017-01-22] MEDS: QUEtiapine 25 MG TABLET. PO SCH ×2 (09:23→15:25)
[2017-01-22] MEDS: CETIRIZINE HCL 10 MG TABLET PO SCH (09:23)
[2017-01-22] MEDS: amLODIPine BESYLATE 5 MG TABLET PO SCH (09:23)
[2017-01-22] MEDS: BENZTROPINE MESYLATE 0.5 MG TABLET PO SCH ×2 (09:23→19:58)
[2017-01-22] MEDS: ACETAMINOPHEN 500 MG TABLET PO SCH ×2 (09:24→19:58)
[2017-01-22] MEDS: POLYVINYL ALCOHOL 1.4% OPHTH SOLUTION 15ML BOTTLE. OU SCH ×2 (09:24→19:59)
[2017-01-22] MEDS: SERTRALINE 50 MG TABLET. PO SCH (09:24)
[2017-01-22 16:06] VITALS: BP 135/84
[2017-01-22] MEDS: MIRTAZAPINE 7.5 MG TABLET. PO SCH (19:58)
[2017-01-22] MEDS: DONEPEZIL HCL 10 MG TABLET PO SCH (19:58)
[2017-01-22] MEDS: QUEtiapine 50 MG TABLET. PO SCH (20:01)
--- NOTE | 2017-01-22 20:17 | PDOC ---
Exam Note: Javier Note: Please also refer to the separate dictated note~for this date of service dictated separately.~Patient seen individually. Discussed the patient with Nursing staff reviewed the chart.~Reviewed interim history and current functioning. Reviewed vital signs,~Labs/ Radiology~and current medications noted below. Continue current treatment with the changes noted in the dictated addendum note Assessment: Vital Signs: Vital Signs Date Time Temp Pulse Resp B/P (MAP) Pulse Ox O2 Delivery O2 Flow Rate FiO2 01/22/17 16:06 97.2 94 18 135/84 (101) 92 01/20/17 16:08 Room Air I&O Intake and Output 01/22/17 07:00 Intake Total 840 ml Balance 840 ml Intake Oral 840 ml Current Medications: Meds: Current Medications Acetaminophen (Tylenol) 650 mg PRN Q6HRS PRN PO PAIN / TEMP; Start 01/11/17 at 18:00 Al Hydroxide/Mg Hydroxide (Mylanta Plus Xs) 15 ml PRN AFTMEALHC PRN PO DYSPEPSIA; Start 01/11/17 at 18:00 Magnesium Hydroxide (Milk Of Magnesia) 2,400 mg PRN QHS PRN PO CONSTIPATION Last administered on 01/13/17 21:08; Start 01/11/17 at 18:00 Donepezil HCl (Aricept) 10 mg QHS PO Last administered on 01/22/17 19:58; Start 01/11/17 at 21:00 Citalopram Hydrobromide (CeleXA) 40 mg DAILY PO Last administered on 01/12/17 07:58; Start 01/12/17 at 09:00; Stop 01/12/17 at 11:45; Status DC Acetaminophen (Tylenol) 1,000 mg BID PO Last administered on 01/22/17 19:58; Start 01/11/17 at 21:00 Lisinopril (Prinivil) 5 mg QHS PO Last administered on 01/11/17 19:39; Start 01/11/17 at 21:00; Stop 01/12/17 at 17:09; Status DC Artificial Tears (Artificial Tears) 1 drop BID OU Last administered on 19:59; Start 01/11/17 at 21:00 Cetirizine HCl (ZyrTEC) 10 mg DAILY PO Last administered on 01/22/17 09:23; Start 01/12/17 at 09:00 Multivitamins/ Minerals (I-Robyn) 1 tab DAILY PO Last administered on 09:22; Start 01/12/17 at 09:00 Sertraline HCl (Zoloft) 50 mg DAILY PO Last administered on 01/20/17 09:20; Start 01/13/17 at 09:00; Stop 01/20/17 at 18:44; Status DC Mirtazapine (Remeron) 7.5 mg QHS PO Last administered on 01/22/17 19:58; Start 01/12/17 at 21:00 Cyanocobalamin (Vitamin B-12) 1,000 mcg WEEKLY IM Last administered on 09:03; Start 01/12/17 at 18:00 Amlodipine Besylate (Norvasc) 5 mg DAILY PO Last administered on 01/22/17 09: 23; Start 01/13/17 at 09:00 Olanzapine (ZyPREXA ZYDIS) 1.25 mg PRN Q2HR PRN PO PSYCHOSIS Last administered on 01/19/17 14:04; Start 01/13/17 at 17:00 Vitamin D (Vitamin D3) 50,000 unit WEEKLY PO ; Start 01/13/17 at 18:00; Stop 01/13/17 at 18:15; Status DC Vitamin D (Vitamin D3) 50,000 unit WEEKLY PO Last administered on 01/21/17 07 :56; Start 01/14/17 at 09:00 Quetiapine Fumarate (SEROquel) 25 mg QHS PO Last administered on 01/16/17 20: 57; Start 01/13/17 at 21:00; Stop 01/17/17 at 19:20; Status DC Benztropine Mesylate (Cogentin) 0.5 mg BID PO Last administered on 01/22/17 19:58; Start 01/13/17 at 21:00 Quetiapine Fumarate (SEROquel) 50 mg QHS PO Last administered on 01/22/17 20: 01; Start 01/17/17 at 21:00 Quetiapine Fumarate (SEROquel) 12.5 mg BID@0900,1400 PO Last administered on 15:25; Start 01/19/17 at 09:00 Sertraline HCl (Zoloft) 75 mg DAILY PO Last administered on 01/22/17 09:24; Start 01/21/17 at 09:00 Active Scripts Active Reported Preservision Areds Softgel (Vit A/Vit C/Vit E/Zinc/Copper) 1 Each Capsule 1 Each PO DAILY Fexofenadine Hcl 180 Mg Tablet 180 Mg PO DAILY Acetaminophen 500 Mg Tablet 1,000 Mg PO BID Lisinopril 5 Mg Tablet 5 Mg PO QHS Liquitears (Polyvinyl Alcohol) 15 Ml Drops 1 Drop OP BID Escitalopram Oxalate 20 Mg Tablet 20 Mg PO DAILY Donepezil Hcl 10 Mg Tablet 10 Mg PO QHS I have reviewed the current psychotropics carefully including drug interactions. Risk benefit ratio favors no change other than as noted in my dictated progress note. Diagnosis: Problems: (1) Anxiety disorder (2) Dementia, vascular, with delusions (3) Dementia, vascular, with depression (4) Major depressive disorder, recurrent episode (5) Impulse control disorder ALIYAH RAMÍREZ MD Jan 22, 2017 20:17
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
[2017-01-23 05:58] VITALS: BP 151/80
[2017-01-23] MEDS: SERTRALINE 50 MG TABLET. PO SCH (08:55)
[2017-01-23] MEDS: BENZTROPINE MESYLATE 0.5 MG TABLET PO SCH ×2 (08:55→20:08)
[2017-01-23] MEDS: ACETAMINOPHEN 500 MG TABLET PO SCH ×2 (08:55→20:08)
[2017-01-23] MEDS: QUEtiapine 25 MG TABLET. PO SCH ×2 (08:55→14:02)
[2017-01-23] MEDS: amLODIPine BESYLATE 5 MG TABLET PO SCH (08:56)
[2017-01-23] MEDS: CETIRIZINE HCL 10 MG TABLET PO SCH (08:56)
[2017-01-23] MEDS: MULTIVITAMIN I-VITE TABLET. PO SCH (08:56)
[2017-01-23] MEDS: POLYVINYL ALCOHOL 1.4% OPHTH SOLUTION 15ML BOTTLE. OU SCH ×2 (08:56→21:00)
--- NOTE | 2017-01-23 10:52 | PN ---
DATE: 01/20/2017 PSYCHIATRIC PROGRESS NOTE This is a late entry 01/20/2017 covers elements not covered in my initial note 01/20/2017. SUBJECTIVE: Met with the patient in the evening of 01/20/2017. The patient slept 9-1/2 hours previous evening, little more social, interactive, less aggressive. REVIEW OF SYSTEMS: No eye, ENT, CV, , pulmonary system symptoms on review. Reliability poor. MENTAL STATUS EXAM: Oriented to herself. Insight, judgment, recent and remote memory, attention, concentration, fund of knowledge poor, consistent with her diagnosis mentioned in my initial note. PLAN: Increase Zoloft from 50 mg a day to 75 mg a day. Rest unchanged from initial note. MAN Geni RAMÍREZ MD DR: ARIANA/chandana JOB#: [id number] / [id number]
--- NOTE | 2017-01-23 10:53 | PN ---
DATE: 01/21/2017 PSYCHIATRIC PROGRESS NOTE This late entry 01/21/2017 covers elements, not covered in my initial note of 01/21/2017. I met with the patient evening of 01/21/2017. The patient remains confused, wandering the hallways, ____ dressing herself. REVIEW OF SYSTEMS: No CV, , pulmonary, eye, ENT system symptoms on review. Reliability poor. MENTAL STATUS EXAM: Oriented to herself. Insight, judgment, recent and remote memory, attention, concentration, fund of knowledge poor, consistent with her diagnosis mentioned in my initial note. PLAN: No changes from my initial note for her current psychotropics. We will adjust as clinically indicated. ALIYAH RAMÍREZ MD DR: ARIANA/chandana JOB#: [id number] / [id number]
[2017-01-23 16:17] VITALS: BP 116/69
--- NOTE | 2017-01-23 19:57 | PDOC ---
Exam Note: Javier Note: Please also refer to the separate dictated note~for this date of service dictated separately.~Patient seen individually. Discussed the patient with Nursing staff reviewed the chart.~Reviewed interim history and current functioning. Reviewed vital signs,~Labs/ Radiology~and current medications noted below. Continue current treatment with the changes noted in the dictated addendum note Assessment: Vital Signs: Vital Signs Date Time Temp Pulse Resp B/P (MAP) Pulse Ox O2 Delivery O2 Flow Rate FiO2 01/23/17 16:17 97.3 72 18 116/69 (85) 96 01/20/17 16:08 Room Air I&O Intake and Output 01/23/17 07:00 Intake Total 1080 ml Balance 1080 ml Intake Oral 1080 ml Current Medications: Meds: Current Medications Acetaminophen (Tylenol) 650 mg PRN Q6HRS PRN PO PAIN / TEMP; Start 01/11/17 at 18:00 Al Hydroxide/Mg Hydroxide (Mylanta Plus Xs) 15 ml PRN AFTMEALHC PRN PO DYSPEPSIA; Start 01/11/17 at 18:00 Magnesium Hydroxide (Milk Of Magnesia) 2,400 mg PRN QHS PRN PO CONSTIPATION Last administered on 01/13/17 21:08; Start 01/11/17 at 18:00 Donepezil HCl (Aricept) 10 mg QHS PO Last administered on 01/22/17 19:58; Start 01/11/17 at 21:00 Citalopram Hydrobromide (CeleXA) 40 mg DAILY PO Last administered on 01/12/17 07:58; Start 01/12/17 at 09:00; Stop 01/12/17 at 11:45; Status DC Acetaminophen (Tylenol) 1,000 mg BID PO Last administered on 01/23/17 08:55; Start 01/11/17 at 21:00 Lisinopril (Prinivil) 5 mg QHS PO Last administered on 01/11/17 19:39; Start 01/11/17 at 21:00; Stop 01/12/17 at 17:09; Status DC Artificial Tears (Artificial Tears) 1 drop BID OU Last administered on 08:56; Start 01/11/17 at 21:00 Cetirizine HCl (ZyrTEC) 10 mg DAILY PO Last administered on 01/23/17 08:56; Start 01/12/17 at 09:00 Multivitamins/ Minerals (I-Robyn) 1 tab DAILY PO Last administered on 08:56; Start 01/12/17 at 09:00 Sertraline HCl (Zoloft) 50 mg DAILY PO Last administered on 01/20/17 09:20; Start 01/13/17 at 09:00; Stop 01/20/17 at 18:44; Status DC Mirtazapine (Remeron) 7.5 mg QHS PO Last administered on 01/22/17 19:58; Start 01/12/17 at 21:00 Cyanocobalamin (Vitamin B-12) 1,000 mcg WEEKLY IM Last administered on 09:03; Start 01/12/17 at 18:00 Amlodipine Besylate (Norvasc) 5 mg DAILY PO Last administered on 01/23/17 08: 56; Start 01/13/17 at 09:00 Olanzapine (ZyPREXA ZYDIS) 1.25 mg PRN Q2HR PRN PO PSYCHOSIS Last administered on 01/19/17 14:04; Start 01/13/17 at 17:00 Vitamin D (Vitamin D3) 50,000 unit WEEKLY PO ; Start 01/13/17 at 18:00; Stop 01/13/17 at 18:15; Status DC Vitamin D (Vitamin D3) 50,000 unit WEEKLY PO Last administered on 01/21/17 07 :56; Start 01/14/17 at 09:00 Quetiapine Fumarate (SEROquel) 25 mg QHS PO Last administered on 01/16/17 20: 57; Start 01/13/17 at 21:00; Stop 01/17/17 at 19:20; Status DC Benztropine Mesylate (Cogentin) 0.5 mg BID PO Last administered on 01/23/17 08:55; Start 01/13/17 at 21:00 Quetiapine Fumarate (SEROquel) 50 mg QHS PO Last administered on 01/22/17 20: 01; Start 01/17/17 at 21:00 Quetiapine Fumarate (SEROquel) 12.5 mg BID@0900,1400 PO Last administered on 14:02; Start 01/19/17 at 09:00 Sertraline HCl (Zoloft) 75 mg DAILY PO Last administered on 01/23/17 08:55; Start 01/21/17 at 09:00 Active Scripts Active Reported Preservision Areds Softgel (Vit A/Vit C/Vit E/Zinc/Copper) 1 Each Capsule 1 Each PO DAILY Fexofenadine Hcl 180 Mg Tablet 180 Mg PO DAILY Acetaminophen 500 Mg Tablet 1,000 Mg PO BID Lisinopril 5 Mg Tablet 5 Mg PO QHS Liquitears (Polyvinyl Alcohol) 15 Ml Drops 1 Drop OP BID Escitalopram Oxalate 20 Mg Tablet 20 Mg PO DAILY Donepezil Hcl 10 Mg Tablet 10 Mg PO QHS I have reviewed the current psychotropics carefully including drug interactions. Risk benefit ratio favors no change other than as noted in my dictated progress note. Diagnosis: Problems: (1) Anxiety disorder (2) Dementia, vascular, with delusions (3) Dementia, vascular, with depression (4) Major depressive disorder, recurrent episode (5) Impulse control disorder ALIYAH RAMÍREZ MD Jan 23, 2017 19:56
[2017-01-23] MEDS: MIRTAZAPINE 7.5 MG TABLET. PO SCH (20:08)
[2017-01-23] MEDS: DONEPEZIL HCL 10 MG TABLET PO SCH (20:08)
[2017-01-23] MEDS: QUEtiapine 50 MG TABLET. PO SCH (20:57)
--- NOTE | 2017-01-24 03:55 | PN ---
DATE: 01/22/2017 This is a late entry for 01/22/2017 and covers the elements not covered in my initial note. SUBJECTIVE: Overall, the patient remains confused and has expressive aphasia, but the agitation and undressing is better. REVIEW OF SYSTEMS: No CV, , pulmonary, eye, ENT system symptoms on review. Reliability poor. MENTAL STATUS EXAM: Oriented to herself. Insight, judgment, recent and remote memory, attention, concentration, fund of knowledge poor, consistent with her diagnosis mentioned in my initial note. PLAN: Continue current psychotropics, unchanged as noted in my initial note, may need to increase Zoloft in due course and if agitation resurfaces Seroquel may need to be increased. MAN Geni RAMÍERZ MD DR: ARIANA/chandana JOB#: [id number] / [id number]
--- NOTE | 2017-01-24 03:56 | PN ---
DATE: 01/23/2017 This note covers elements not covered in my initial note of 01/23/2017. SUBJECTIVE: I met with the patient in the morning of 01/23/2017. The patient remains confused, but no behavior problems noted. She does have word problems and expressive aphasia. REVIEW OF SYSTEMS: No CV, , pulmonary, eye, ENT system symptoms on review. Reliability poor. MENTAL STATUS EXAM: Oriented to herself. Insight, judgment, recent and remote memory, attention, concentration, fund of knowledge poor, consistent with her diagnosis mentioned in my initial note. PLAN: Continue current psychotropics mentioned in my initial note. Adjust further as clinically indicated. MAN Geni RAMÍREZ MD DR: ARIANA/chandana JOB#: [id number] / [id number]
[2017-01-24 06:01] VITALS: BP 116/73
[2017-01-24] MEDS: QUEtiapine 25 MG TABLET. PO SCH ×2 (08:02→13:39)
[2017-01-24] MEDS: SERTRALINE 50 MG TABLET. PO SCH (08:02)
[2017-01-24] MEDS: ACETAMINOPHEN 500 MG TABLET PO SCH ×2 (08:02→20:12)
[2017-01-24] MEDS: BENZTROPINE MESYLATE 0.5 MG TABLET PO SCH ×2 (08:02→20:12)
[2017-01-24] MEDS: MULTIVITAMIN I-VITE TABLET. PO SCH (08:03)
[2017-01-24] MEDS: CETIRIZINE HCL 10 MG TABLET PO SCH (08:03)
[2017-01-24] MEDS: amLODIPine BESYLATE 5 MG TABLET PO SCH (08:03)
[2017-01-24] MEDS: POLYVINYL ALCOHOL 1.4% OPHTH SOLUTION 15ML BOTTLE. OU SCH ×2 (08:05→20:14)
[2017-01-24 16:14] VITALS: BP 108/75
[2017-01-24] MEDS: MIRTAZAPINE 7.5 MG TABLET. PO SCH (20:12)
[2017-01-24] MEDS: QUEtiapine 50 MG TABLET. PO SCH (20:12)
[2017-01-24] MEDS: DONEPEZIL HCL 10 MG TABLET PO SCH (20:12)
[2017-01-25 06:00] VITALS: BP 133/78
[2017-01-25 07:28] LABS: BASO # 0.1 x10^3/uL (0.0-0.2); BASO % 1 % (0-3); EOS # 0.1 x10^3/uL (0.0-0.7); EOS % 2 % (0-3); HEMATOCRIT 36.5 % (36.0-47.0); HEMOGLOBIN 12.7 g/dL (12.0-15.5); LYMPH # 1.3 x10^3/uL (1.0-4.8); LYMPH % 21 % (24-48); MEAN CORPUSCULAR HEMOGLOBIN 32 pg (25-35); MEAN CORPUSCULAR HGB CONC 35 g/dL (31-37); MEAN CORPUSCULAR VOLUME 93 fL (79-100); MONO # 0.5 x10^3/uL (0.0-1.1); MONO % 7 % (0-9); NEUT # 4.3 x10^3uL (1.8-7.7); NEUT % 69 % (31-73); PLATELET COUNT 299 x10^3/uL (140-400); RED BLOOD COUNT 3.92 x10^6/uL (3.50-5.40); RED CELL DISTRIBUTION WIDTH 12.2 % (11.5-14.5); WHITE BLOOD COUNT 6.3 x10^3/uL (4.0-11.0)
[2017-01-25 07:42] LABS: ALBUMIN 3.4 g/dL (3.4-5.0); CALCIUM 8.8 mg/dL (8.5-10.1); CREATININE 1.1 mg/dL (0.6-1.0); POTASSIUM 4.4 mmol/L (3.5-5.1); TOTAL BILIRUBIN 0.4 mg/dL (0.2-1.0); TOTAL PROTEIN 6.8 g/dL (6.4-8.2)
[2017-01-25] MEDS: MULTIVITAMIN I-VITE TABLET. PO SCH (08:16)
[2017-01-25] MEDS: ACETAMINOPHEN 500 MG TABLET PO SCH ×2 (08:16→19:28)
[2017-01-25] MEDS: CETIRIZINE HCL 10 MG TABLET PO SCH (08:16)
[2017-01-25] MEDS: BENZTROPINE MESYLATE 0.5 MG TABLET PO SCH ×2 (08:17→19:28)
[2017-01-25] MEDS: POLYVINYL ALCOHOL 1.4% OPHTH SOLUTION 15ML BOTTLE. OU SCH ×2 (08:17→19:30)
[2017-01-25] MEDS: QUEtiapine 25 MG TABLET. PO SCH ×2 (08:17→13:52)
[2017-01-25] MEDS: SERTRALINE 50 MG TABLET. PO SCH (08:17)
[2017-01-25] MEDS: amLODIPine BESYLATE 5 MG TABLET PO SCH (08:19)
[2017-01-25] MEDS: MAGNESIUM HYDROXIDE 2,400 MG/30 ML ORAL.SUSP. PO PRN (13:52)
[2017-01-25 16:07] VITALS: BP 118/81
[2017-01-25] MEDS: MIRTAZAPINE 7.5 MG TABLET. PO SCH (19:27)
[2017-01-25] MEDS: QUEtiapine 50 MG TABLET. PO SCH (19:28)
[2017-01-25] MEDS: DONEPEZIL HCL 10 MG TABLET PO SCH (19:28)
[2017-01-26 05:56] VITALS: BP 122/78
[2017-01-26] MEDS: CYANOCOBALAMIN (VITAMIN B-12) 1,000 MCG/ML VIAL IM SCH (08:49)
[2017-01-26] MEDS: ACETAMINOPHEN 500 MG TABLET PO SCH ×2 (08:49→20:16)
[2017-01-26] MEDS: CETIRIZINE HCL 10 MG TABLET PO SCH (08:50)
[2017-01-26] MEDS: QUEtiapine 25 MG TABLET. PO SCH ×2 (08:50→14:44)
[2017-01-26] MEDS: amLODIPine BESYLATE 5 MG TABLET PO SCH (08:50)
[2017-01-26] MEDS: MULTIVITAMIN I-VITE TABLET. PO SCH (08:50)
[2017-01-26] MEDS: SERTRALINE 50 MG TABLET. PO SCH (08:50)
[2017-01-26] MEDS: BENZTROPINE MESYLATE 0.5 MG TABLET PO SCH ×2 (08:50→20:16)
[2017-01-26] MEDS: POLYVINYL ALCOHOL 1.4% OPHTH SOLUTION 15ML BOTTLE. OU SCH ×2 (08:53→20:17)
[2017-01-26 16:10] VITALS: BP 123/78
[2017-01-26] MEDS: QUEtiapine 50 MG TABLET. PO SCH (20:16)
[2017-01-26] MEDS: DONEPEZIL HCL 10 MG TABLET PO SCH (20:17)
[2017-01-26] MEDS: MIRTAZAPINE 7.5 MG TABLET. PO SCH (20:17)
[2017-01-27 05:50] VITALS: BP 164/98
[2017-01-27] MEDS: MULTIVITAMIN I-VITE TABLET. PO SCH (08:18)
[2017-01-27] MEDS: POLYVINYL ALCOHOL 1.4% OPHTH SOLUTION 15ML BOTTLE. OU SCH ×2 (08:18→20:32)
[2017-01-27] MEDS: CETIRIZINE HCL 10 MG TABLET PO SCH (08:18)
[2017-01-27] MEDS: BENZTROPINE MESYLATE 0.5 MG TABLET PO SCH ×2 (08:18→20:32)
[2017-01-27] MEDS: QUEtiapine 25 MG TABLET. PO SCH ×2 (08:18→13:04)
[2017-01-27] MEDS: SERTRALINE 50 MG TABLET. PO SCH (08:19)
[2017-01-27] MEDS: ACETAMINOPHEN 500 MG TABLET PO SCH ×2 (08:19→20:32)
[2017-01-27] MEDS: amLODIPine BESYLATE 5 MG TABLET PO SCH (08:19)
--- NOTE | 2017-01-27 09:03 | PN ---
DATE: 01/26/2017 SUBJECTIVE: The patient was seen today, met with the staff, chart reviewed. The patient still is exhibiting some emotional lability, tearful at times, but continues to show significant cognitive deficits. Staff reports no major behavior problems. OBSERVATION: VITAL SIGNS: Temperature 98.3, blood pressure 122/78, pulse 86, respirations 16, O2 sat 95%. Slept about 8 hours last night. LABORATORY DATA: The patient's lab reviewed. MEDICATIONS: The patient's current medications include Zoloft 75 mg daily, Seroquel 12.5 mg b.i.d. and 50 mg at night, Cogentin 0.5 mg b.i.d., mirtazapine 7.5 mg at night, Aricept 10 mg at night. The patient is not having any side effects to the medications. ASSESSMENT: 1. Major neurocognitive disorder, Alzheimer's, vascular with depression. 2. Major depressive disorder, recurrent with suicidal ideation. PLAN: Plan is to continue with the treatment. RANI HODGE MD DR: RENEE/chandana JOB#: [id number] / [id number]
[2017-01-27 15:52] VITALS: BP 115/78
--- NOTE | 2017-01-27 19:40 | PN ---
DATE: 01/27/2017 SUBJECTIVE: The patient was seen today, met with the staff, chart reviewed. The patient continues to have some emotional lability and continuing to show fairly significant cognitive deficits. Staff reports no major behavior problems. OBSERVATION: VITAL SIGNS: Temperature 97.5, blood pressure 164/98, pulse 78, respirations 18, O2 sat 97%. Slept about 6 hours last night. The patient's appetite has improved. MEDICATIONS: The patient's current medications include Zoloft 75 mg daily, Seroquel 12.5 mg b.i.d. and 50 mg at night, Cogentin 0.5 mg b.i.d., mirtazapine 7.5 mg at night, and Aricept 10 mg at night. ASSESSMENT: 1. Major neurocognitive disorder, Alzheimer's, vascular with the depression. 2. Major depressive disorder, recurrent with suicidal ideation. PLAN: To continue with the treatment. RANI HODGE MD DR: RENEE/chandana JOB#: [id number] / [id number]
[2017-01-27] MEDS: MIRTAZAPINE 7.5 MG TABLET. PO SCH (20:32)
[2017-01-27] MEDS: QUEtiapine 50 MG TABLET. PO SCH (20:32)
[2017-01-27] MEDS: DONEPEZIL HCL 10 MG TABLET PO SCH (20:32)
[2017-01-28 06:15] VITALS: BP 149/82
[2017-01-28] MEDS: BENZTROPINE MESYLATE 0.5 MG TABLET PO SCH ×2 (09:08→20:22)
[2017-01-28] MEDS: MULTIVITAMIN I-VITE TABLET. PO SCH (09:08)
[2017-01-28] MEDS: amLODIPine BESYLATE 5 MG TABLET PO SCH (09:09)
[2017-01-28] MEDS: SERTRALINE 50 MG TABLET. PO SCH (09:10)
[2017-01-28] MEDS: ACETAMINOPHEN 500 MG TABLET PO SCH ×2 (09:10→20:22)
[2017-01-28] MEDS: CETIRIZINE HCL 10 MG TABLET PO SCH (09:10)
[2017-01-28] MEDS: QUEtiapine 25 MG TABLET. PO SCH ×2 (09:10→14:08)
[2017-01-28] MEDS: POLYVINYL ALCOHOL 1.4% OPHTH SOLUTION 15ML BOTTLE. OU SCH ×2 (09:14→20:22)
[2017-01-28] MEDS: CHOLECALCIFEROL (VITAMIN D3) 50,000 UNIT CAPSULE PO SCH (09:15)
[2017-01-28 16:13] VITALS: BP 135/87
[2017-01-28 16:25] VITALS: BP 171/77
[2017-01-28] MEDS: QUEtiapine 50 MG TABLET. PO SCH (20:22)
[2017-01-28] MEDS: MIRTAZAPINE 7.5 MG TABLET. PO SCH (20:22)
[2017-01-28] MEDS: DONEPEZIL HCL 10 MG TABLET PO SCH (20:23)
--- NOTE | 2017-01-28 20:56 | PDOC ---
Exam Note: Javier Note: Please also refer to the separate dictated note~for this date of service dictated separately.~Patient seen individually. Discussed the patient with Nursing staff reviewed the chart.~Reviewed interim history and current functioning. Reviewed vital signs,~Labs/ Radiology~and current medications noted below. Continue current treatment with the changes noted in the dictated addendum note Assessment: Vital Signs: Vital Signs Date Time Temp Pulse Resp B/P (MAP) Pulse Ox O2 Delivery O2 Flow Rate FiO2 01/28/17 16:25 97.6 75 18 171/77 (108) 98 01/28/17 06:15 Room Air I&O Intake and Output 01/28/17 07:00 Intake Total 1080 ml Balance 1080 ml Intake Oral 1080 ml Current Medications: Meds: Current Medications Acetaminophen (Tylenol) 650 mg PRN Q6HRS PRN PO PAIN / TEMP; Start 01/11/17 at 18:00 Al Hydroxide/Mg Hydroxide (Mylanta Plus Xs) 15 ml PRN AFTMEALHC PRN PO DYSPEPSIA; Start 01/11/17 at 18:00 Magnesium Hydroxide (Milk Of Magnesia) 2,400 mg PRN QHS PRN PO CONSTIPATION Last administered on 01/13/17 21:08; Start 01/11/17 at 18:00 Donepezil HCl (Aricept) 10 mg QHS PO Last administered on 01/28/17 20:23; Start 01/11/17 at 21:00 Citalopram Hydrobromide (CeleXA) 40 mg DAILY PO Last administered on 01/12/17 07:58; Start 01/12/17 at 09:00; Stop 01/12/17 at 11:45; Status DC Acetaminophen (Tylenol) 1,000 mg BID PO Last administered on 01/28/17 20:22; Start 01/11/17 at 21:00 Lisinopril (Prinivil) 5 mg QHS PO Last administered on 01/11/17 19:39; Start 01/11/17 at 21:00; Stop 01/12/17 at 17:09; Status DC Artificial Tears (Artificial Tears) 1 drop BID OU Last administered on 20:22; Start 01/11/17 at 21:00 Cetirizine HCl (ZyrTEC) 10 mg DAILY PO Last administered on 01/28/17 09:10; Start 01/12/17 at 09:00 Multivitamins/ Minerals (I-Robyn) 1 tab DAILY PO Last administered on 09:08; Start 01/12/17 at 09:00 Sertraline HCl (Zoloft) 50 mg DAILY PO Last administered on 01/20/17 09:20; Start 01/13/17 at 09:00; Stop 01/20/17 at 18:44; Status DC Mirtazapine (Remeron) 7.5 mg QHS PO Last administered on 01/28/17 20:22; Start 01/12/17 at 21:00 Cyanocobalamin (Vitamin B-12) 1,000 mcg WEEKLY IM Last administered on 08:49; Start 01/12/17 at 18:00 Amlodipine Besylate (Norvasc) 5 mg DAILY PO Last administered on 01/28/17 09: 09; Start 01/13/17 at 09:00 Olanzapine (ZyPREXA ZYDIS) 1.25 mg PRN Q2HR PRN PO PSYCHOSIS Last administered on 01/19/17 14:04; Start 01/13/17 at 17:00 Vitamin D (Vitamin D3) 50,000 unit WEEKLY PO ; Start 01/13/17 at 18:00; Stop 01/13/17 at 18:15; Status DC Vitamin D (Vitamin D3) 50,000 unit WEEKLY PO Last administered on 01/28/17 09 :15; Start 01/14/17 at 09:00 Quetiapine Fumarate (SEROquel) 25 mg QHS PO Last administered on 01/16/17 20: 57; Start 01/13/17 at 21:00; Stop 01/17/17 at 19:20; Status DC Benztropine Mesylate (Cogentin) 0.5 mg BID PO Last administered on 01/28/17 20:22; Start 01/13/17 at 21:00 Quetiapine Fumarate (SEROquel) 50 mg QHS PO Last administered on 01/28/17 20: 22; Start 01/17/17 at 21:00 Quetiapine Fumarate (SEROquel) 12.5 mg BID@0900,1400 PO Last administered on 14:08; Start 01/19/17 at 09:00 Sertraline HCl (Zoloft) 75 mg DAILY PO Last administered on 01/28/17 09:10; Start 01/21/17 at 09:00 Active Scripts Active Reported Preservision Areds Softgel (Vit A/Vit C/Vit E/Zinc/Copper) 1 Each Capsule 1 Each PO DAILY Fexofenadine Hcl 180 Mg Tablet 180 Mg PO DAILY Acetaminophen 500 Mg Tablet 1,000 Mg PO BID Lisinopril 5 Mg Tablet 5 Mg PO QHS Liquitears (Polyvinyl Alcohol) 15 Ml Drops 1 Drop OP BID Escitalopram Oxalate 20 Mg Tablet 20 Mg PO DAILY Donepezil Hcl 10 Mg Tablet 10 Mg PO QHS I have reviewed the current psychotropics carefully including drug interactions. Risk benefit ratio favors no change other than as noted in my dictated progress note. Diagnosis: Problems: (1) Anxiety disorder (2) Dementia, vascular, with delusions (3) Dementia, vascular, with depression (4) Major depressive disorder, recurrent episode (5) Impulse control disorder ALIYAH RAMÍREZ MD Jan 28, 2017 20:56
[2017-01-29 06:16] VITALS: BP 129/76
[2017-01-29] MEDS: MULTIVITAMIN I-VITE TABLET. PO SCH (09:22)
[2017-01-29] MEDS: POLYVINYL ALCOHOL 1.4% OPHTH SOLUTION 15ML BOTTLE. OU SCH ×2 (09:22→20:02)
[2017-01-29] MEDS: BENZTROPINE MESYLATE 0.5 MG TABLET PO SCH ×2 (09:22→20:01)
[2017-01-29] MEDS: amLODIPine BESYLATE 5 MG TABLET PO SCH (09:23)
[2017-01-29] MEDS: QUEtiapine 25 MG TABLET. PO SCH ×2 (09:23→14:19)
[2017-01-29] MEDS: ACETAMINOPHEN 500 MG TABLET PO SCH ×2 (09:24→20:01)
[2017-01-29] MEDS: CETIRIZINE HCL 10 MG TABLET PO SCH (09:24)
[2017-01-29] MEDS: SERTRALINE 50 MG TABLET. PO SCH (09:24)
--- NOTE | 2017-01-29 09:49 | PN ---
DATE: 01/25/2017 SUBJECTIVE: The patient was seen today, met with the staff, chart reviewed. The patient continues to show some emotional lability, tearful at times, still confused. The patient also has difficulty with communication, expressive aphasia. The patient is able to walk. OBSERVATION: Temperature 98.2, blood pressure 133/78, pulse 85, respirations 16, O2 sat 97%. Slept about 7 hours last night. Appetite is fair. MEDICATIONS: The patient's current medications include Zoloft 75 mg daily, Seroquel 12.5 mg b.i.d. and 50 mg at night, Cogentin 0.5 mg b.i.d., mirtazapine 7.5 mg at night, Aricept 10 mg at night. The patient is not having any side effects from medications. The patient's lab also reviewed. ASSESSMENT: Major neurocognitive disorder, Alzheimer's and vascular, and also major depression, recurrent. PLAN: The patient will continue with the treatment. Monitor behavior. RANI HODGE MD DR: RENEE/chandana JOB#: [id number] / [id number]
[2017-01-29 15:57] VITALS: BP 138/87
--- NOTE | 2017-01-29 17:24 | PN ---
DATE: 01/28/2017 This late entry, date of service, 01/28/2017, covers elements not covered in my initial note of 01/28/2017. SUBJECTIVE: I met with the patient the evening of 01/28/2017. The patient remains confused, irritable at times, but calmer than before, more cooperative with meds, cares, and assessments. Her expressive aphasia seems less pronounced per nursing observation. REVIEW OF SYSTEMS: No CV, , pulmonary, eye, ENT system symptoms on review. Reliability poor. MENTAL STATUS EXAM: Oriented to herself. Insight, judgment, recent and remote memory, attention, concentration, fund of knowledge poor, consistent with her diagnoses. IMPRESSION: Major neurocognitive disorder, Alzheimer's, vascular with depression; delusion; behavioral disturbance; major depressive disorder, recurrent; anxiety disorder, unspecified; impulse control disorder, unspecified. PLAN: Continue current psychotropics mentioned in my initial note. Reviewed drug interactions. Risk/benefit ratio favors no further change. ALIYAH RAMÍREZ MD DR: ARIANA/chandana JOB#: [id number] / [id number]
--- NOTE | 2017-01-29 19:52 | PDOC ---
Exam Note: Javier Note: Please also refer to the separate dictated note~for this date of service dictated separately.~Patient seen individually. Discussed the patient with Nursing staff reviewed the chart.~Reviewed interim history and current functioning. Reviewed vital signs,~Labs/ Radiology~and current medications noted below. Continue current treatment with the changes noted in the dictated addendum note Assessment: Vital Signs: Vital Signs Date Time Temp Pulse Resp B/P (MAP) Pulse Ox O2 Delivery O2 Flow Rate FiO2 01/29/17 15:57 97.6 65 18 138/87 (104) 96 01/28/17 06:15 Room Air I&O Intake and Output 01/29/17 07:00 Intake Total 840 ml Balance 840 ml Intake Oral 840 ml # Bowel Movements 1 Current Medications: Meds: Current Medications Acetaminophen (Tylenol) 650 mg PRN Q6HRS PRN PO PAIN / TEMP; Start 01/11/17 at 18:00 Al Hydroxide/Mg Hydroxide (Mylanta Plus Xs) 15 ml PRN AFTMEALHC PRN PO DYSPEPSIA; Start 01/11/17 at 18:00 Magnesium Hydroxide (Milk Of Magnesia) 2,400 mg PRN QHS PRN PO CONSTIPATION Last administered on 01/13/17 21:08; Start 01/11/17 at 18:00 Donepezil HCl (Aricept) 10 mg QHS PO Last administered on 01/28/17 20:23; Start 01/11/17 at 21:00 Citalopram Hydrobromide (CeleXA) 40 mg DAILY PO Last administered on 01/12/17 07:58; Start 01/12/17 at 09:00; Stop 01/12/17 at 11:45; Status DC Acetaminophen (Tylenol) 1,000 mg BID PO Last administered on 01/29/17 09:24; Start 01/11/17 at 21:00 Lisinopril (Prinivil) 5 mg QHS PO Last administered on 01/11/17 19:39; Start 01/11/17 at 21:00; Stop 01/12/17 at 17:09; Status DC Artificial Tears (Artificial Tears) 1 drop BID OU Last administered on 09:22; Start 01/11/17 at 21:00 Cetirizine HCl (ZyrTEC) 10 mg DAILY PO Last administered on 01/29/17 09:24; Start 01/12/17 at 09:00 Multivitamins/ Minerals (I-Robyn) 1 tab DAILY PO Last administered on 09:22; Start 01/12/17 at 09:00 Sertraline HCl (Zoloft) 50 mg DAILY PO Last administered on 01/20/17 09:20; Start 01/13/17 at 09:00; Stop 01/20/17 at 18:44; Status DC Mirtazapine (Remeron) 7.5 mg QHS PO Last administered on 01/28/17 20:22; Start 01/12/17 at 21:00 Cyanocobalamin (Vitamin B-12) 1,000 mcg WEEKLY IM Last administered on 08:49; Start 01/12/17 at 18:00 Amlodipine Besylate (Norvasc) 5 mg DAILY PO Last administered on 01/29/17 09: 23; Start 01/13/17 at 09:00 Olanzapine (ZyPREXA ZYDIS) 1.25 mg PRN Q2HR PRN PO PSYCHOSIS Last administered on 01/19/17 14:04; Start 01/13/17 at 17:00 Vitamin D (Vitamin D3) 50,000 unit WEEKLY PO ; Start 01/13/17 at 18:00; Stop 01/13/17 at 18:15; Status DC Vitamin D (Vitamin D3) 50,000 unit WEEKLY PO Last administered on 01/28/17 09 :15; Start 01/14/17 at 09:00 Quetiapine Fumarate (SEROquel) 25 mg QHS PO Last administered on 01/16/17 20: 57; Start 01/13/17 at 21:00; Stop 01/17/17 at 19:20; Status DC Benztropine Mesylate (Cogentin) 0.5 mg BID PO Last administered on 01/29/17 09:22; Start 01/13/17 at 21:00 Quetiapine Fumarate (SEROquel) 50 mg QHS PO Last administered on 01/28/17 20: 22; Start 01/17/17 at 21:00 Quetiapine Fumarate (SEROquel) 12.5 mg BID@0900,1400 PO Last administered on 14:19; Start 01/19/17 at 09:00 Sertraline HCl (Zoloft) 75 mg DAILY PO Last administered on 01/29/17 09:24; Start 01/21/17 at 09:00 Active Scripts Active Reported Preservision Areds Softgel (Vit A/Vit C/Vit E/Zinc/Copper) 1 Each Capsule 1 Each PO DAILY Fexofenadine Hcl 180 Mg Tablet 180 Mg PO DAILY Acetaminophen 500 Mg Tablet 1,000 Mg PO BID Lisinopril 5 Mg Tablet 5 Mg PO QHS Liquitears (Polyvinyl Alcohol) 15 Ml Drops 1 Drop OP BID Escitalopram Oxalate 20 Mg Tablet 20 Mg PO DAILY Donepezil Hcl 10 Mg Tablet 10 Mg PO QHS I have reviewed the current psychotropics carefully including drug interactions. Risk benefit ratio favors no change other than as noted in my dictated progress note. Diagnosis: Problems: (1) Anxiety disorder (2) Dementia, vascular, with delusions (3) Dementia, vascular, with depression (4) Major depressive disorder, recurrent episode (5) Impulse control disorder ALIYAH RAMÍREZ MD Jan 29, 2017 19:51
[2017-01-29] MEDS: MIRTAZAPINE 7.5 MG TABLET. PO SCH (20:01)
[2017-01-29] MEDS: DONEPEZIL HCL 10 MG TABLET PO SCH (20:01)
[2017-01-29] MEDS: QUEtiapine 50 MG TABLET. PO SCH (20:01)
[2017-01-30 06:17] VITALS: BP 147/98
[2017-01-30] MEDS: SERTRALINE 50 MG TABLET. PO SCH (08:59)
[2017-01-30] MEDS: CETIRIZINE HCL 10 MG TABLET PO SCH (08:59)
[2017-01-30] MEDS: ACETAMINOPHEN 500 MG TABLET PO SCH ×2 (09:00→19:56)
[2017-01-30] MEDS: QUEtiapine 25 MG TABLET. PO SCH ×2 (09:01→14:21)
[2017-01-30] MEDS: MULTIVITAMIN I-VITE TABLET. PO SCH (09:01)
[2017-01-30] MEDS: BENZTROPINE MESYLATE 0.5 MG TABLET PO SCH ×2 (09:01→19:55)
[2017-01-30] MEDS: POLYVINYL ALCOHOL 1.4% OPHTH SOLUTION 15ML BOTTLE. OU SCH ×2 (09:05→19:56)
[2017-01-30] MEDS: amLODIPine BESYLATE 5 MG TABLET PO SCH (09:07)
[2017-01-30 15:50] VITALS: BP 159/96
[2017-01-30] MEDS: MIRTAZAPINE 7.5 MG TABLET. PO SCH (19:54)
[2017-01-30] MEDS: QUEtiapine 50 MG TABLET. PO SCH (19:55)
[2017-01-30] MEDS: DONEPEZIL HCL 10 MG TABLET PO SCH (19:55)
--- NOTE | 2017-01-30 20:03 | PDOC ---
Exam Note: Javier Note: Please also refer to the separate dictated note~for this date of service dictated separately.~Patient seen individually. Discussed the patient with Nursing staff reviewed the chart.~Reviewed interim history and current functioning. Reviewed vital signs,~Labs/ Radiology~and current medications noted below. Continue current treatment with the changes noted in the dictated addendum note Assessment: Vital Signs: Vital Signs Date Time Temp Pulse Resp B/P (MAP) Pulse Ox O2 Delivery O2 Flow Rate FiO2 01/30/17 15:50 97.1 82 16 159/96 (117) 93 01/28/17 06:15 Room Air I&O Intake and Output 01/30/17 07:00 Intake Total 600 ml Balance 600 ml Intake Oral 600 ml # Voids 1 Current Medications: Meds: Current Medications Acetaminophen (Tylenol) 650 mg PRN Q6HRS PRN PO PAIN / TEMP; Start 01/11/17 at 18:00 Al Hydroxide/Mg Hydroxide (Mylanta Plus Xs) 15 ml PRN AFTMEALHC PRN PO DYSPEPSIA; Start 01/11/17 at 18:00 Magnesium Hydroxide (Milk Of Magnesia) 2,400 mg PRN QHS PRN PO CONSTIPATION Last administered on 01/13/17 21:08; Start 01/11/17 at 18:00 Donepezil HCl (Aricept) 10 mg QHS PO Last administered on 01/30/17 19:55; Start 01/11/17 at 21:00 Citalopram Hydrobromide (CeleXA) 40 mg DAILY PO Last administered on 01/12/17 07:58; Start 01/12/17 at 09:00; Stop 01/12/17 at 11:45; Status DC Acetaminophen (Tylenol) 1,000 mg BID PO Last administered on 01/30/17 19:56; Start 01/11/17 at 21:00 Lisinopril (Prinivil) 5 mg QHS PO Last administered on 01/11/17 19:39; Start 01/11/17 at 21:00; Stop 01/12/17 at 17:09; Status DC Artificial Tears (Artificial Tears) 1 drop BID OU Last administered on 19:56; Start 01/11/17 at 21:00 Cetirizine HCl (ZyrTEC) 10 mg DAILY PO Last administered on 01/30/17 08:59; Start 01/12/17 at 09:00 Multivitamins/ Minerals (I-Robyn) 1 tab DAILY PO Last administered on 09:01; Start 01/12/17 at 09:00 Sertraline HCl (Zoloft) 50 mg DAILY PO Last administered on 01/20/17 09:20; Start 01/13/17 at 09:00; Stop 01/20/17 at 18:44; Status DC Mirtazapine (Remeron) 7.5 mg QHS PO Last administered on 01/30/17 19:54; Start 01/12/17 at 21:00 Cyanocobalamin (Vitamin B-12) 1,000 mcg WEEKLY IM Last administered on 08:49; Start 01/12/17 at 18:00 Amlodipine Besylate (Norvasc) 5 mg DAILY PO Last administered on 01/30/17 09: 07; Start 01/13/17 at 09:00 Olanzapine (ZyPREXA ZYDIS) 1.25 mg PRN Q2HR PRN PO PSYCHOSIS Last administered on 01/19/17 14:04; Start 01/13/17 at 17:00 Vitamin D (Vitamin D3) 50,000 unit WEEKLY PO ; Start 01/13/17 at 18:00; Stop 01/13/17 at 18:15; Status DC Vitamin D (Vitamin D3) 50,000 unit WEEKLY PO Last administered on 01/28/17 09 :15; Start 01/14/17 at 09:00 Quetiapine Fumarate (SEROquel) 25 mg QHS PO Last administered on 01/16/17 20: 57; Start 01/13/17 at 21:00; Stop 01/17/17 at 19:20; Status DC Benztropine Mesylate (Cogentin) 0.5 mg BID PO Last administered on 01/30/17 19:55; Start 01/13/17 at 21:00 Quetiapine Fumarate (SEROquel) 50 mg QHS PO Last administered on 01/30/17 19: 55; Start 01/17/17 at 21:00 Quetiapine Fumarate (SEROquel) 12.5 mg BID@0900,1400 PO Last administered on 14:21; Start 01/19/17 at 09:00 Sertraline HCl (Zoloft) 75 mg DAILY PO Last administered on 01/30/17 08:59; Start 01/21/17 at 09:00 Active Scripts Active Reported Preservision Areds Softgel (Vit A/Vit C/Vit E/Zinc/Copper) 1 Each Capsule 1 Each PO DAILY Fexofenadine Hcl 180 Mg Tablet 180 Mg PO DAILY Acetaminophen 500 Mg Tablet 1,000 Mg PO BID Lisinopril 5 Mg Tablet 5 Mg PO QHS Liquitears (Polyvinyl Alcohol) 15 Ml Drops 1 Drop OP BID Escitalopram Oxalate 20 Mg Tablet 20 Mg PO DAILY Donepezil Hcl 10 Mg Tablet 10 Mg PO QHS I have reviewed the current psychotropics carefully including drug interactions. Risk benefit ratio favors no change other than as noted in my dictated progress note. Diagnosis: Problems: (1) Anxiety disorder (2) Dementia, vascular, with delusions (3) Dementia, vascular, with depression (4) Major depressive disorder, recurrent episode (5) Impulse control disorder ALIYAH RAMÍREZ MD Jan 30, 2017 20:03
[2017-01-31] MEDS ORDERED: ACET325T9 PO (00:17)
[2017-01-31] MEDS ORDERED: BENZ0.5T PO (00:18)
[2017-01-31] MEDS ORDERED: CHOL500016 PO (00:19)
[2017-01-31] MEDS ORDERED: CYAN10002 IJ (00:22)
[2017-01-31] MEDS ORDERED: MAG30ORA2 PO (00:24)
[2017-01-31] MEDS ORDERED: MAGN2400 PO (00:25)
[2017-01-31] MEDS ORDERED: MIRT15TA3 PO (00:26)
[2017-01-31] MEDS ORDERED: QUET50TA5 PO (00:31)
[2017-01-31] MEDS ORDERED: OLAN5TAB5 PO (00:31)
[2017-01-31] MEDS ORDERED: QUET25TA5 PO (00:32)
[2017-01-31] MEDS ORDERED: SERT50TA PO (00:33)
[2017-01-31] MEDS ORDERED: AMLO5TAB2 PO (00:34)
[2017-01-31] MEDS ORDERED: VIT1TABL8 PO (03:35)
--- NOTE | 2017-01-31 04:05 | PN ---
DATE: 01/29/2017 This is a late entry, covers the elements not covered in my initial note of 01/29/2017. SUBJECTIVE: I met with the patient evening of 01/29/2017. The patient remains confused, anxious, but less irritable, less labile. She is not trying to undress, takes her medications, does have expressive aphasia, but seems less frustrating for her. REVIEW OF SYSTEMS: No CV, , pulmonary, eye, ENT system symptoms on review. Reliability poor. MENTAL STATUS EXAM: Oriented to herself. Insight, judgment, recent and remote memory, attention, concentration, fund of knowledge poor, consistent with her diagnosis as mentioned in my initial note. PLAN: Continue current psychotropics as mentioned in my initial note. Adjust further as clinically indicated. MAN Geni RAMÍREZ MD DR: ARIANA/chandana JOB#: [id number] / [id number]
[2017-01-31 06:09] VITALS: BP 154/94
--- NOTE | 2017-02-01 06:02 | PN ---
DATE: 01/30/2017 PSYCHIATRIC PROGRESS NOTE This late entry 01/30/2017 covers elements not covered in my initial note 01/30/2017. Met with the patient in the evening of 01/30/2017. The patient remains confused, slept 7 hours previous evening. Speech is word salad consequent to expressive aphasia. Cooperative with meds and cares. She smiles appropriately as I met with her. No CV, , pulmonary, eye, ENT system symptoms on review. Reliability poor. MENTAL STATUS EXAM: Oriented to herself. Insight, judgment, recent and remote memory, attention, concentration, fund of knowledge poor, consistent with her diagnosis mentioned in my initial note. PLAN: Continue current psychotropics mentioned in my initial note. The patient appears to be stabilizing and we will transition to a lower level of care in the next couple of days. MAN Geni RAMÍREZ MD DR: ARIANA/chandana JOB#: [id number] / [id number]
--- NOTE | 2017-02-01 18:37 | PDOC ---
Exam Note: Javier Note: Please also refer to the separate dictated note~for this date of service dictated separately.~Patient seen individually. Discussed the patient with Nursing staff reviewed the chart.~Reviewed interim history and current functioning. Reviewed vital signs,~Labs/ Radiology~and current medications noted below. Continue current treatment with the changes noted in the dictated addendum note Assessment: Vital Signs: Vital Signs Date Time Temp Pulse Resp B/P (MAP) Pulse Ox O2 Delivery O2 Flow Rate FiO2 01/31/17 06:09 97.4 72 20 154/94 (114) 96 01/28/17 06:15 Room Air I&O Intake and Output 02/01/17 07:00 Intake Total 320 ml Balance 320 ml Intake Oral 320 ml Current Medications: Meds: Current Medications Acetaminophen (Tylenol) 650 mg PRN Q6HRS PRN PO PAIN / TEMP; Start 01/11/17 at 18:00; Stop 01/31/17 at 09:04; Status DC Al Hydroxide/Mg Hydroxide (Mylanta Plus Xs) 15 ml PRN AFTMEALHC PRN PO DYSPEPSIA; Start 01/11/17 at 18:00; Stop 01/31/17 at 09:04; Status DC Magnesium Hydroxide (Milk Of Magnesia) 2,400 mg PRN QHS PRN PO CONSTIPATION Last administered on 01/13/17 21:08; Start 01/11/17 at 18:00; Stop 01/31/17 at 09:04; Status DC Donepezil HCl (Aricept) 10 mg QHS PO Last administered on 01/30/17 19:55; Start 01/11/17 at 21:00; Stop 01/31/17 at 09:04; Status DC Citalopram Hydrobromide (CeleXA) 40 mg DAILY PO Last administered on 01/12/17 07:58; Start 01/12/17 at 09:00; Stop 01/12/17 at 11:45; Status DC Acetaminophen (Tylenol) 1,000 mg BID PO Last administered on 01/30/17 19:56; Start 01/11/17 at 21:00; Stop 01/31/17 at 09:04; Status DC Lisinopril (Prinivil) 5 mg QHS PO Last administered on 01/11/17 19:39; Start 01/11/17 at 21:00; Stop 01/12/17 at 17:09; Status DC Artificial Tears (Artificial Tears) 1 drop BID OU Last administered on 19:56; Start 01/11/17 at 21:00; Stop 01/31/17 at 09:04; Status DC Cetirizine HCl (ZyrTEC) 10 mg DAILY PO Last administered on 01/30/17 08:59; Start 01/12/17 at 09:00; Stop 01/31/17 at 09:04; Status DC Multivitamins/ Minerals (I-Robyn) 1 tab DAILY PO Last administered on 09:01; Start 01/12/17 at 09:00; Stop 01/31/17 at 09:04; Status DC Sertraline HCl (Zoloft) 50 mg DAILY PO Last administered on 01/20/17 09:20; Start 01/13/17 at 09:00; Stop 01/20/17 at 18:44; Status DC Mirtazapine (Remeron) 7.5 mg QHS PO Last administered on 01/30/17 19:54; Start 01/12/17 at 21:00; Stop 01/31/17 at 09:04; Status DC Cyanocobalamin (Vitamin B-12) 1,000 mcg WEEKLY IM Last administered on 08:49; Start 01/12/17 at 18:00; Stop 01/31/17 at 09:04; Status DC Amlodipine Besylate (Norvasc) 5 mg DAILY PO Last administered on 01/30/17 09: 07; Start 01/13/17 at 09:00; Stop 01/31/17 at 09:04; Status DC Olanzapine (ZyPREXA ZYDIS) 1.25 mg PRN Q2HR PRN PO PSYCHOSIS Last administered on 01/19/17 14:04; Start 01/13/17 at 17:00; Stop 01/31/17 at 09:04; Status DC Vitamin D (Vitamin D3) 50,000 unit WEEKLY PO ; Start 01/13/17 at 18:00; Stop 01/13/17 at 18:15; Status DC Vitamin D (Vitamin D3) 50,000 unit WEEKLY PO Last administered on 01/28/17 09 :15; Start 01/14/17 at 09:00; Stop 01/31/17 at 09:04; Status DC Quetiapine Fumarate (SEROquel) 25 mg QHS PO Last administered on 01/16/17 20: 57; Start 01/13/17 at 21:00; Stop 01/17/17 at 19:20; Status DC Benztropine Mesylate (Cogentin) 0.5 mg BID PO Last administered on 01/30/17 19:55; Start 01/13/17 at 21:00; Stop 01/31/17 at 09:04; Status DC Quetiapine Fumarate (SEROquel) 50 mg QHS PO Last administered on 01/30/17 19: 55; Start 01/17/17 at 21:00; Stop 01/31/17 at 09:04; Status DC Quetiapine Fumarate (SEROquel) 12.5 mg BID@0900,1400 PO Last administered on 14:21; Start 01/19/17 at 09:00; Stop 01/31/17 at 09:04; Status DC Sertraline HCl (Zoloft) 75 mg DAILY PO Last administered on 01/30/17 08:59; Start 01/21/17 at 09:00; Stop 01/31/17 at 09:04; Status DC Active Scripts Active Reported I-Robyn Tablet (Vit A,C & E/Lutein/Minerals) 1 Each Tablet 1 Tab PO DAILY Amlodipine Besylate 5 Mg Tablet 5 Mg PO DAILY Zoloft (Sertraline Hcl) 50 Mg Tablet 75 Mg PO DAILY Seroquel (Quetiapine Fumarate) 25 Mg Tablet 12.5 Mg PO 0900,1400 Seroquel (Quetiapine Fumarate) 50 Mg Tablet 50 Mg PO QHS Zyprexa Zydis (Olanzapine) 5 Mg Tab.rapdis 1.25 Mg PO PRN Q2HR PRN Mirtazapine 15 Mg Tablet 7.5 Mg PO QHS Milk Of Magnesia (Magnesium Hydroxide) 2,400 Mg/10 Ml Oral.susp 2,400 Mg PO PRN QHS PRN Mag-Al Plus Xs Suspension (Mag Hydrox/Al Hydrox/Simeth) 30 Ml Oral.susp 15 Ml PO PRN AFTMEAL PRN Cyanocobalamin Injection (Cyanocobalamin (Vitamin B-12)) 1,000 Mcg/1 Ml Vial 1, 000 Mcg IJ QMONTH Vitamin D3 (Cholecalciferol (Vitamin D3)) 5,000 Unit Tablet 50,000 Unit PO WEEKLY Benztropine Mesylate 0.5 Mg Tablet 0.5 Mg PO BID Tylenol (Acetaminophen) 325 Mg Tablet 650 Mg PO PRN Q6HRS PRN Preservision Areds Softgel (Vit A/Vit C/Vit E/Zinc/Copper) 1 Each Capsule 1 Each PO DAILY Fexofenadine Hcl 180 Mg Tablet 180 Mg PO DAILY Acetaminophen 500 Mg Tablet 1,000 Mg PO BID MDD 4000 Lisinopril 5 Mg Tablet 5 Mg PO QHS Liquitears (Polyvinyl Alcohol) 15 Ml Drops 1 Drop OU BID Donepezil Hcl 10 Mg Tablet 10 Mg PO QHS I have reviewed the current psychotropics carefully including drug interactions. Risk benefit ratio favors no change other than as noted in my dictated progress note. Diagnosis: Problems: (1) Impulse control disorder (2) Major depressive disorder, recurrent episode (3) Dementia, vascular, with depression (4) Dementia, vascular, with delusions (5) Anxiety disorder ALIYAH RAMÍREZ MD Feb 01, 2017 18:37
--- NOTE | 2017-02-01 22:18 | DS ---
DATE OF DISCHARGE: 01/31/2017 REASON FOR ADMISSION: Please refer to the admission history for details. Briefly, the patient is a 76-year-old female referred to us from [facility] in [place], [place], by her primary care physician on account of increasing crying spells, getting angry, increased forgetfulness and suicidal ideation without a plan. The patient additionally has marked expressive aphasia and confusion with significant memory deficits worsening her mood symptoms. She had failed outpatient psychiatric interventions, referred for inpatient psychiatric stabilization. SIGNIFICANT FINDINGS AND CLINICAL COURSE: Following admission, the patient was seen daily individually by myself, followed medically per Dr. Bobby/Dr. Peterson. Initially, she was extremely labile, paranoid, suspicious, crying aggressive, had to be from the rest of the patient's on the unit. Adjustments were made in her psychotropics. She seemed to respond to a combination of Zoloft 75 mg a day, Remeron 7.5 mg at bedtime, Seroquel 12.5 mg b.i.d. and 50 mg at bedtime, Aricept 10 mg at bedtime, Zyprexa p.r.n., Cogentin 0.5 mg b.i.d. Gradually mood appeared to improve. She is less labile, still confused, but pleasant, cooperative, verbal, and interactive. CONDITION AT DISCHARGE: Improved prior to discharge, 01/31/2017. REVIEW OF SYSTEMS: No CV, , pulmonary, eye, ENT system symptoms on review. Reliability poor. MENTAL STATUS EXAM: Oriented to herself. Insight, judgment, recent and remote memory, attention, concentration, fund of knowledge poor, consistent with her diagnosis. FINAL DIAGNOSES: Major neurocognitive disorder, Alzheimer, vascular with depression, delusion, behavioral disturbance; anxiety disorder, unspecified; impulse control disorder, unspecified. Rest unchanged from admission. DISCHARGE MEDICATIONS: Please refer to the MRAD. DISCHARGE INSTRUCTIONS: Outpatient psychiatric and medical followup at the retirement. ALIYAH RAMÍREZ MD DR: ARIANA/chandana JOB#: [id number] / [id number]
== END 2017-01-31 09:00 | disposition home or self-care (01) | DRG 885 ==
LOC: ER 14:17 → GEROPSY 16:24
PROVIDERS: ADMIT Psychiatry & Neurology Psychiatry; ATTEND Psychiatry & Neurology Psychiatry
DX: F33.2 Major depressive disorder, recurrent severe without psychotic features (principal); F01.51 Vascular dementia, unspecified severity, with behavioral disturbance; G30.9 Alzheimer's disease, unspecified; R45.851 Suicidal ideations; F02.81 Dementia in other diseases classified elsewhere, unspecified severity, with behavioral disturbance; R47.01 Aphasia; D50.9 Iron deficiency anemia, unspecified; E53.8 Deficiency of other specified B group vitamins; E78.5 Hyperlipidemia, unspecified; F22 Delusional disorders; F41.9 Anxiety disorder, unspecified; F63.9 Impulse disorder, unspecified; G47.00 Insomnia, unspecified; I12.9 Hypertensive chronic kidney disease with stage 1 through stage 4 chronic kidney disease, or unspecified chronic kidney disease; N18.9 Chronic kidney disease, unspecified; R29.6 Repeated falls; Z66 Do not resuscitate; Z79.899 Other long term (current) drug therapy; Z88.8 Allergy status to other drugs, medicaments and biological substances; Z88.2 Allergy status to sulfonamides; Z91.83 Wandering in diseases classified elsewhere
CPT/HCPCS: 36415; 70450; 80053; 80061; 80307; 81001; 82306; 82550; 82607; 83036; 83540; 83550; 83735; 84436; 84443; 84480; 84484; 85025; 93005; G0480; J3420; 97110; 97116; 97530; 99285-25; G0479

== ENCOUNTER 2017-05-20 15:58 | Inpatient (IN) | payer MEDICARE ==
[~2017-05-20] VITALS: Ht 170.2 cm; Wt 64.6 kg
[~2017-05-20 15:58] MED LIST: ACET325T9 PO; ACET500T68 PO; AMLO5TAB2 PO; BENZ0.5T PO; CHOL500016 PO; CYAN10002 IJ; DONE10TA7 PO; ESCITALOPRAM OX20 MG PO; FEXO180T16 PO; LISI-338 PO; MAG30ORA2 PO; MAGN2400 PO; MIRT15TA3 PO; OLAN5TAB5 PO; POLY15DR28 OU; QUET25TA5 PO; QUET50TA5 PO; SERT50TA PO; VIT1CAPS12 PO; VIT1TABL8 PO
--- NOTE | 2017-05-20 16:24 | PHYS DOC ---
Past History Past Medical History: Anemia, Dementia, High Cholesterol, Hypertension, Other Past Surgical History: No Surgical History Alcohol Use: None Drug Use: None Adult General Chief Complaint Chief Complaint: Della psych clearance [facility] HPI Patient is a 76 year old female who presents with hallucinations. According the daughter brought her in for [facility] psych clearance and seeing people in the bedroom and hallucinating. Pt. has been uncooperative with her care providers. She states she's been admitted [facility] psych before for being combative. She states that she's not wanting to drink as much as normal. She denies that she's had any fevers chills nausea or vomiting or abdominal pain. Pt. has no complaints of suicidal or homicidal ideation. Patient has a history of significant dementia and anxiety. Patient does medical history of hypertension , elevated cholesterol, arthritis, ill insufficiency, CKD, insomnia, anxiety disorder, poor impulse control, vascular dementia, hx. expressive aphasia and behavior disorder. No hx of falls. Patient normally follows with Dr. David Navarro. Pt. a resident of [facility] in [place], [place]. Review of Systems Review of Systems Constitutional: Denies fever or chills [] Eyes: Denies change in visual acuity, redness, or eye pain [] HENT: Denies nasal congestion or sore throat [] Respiratory: Denies cough or shortness of breath [] Cardiovascular: No additional information not addressed in HPI [] GI: Denies abdominal pain, nausea, vomiting, bloody stools or diarrhea [] : Denies dysuria or hematuria [] Musculoskeletal: Denies back pain or joint pain [] Integument: Denies rash or skin lesions [] Neurologic: Denies headache, focal weakness or sensory changes [] Endocrine: Denies polyuria or polydipsia [] Pt. complaints of Hallucinations. All other systems were reviewed and found to be within normal limits, except as documented in this note. Family History Family History Not currently available Current Medications Current Medications See nursing for senior living medications Allergies Allergies Allergies Coded Allergies Type Severity Reaction Last Updated Verified NSAIDS (Non-Steroidal Anti-Inflamma Allergy Intermediate 01/12/17 Yes Sulfa (Sulfonamide Antibiotics) Allergy Intermediate 01/12/17 Yes Physical Exam Physical Exam Constitutional: , no acute distress, non-toxic appearance. [] HENT: Normocephalic, atraumatic, bilateral external ears normal, oropharynx moist, no oral exudates, nose normal. [] Eyes: PERRLA, EOMI, conjunctiva normal, no discharge. [] Neck: Normal range of motion, no tenderness, supple, no stridor. [] Cardiovascular: Bradycardia Heart rate regular rhythm, no murmur [] Lungs & Thorax: Bilateral breath sounds with apex on auscultation [] Abdomen: Bowel sounds normal, soft, no tenderness, no masses, no pulsatile masses. [] Skin: Warm, dry, no erythema, no rash. [] Back: No tenderness, no CVA tenderness. [] Extremities: No tenderness, no cyanosis, no clubbing, ROM intact, no edema, arthritic changes Neurologic: Alert and interactive, normal motor function, normal sensory function, no focal deficits noted. Occasional stuttering and unable to get her words out, occasional tongue thrusting motions EKG EKG My interpretation EKG shows a sinus rhythm at 63 bpm. There is a prolonged RI interval. But no findings acute STEMI with contralateral changes.[] Radiology/Procedures Radiology/Procedures [] Impressions: 1. Mental status change 2. Increased Hallucinations 3. Hx of increased Anxiety 4. Elevated Creat. and BUN Course & Med Decision Making Course & Med Decision Making Pertinent Labs and Imaging studies reviewed. (See chart for details) Labs pending at this time. Patient being checked out to Dr. Kuo for final disposition. Discussed presentation, testing and tx. plan with Dr. Peterson, will have follow up with Med. for elevated BUN and Creat. Admit to Dr. Quintin Lin [facility]. Dragon Disclaimer Dragon Disclaimer This electronic medical record was generated, in whole or in part, using a voice recognition dictation system. Departure Departure: Referrals: NON,STAFF (PCP) REBA BAUTISTA MD May 20, 2017 16:24 MELANIE KUO MD May 21, 2017 04:38
[2017-05-20 16:54] LABS: BASO # 0.1 x10^3/uL (0.0-0.2); BASO % 1 % (0-3); EOS # 0.1 x10^3/uL (0.0-0.7); EOS % 1 % (0-3); HEMATOCRIT 37.6 % (36.0-47.0); HEMOGLOBIN 12.9 g/dL (12.0-15.5); LYMPH # 1.3 x10^3/uL (1.0-4.8); LYMPH % 20 % (24-48); MEAN CORPUSCULAR HEMOGLOBIN 32 pg (25-35); MEAN CORPUSCULAR HGB CONC 34 g/dL (31-37); MEAN CORPUSCULAR VOLUME 93 fL (79-100); MONO # 0.4 x10^3/uL (0.0-1.1); MONO % 6 % (0-9); NEUT # 4.6 x10^3uL (1.8-7.7); NEUT % 72 % (31-73); PLATELET COUNT 309 x10^3/uL (140-400); RED BLOOD COUNT 4.03 x10^6/uL (3.50-5.40); RED CELL DISTRIBUTION WIDTH 12.5 % (11.5-14.5); WHITE BLOOD COUNT 6.5 x10^3/uL (4.0-11.0)
[2017-05-20] MEDS ORDERED: ONDA4TAB10 PO (16:58)
[2017-05-20] MEDS ORDERED: ALPR0.25 PO (16:58)
[2017-05-20 17:14] LABS: ALBUMIN/GLOBULIN RATIO 1.1 (1.0-1.7); CALCIUM 9.2 mg/dL (8.5-10.1); CREATININE 1.2 mg/dL (0.6-1.0); GFR 43.4; MAGNESIUM 2.1 mg/dL (1.8-2.4); POTASSIUM 4.1 mmol/L (3.5-5.1); TOTAL BILIRUBIN 0.5 mg/dL (0.2-1.0); TOTAL PROTEIN 7.5 g/dL (6.4-8.2)
[2017-05-20 19:03] LABS: BACTERIA,URINE FEW /HPF (0-FEW); BILIRUBIN,URINE NEG (NEG); CLARITY,URINE CLEAR; COLOR,URINE STRAW; GLUCOSE,URINE NEG (NEG); NITRITE,URINE NEG (NEG); SQUAMOUS EPITHELIAL CELL,UR OCC /LPF; UROBILINOGEN,URINE 0.2 mg/dL (0.2 mg/dL)
[2017-05-20] MEDS ORDERED: ONDANSETRON ODT 4 MG TAB.RAPDIS PO PRN (20:15)
[2017-05-20] MEDS ORDERED: ACETAMINOPHEN 325 MG TABLET PO PRN (20:15)
[2017-05-20] MEDS ORDERED: MAG HYDROX/AL HYDROX/SIMETH 30 ML ORAL.SUSP PO PRN (20:15)
[2017-05-20] MEDS ORDERED: MAGNESIUM HYDROXIDE 2,400 MG/30 ML ORAL.SUSP. PO PRN (20:30)
[2017-05-20] MEDS: DONEPEZIL HCL 10 MG TABLET PO SCH (21:39)
[2017-05-20] MEDS: BENZTROPINE MESYLATE 0.5 MG TABLET PO SCH (21:39)
[2017-05-20] MEDS: QUEtiapine 50 MG TABLET. PO SCH (21:39)
[2017-05-20] MEDS: LISINOPRIL 5 MG TABLET. PO SCH (21:39)
[2017-05-20] MEDS: MIRTAZAPINE 15 MG TABLET PO SCH (21:39)
[2017-05-20] MEDS: ACETAMINOPHEN 500 MG TABLET PO SCH (21:39)
--- NOTE | 2017-05-20 22:21 | EKG ---
[address] [address] Test Date: 2017-05-20 Test Time: 19:08:51 Pat Name: MERRY HERNANDEZ Department: Room: [address] [place] [address] Gender: F [employer] Engineer: SHAUN : 1940 Requested By: MELANIE GAMBINO Order Number: [id number] Reading MD: Abner Carrasco MD Measurements Intervals [place] Rate: 63 P: 42 IN: 232 QRS: 17 QRSD: 70 T: 42 QT: 392 QTc: 404 Interpretive Statements SINUS RHYTHM 1ST DEGREE AVB Electronically Signed On 06-07-2017 11:20:23 CDT by Abner Carrasco MD
[2017-05-20] MEDS: ALPRAZolam 0.25 MG TABLET PO PRN (22:22)
--- NOTE | 2017-05-20 22:57 | PDOC ---
Exam Note: Javier Note: Please also refer to the separate dictated note~for this date of service dictated separately.~Patient seen individually. Discussed the patient with Nursing staff reviewed the chart.~Reviewed interim history and current functioning. Reviewed vital signs,~Labs/ Radiology~and current medications noted below. Continue current treatment with the changes noted in the dictated addendum note Assessment: Vital Signs: Vital Signs Date Time Temp Pulse Resp B/P (MAP) Pulse Ox O2 Delivery O2 Flow Rate FiO2 05/20/17 21:39 70 138/86 05/20/17 19:20 97.8 20 98 Room Air Labs: Laboratory Tests Test 05/20/17 16:30 05/20/17 18:28 White Blood Count 6.5 x10^3/uL (4.0-11.0) Red Blood Count 4.03 x10^6/uL (3.50-5.40) Hemoglobin 12.9 g/dL (12.0-15.5) Hematocrit 37.6 % (36.0-47.0) Mean Corpuscular Volume 93 fL (79-100) Mean Corpuscular Hemoglobin 32 pg (25-35) Mean Corpuscular Hemoglobin Concent 34 g/dL (31-37) Red Cell Distribution Width 12.5 % (11.5-14.5) Platelet Count 309 x10^3/uL (140-400) Neutrophils (%) (Auto) 72 % (31-73) Lymphocytes (%) (Auto) 20 % (24-48) L Monocytes (%) (Auto) 6 % (0-9) Eosinophils (%) (Auto) 1 % (0-3) Basophils (%) (Auto) 1 % (0-3) Neutrophils # (Auto) 4.6 x10^3uL (1.8-7.7) Lymphocytes # (Auto) 1.3 x10^3/uL (1.0-4.8) Monocytes # (Auto) 0.4 x10^3/uL (0.0-1.1) Eosinophils # (Auto) 0.1 x10^3/uL (0.0-0.7) Basophils # (Auto) 0.1 x10^3/uL (0.0-0.2) Sodium Level 144 mmol/L (136-145) Potassium Level 4.1 mmol/L (3.5-5.1) Chloride Level 106 mmol/L (98-107) Carbon Dioxide Level 26 mmol/L (21-32) Anion Gap 12 (6-14) Blood Urea Nitrogen 25 mg/dL (7-20) H Creatinine 1.2 mg/dL (0.6-1.0) H Estimated GFR (Cockcroft-Gault) 43.4 BUN/Creatinine Ratio 21 (6-20) H Glucose Level 94 mg/dL (70-99) Calcium Level 9.2 mg/dL (8.5-10.1) Magnesium Level 2.1 mg/dL (1.8-2.4) Total Bilirubin 0.5 mg/dL (0.2-1.0) Aspartate Amino Transferase (AST) 10 U/L (15-37) L Alanine Aminotransferase (ALT) 16 U/L (14-59) Alkaline Phosphatase 75 U/L (46-116) Total Protein 7.5 g/dL (6.4-8.2) Albumin 4.0 g/dL (3.4-5.0) Albumin/Globulin Ratio 1.1 (1.0-1.7) Urine Collection Type Unknown Urine Color Straw Urine Clarity Clear Urine pH 5.5 Urine Specific [place] <=1.005 Urine Protein Neg (NEG-TRACE) Urine Glucose (UA) Neg mg/dL (NEG) Urine Ketones (Stick) Neg mg/dL (NEG) Urine Blood Trace (NEG) Urine Nitrite Neg (NEG) Urine Bilirubin Neg (NEG) Urine Urobilinogen Dipstick 0.2 mg/dL (0.2 mg/dL) Urine Leukocyte Esterase Neg (NEG) Urine RBC 1-2 /HPF (0-2) Urine WBC 1-4 /HPF (0-4) Urine Squamous Epithelial Cells Occ /LPF Urine Bacteria Few /HPF (0-FEW) Urine Mucus Slight /LPF Current Medications: Meds: Current Medications Alprazolam (Xanax) 0.25 mg PRN DAILY PRN PO ANXIETY / AGITATION Last administered on 05/20/17at 22:22; Start 05/20/17 at 20:15 Benztropine Mesylate (Cogentin) 0.5 mg BID PO Last administered on 05/20/17at 21 :39; Start 05/20/17 at 21:00 Donepezil HCl (Aricept) 10 mg QHS PO Last administered on 05/20/17at 21:39; Start 05/20/17 at 21:00 Mirtazapine (Remeron) 15 mg QHS PO Last administered on 05/20/17at 21:39; Start 05/20/17 at 21:00 Quetiapine Fumarate (SEROquel) 50 mg QHS PO Last administered on 05/20/17at 21: 39; Start 05/20/17 at 21:00 Sertraline HCl (Zoloft) 75 mg DAILY PO ; Start 05/21/17 at 09:00 Acetaminophen (Tylenol) 1,000 mg BID PO Last administered on 05/20/17at 21:39; Start 05/20/17 at 21:00 Acetaminophen (Tylenol) 650 mg PRN Q6HRS PRN PO PAIN / TEMP; Start 05/20/17 at 20:15 Amlodipine Besylate (Norvasc) 5 mg DAILY PO ; Start 05/21/17 at 09:00 Cyanocobalamin (Vitamin B-12) 1,000 mcg QMONTH IM ; Start 06/19/17 at 09:00 Lisinopril (Prinivil) 5 mg QHS PO Last administered on 05/20/17at 21:39; Start 05/20/17 at 21:00 Al Hydroxide/Mg Hydroxide (Mylanta Plus Xs) 15 ml PRN AFTMEAL PRN PO DYSPEPSIA ; Start 05/20/17 at 20:15 Ondansetron HCl (Zofran Odt) 4 mg PRN Q6HRS PRN PO NAUSEA/VOMITING; Start 05/20 at 20:15 Artificial Tears (Artificial Tears) 1 drop BID OU ; Start 05/21/17 at 09:00 Multivitamins/ Minerals (I-Robyn) 1 tab DAILY PO ; Start 05/21/17 at 09:00 Vitamin D (Vitamin D3) 50,000 unit WEEKLY PO ; Start 05/27/17 at 09:00 Cetirizine HCl (ZyrTEC) 10 mg DAILY PO ; Start 05/21/17 at 09:00 Magnesium Hydroxide (Milk Of Magnesia) 2,400 mg PRN QHS PRN PO CONSTIPATION; Start 05/20/17 at 20:30 Non-Formulary Medication (Vit A/Vit C/Vit E/Zinc/Copper (Preservision Areds Softgel)) 1 cap DAILY PO ; Start 05/21/17 at 09:00; Status UNV Active Scripts Active Reported Xanax (Alprazolam) 0.25 Mg Tablet 0.25 Mg PO PRN DAILY PRN Zofran Odt (Ondansetron) 4 Mg Tab.rapdis 4 Mg PO PRN Q6HRS PRN I-Robyn Tablet (Vit A,C & E/Lutein/Minerals) 1 Each Tablet 1 Tab PO DAILY Amlodipine Besylate 5 Mg Tablet 5 Mg PO DAILY Zoloft (Sertraline Hcl) 50 Mg Tablet 75 Mg PO DAILY Seroquel (Quetiapine Fumarate) 50 Mg Tablet 50 Mg PO QHS Mirtazapine 15 Mg Tablet 15 Mg PO QHS Milk Of Magnesia (Magnesium Hydroxide) 2,400 Mg/10 Ml Oral.susp 2,400 Mg PO PRN QHS PRN Mag-Al Plus Xs Suspension (Mag Hydrox/Al Hydrox/Simeth) 30 Ml Oral.susp 15 Ml PO PRN AFTMEAL PRN Cyanocobalamin Injection (Cyanocobalamin (Vitamin B-12)) 1,000 Mcg/1 Ml Vial 1, 000 Mcg IJ QMONTH Vitamin D3 (Cholecalciferol (Vitamin D3)) 5,000 Unit Tablet 50,000 Unit PO WEEKLY Benztropine Mesylate 0.5 Mg Tablet 0.5 Mg PO BID Tylenol (Acetaminophen) 325 Mg Tablet 650 Mg PO PRN Q6HRS PRN Preservision Areds Softgel (Vit A/Vit C/Vit E/Zinc/Copper) 1 Each Capsule 1 Cap PO DAILY Fexofenadine Hcl 180 Mg Tablet 180 Mg PO DAILY Acetaminophen 500 Mg Tablet 1,000 Mg PO BID MDD 4000 Lisinopril 5 Mg Tablet 5 Mg PO QHS Liquitears (Polyvinyl Alcohol) 15 Ml Drops 1 Drop OU BID Donepezil Hcl 10 Mg Tablet 10 Mg PO QHS I have reviewed the current psychotropics carefully including drug interactions. Risk benefit ratio favors no change other than as noted in my dictated progress note. Diagnosis: Problems: (1) Anxiety disorder (2) Dementia, vascular, with delusions (3) Dementia, vascular, with depression (4) Major depressive disorder, recurrent episode (5) Impulse control disorder ALIYAH RAMÍREZ MD May 20, 2017 22:57
[2017-05-21 01:05] VITALS: BP 145/88
[2017-05-21 06:13] VITALS: BP 131/77
[2017-05-21] MEDS: MULTIVITAMIN I-VITE TABLET. PO SCH (08:20)
[2017-05-21] MEDS: ACETAMINOPHEN 500 MG TABLET PO SCH ×2 (08:20→19:43)
[2017-05-21] MEDS: SERTRALINE 50 MG TABLET. PO SCH (08:20)
[2017-05-21] MEDS: CETIRIZINE HCL 10 MG TABLET PO SCH (08:20)
[2017-05-21] MEDS: BENZTROPINE MESYLATE 0.5 MG TABLET PO SCH ×2 (08:20→19:43)
[2017-05-21] MEDS: POLYVINYL ALCOHOL 1.4% OPHTH SOLUTION 15ML BOTTLE. OU SCH ×2 (08:21→19:45)
[2017-05-21] MEDS: amLODIPine BESYLATE 5 MG TABLET PO SCH (08:21)
[2017-05-21] MEDS ORDERED: COPPER PO SCH (09:00)
[2017-05-21] MEDS ORDERED: VIT C PO SCH (09:00)
[2017-05-21] MEDS ORDERED: VIT A PO SCH (09:00)
[2017-05-21] MEDS ORDERED: VIT E PO SCH (09:00)
[2017-05-21] MEDS ORDERED: ZINC PO SCH (09:00)
[2017-05-21 11:02] LABS: THYROID STIM HORMONE (TSH) 2.86 uIU/mL (0.358-3.740)
[2017-05-21] MEDS: ALPRAZolam 0.25 MG TABLET PO PRN (13:44)
[2017-05-21 15:08] LABS: T3 TOTAL 84 ng/dL (71-180); THYROXINE 4.7 ug/dL (4.5-12.0)
[2017-05-21 16:14] VITALS: BP 148/91
[2017-05-21] MEDS: QUEtiapine 50 MG TABLET. PO SCH (19:43)
[2017-05-21] MEDS: DONEPEZIL HCL 10 MG TABLET PO SCH (19:43)
[2017-05-21] MEDS: MIRTAZAPINE 15 MG TABLET PO SCH (19:43)
[2017-05-21] MEDS: LISINOPRIL 5 MG TABLET. PO SCH (19:44)
[2017-05-21] MEDS: ATORVASTATIN CALCIUM 10 MG TABLET. PO SCH (19:45)
--- NOTE | 2017-05-21 20:12 | PDOC ---
Exam Note: Javier Note: Please also refer to the separate dictated note~for this date of service dictated separately.~Patient seen individually. Discussed the patient with Nursing staff reviewed the chart.~Reviewed interim history and current functioning. Reviewed vital signs,~Labs/ Radiology~and current medications noted below. Continue current treatment with the changes noted in the dictated addendum note Assessment: Vital Signs: Vital Signs Date Time Temp Pulse Resp B/P (MAP) Pulse Ox O2 Delivery O2 Flow Rate FiO2 05/21/17 19:44 100 148/91 05/21/17 16:14 97.1 18 95 05/20/17 19:20 Room Air I&O Intake and Output 05/21/17 07:00 Intake Total 120 ml Balance 120 ml Intake Oral 120 ml Current Medications: Meds: Current Medications Alprazolam (Xanax) 0.25 mg PRN DAILY PRN PO ANXIETY / AGITATION Last administered on 05/21/17at 13:44; Start 05/20/17 at 20:15 Benztropine Mesylate (Cogentin) 0.5 mg BID PO Last administered on 05/21/17 19 :43; Start 05/20/17 at 21:00 Donepezil HCl (Aricept) 10 mg QHS PO Last administered on 05/21/17 19:43; Start 05/20/17 at 21:00 Mirtazapine (Remeron) 15 mg QHS PO Last administered on 05/21/17 19:43; Start 05/20/17 at 21:00 Quetiapine Fumarate (SEROquel) 50 mg QHS PO Last administered on 05/21/17 19: 43; Start 05/20/17 at 21:00 Sertraline HCl (Zoloft) 75 mg DAILY PO Last administered on 05/21/17 08:20; Start 05/21/17 at 09:00 Acetaminophen (Tylenol) 1,000 mg BID PO Last administered on 05/21/17 19:43; Start 05/20/17 at 21:00 Acetaminophen (Tylenol) 650 mg PRN Q6HRS PRN PO PAIN / TEMP; Start 05/20/17 at 20:15 Amlodipine Besylate (Norvasc) 5 mg DAILY PO Last administered on 05/21/17at 08: 21; Start 05/21/17 at 09:00 Cyanocobalamin (Vitamin B-12) 1,000 mcg QMONTH IM ; Start 06/19/17 at 09:00 Lisinopril (Prinivil) 5 mg QHS PO Last administered on 05/21/17at 19:44; Start 05/20/17 at 21:00 Al Hydroxide/Mg Hydroxide (Mylanta Plus Xs) 15 ml PRN AFTMEAL PRN PO DYSPEPSIA ; Start 05/20/17 at 20:15 Ondansetron HCl (Zofran Odt) 4 mg PRN Q6HRS PRN PO NAUSEA/VOMITING; Start 05/20 at 20:15 Artificial Tears (Artificial Tears) 1 drop BID OU Last administered on 19:45; Start 05/21/17 at 09:00 Multivitamins/ Minerals (I-Robyn) 1 tab DAILY PO Last administered on 05/21/17at 08:20; Start 05/21/17 at 09:00 Vitamin D (Vitamin D3) 50,000 unit WEEKLY PO ; Start 05/27/17 at 09:00 Cetirizine HCl (ZyrTEC) 10 mg DAILY PO Last administered on 05/21/17at 08:20; Start 05/21/17 at 09:00 Magnesium Hydroxide (Milk Of Magnesia) 2,400 mg PRN QHS PRN PO CONSTIPATION; Start 05/20/17 at 20:30 Non-Formulary Medication (Vit A/Vit C/Vit E/Zinc/Copper (Preservision Areds Softgel)) 1 cap DAILY PO ; Start 05/21/17 at 09:00; Status UNV Atorvastatin Calcium (Lipitor) 10 mg QHS PO Last administered on 05/21/17at 19: 45; Start 05/21/17 at 21:00 Active Scripts Active Reported Xanax (Alprazolam) 0.25 Mg Tablet 0.25 Mg PO PRN DAILY PRN Zofran Odt (Ondansetron) 4 Mg Tab.rapdis 4 Mg PO PRN Q6HRS PRN I-Robyn Tablet (Vit A,C & E/Lutein/Minerals) 1 Each Tablet 1 Tab PO DAILY Amlodipine Besylate 5 Mg Tablet 5 Mg PO DAILY Zoloft (Sertraline Hcl) 50 Mg Tablet 75 Mg PO DAILY Seroquel (Quetiapine Fumarate) 50 Mg Tablet 50 Mg PO QHS Mirtazapine 15 Mg Tablet 15 Mg PO QHS Milk Of Magnesia (Magnesium Hydroxide) 2,400 Mg/10 Ml Oral.susp 2,400 Mg PO PRN QHS PRN Mag-Al Plus Xs Suspension (Mag Hydrox/Al Hydrox/Simeth) 30 Ml Oral.susp 15 Ml PO PRN AFTMEAL PRN Cyanocobalamin Injection (Cyanocobalamin (Vitamin B-12)) 1,000 Mcg/1 Ml Vial 1, 000 Mcg IJ QMONTH Vitamin D3 (Cholecalciferol (Vitamin D3)) 5,000 Unit Tablet 50,000 Unit PO WEEKLY Benztropine Mesylate 0.5 Mg Tablet 0.5 Mg PO BID Tylenol (Acetaminophen) 325 Mg Tablet 650 Mg PO PRN Q6HRS PRN Preservision Areds Softgel (Vit A/Vit C/Vit E/Zinc/Copper) 1 Each Capsule 1 Cap PO DAILY Fexofenadine Hcl 180 Mg Tablet 180 Mg PO DAILY Acetaminophen 500 Mg Tablet 1,000 Mg PO BID MDD 4000 Lisinopril 5 Mg Tablet 5 Mg PO QHS Liquitears (Polyvinyl Alcohol) 15 Ml Drops 1 Drop OU BID Donepezil Hcl 10 Mg Tablet 10 Mg PO QHS I have reviewed the current psychotropics carefully including drug interactions. Risk benefit ratio favors no change other than as noted in my dictated progress note. Diagnosis: Problems: (1) Impulse control disorder (2) Major depressive disorder, recurrent episode (3) Dementia, vascular, with depression (4) Dementia, vascular, with delusions (5) Anxiety disorder ALIYAH RAMÍREZ MD May 21, 2017 20:12
--- NOTE | 2017-05-22 00:14 | CONS ---
DATE OF CONSULTATION: 05/20/2017 REASON FOR CONSULTATION: Medical management. HISTORY OF PRESENT ILLNESS: The patient is a 76-year-old female patient, a resident at [facility] in [place], who was brought by her daughter to be admitted to the [facility] on the account of seeing people in her bedroom and hallucinating. She apparently has been cooperative with her care providers, combative, not wanting to drink much as normal. She denies, however, any other complaint. In particular, she denied any suicidal or homicidal ideation. She apparently was admitted here before in October 2016. PAST MEDICAL HISTORY: Significant for hypertension, hyperlipidemia, chronic renal insufficiency, iron deficiency, vitamin D deficiency. She is also known to have dementia and aphasia. PAST SURGICAL HISTORY: Unremarkable. ALLERGIES: She is allergic to NONSTEROIDAL ANTI-INFLAMMATORY MEDICATION as well as SULFA DRUGS. MEDICATIONS: She is currently on the following medications: She is on acetaminophen 1000 mg twice a day and acetaminophen 650 mg every 6 hours as needed, alprazolam 0.5 mg daily, amlodipine besylate 5 mg once a day, benztropine mesylate 0.5 mg twice a day, vitamin D3 50,000 units once a week, cyanocobalamin 1000 mcg in 1 mL intramuscular every month, Aricept 10 mg once a day at bedtime, fexofenadine 180 mg once a day, lisinopril 5 mg at bedtime. She is on Mylanta 15 mL after meals and as needed, milk of magnesia 30 mL p.o. daily p.r.n. for constipation, mirtazapine 15 mg at bedtime, ondansetron 4 mg every 6 hours as needed for nausea and vomiting, polyvinyl alcohol or liquid tears 1 drop to both eyes twice a day, quetiapine fumarate or Seroquel 50 mg at bedtime, sertraline 75 mg daily. She is on multivitamin with mineral 1 tablet once a day. FAMILY HISTORY: Unremarkable. SOCIAL HISTORY: She is a resident at [facility] in [place], [place]. She does not smoke, drinks alcohol, or use any recreational drugs. REVIEW OF SYSTEMS: Unobtainable. The patient has expressive aphasia and has difficulty finding words. PHYSICAL EXAMINATION: GENERAL: When I examined her today, she was sitting comfortably in her chair in no apparent respiratory distress, slightly pale, but not jaundiced or cyanosed from thyromegaly. No jugular venous distension. No limb edema. VITAL SIGNS: Her heart rate was 100, blood pressure was 148/90, temperature was 97.1, respiratory rate 18, and oxygen saturation was 95% on room air. HEAD, EYES, EARS, NOSE, AND THROAT: She is normocephalic, atraumatic. NECK: Supple. HEART: Showed normal first and second heart sounds with no gallop, rub, or murmur. CHEST: Clear to auscultation. No crepitation or rhonchi. ABDOMEN: Slightly distended, soft, nontender. NEUROLOGIC: She is demented without any lateralizing sign. All her cranial nerves intact. She moves extremities without difficulty. She ambulates without assistance or assistive devices. LABORATORY DATA: As of this morning showed a white cell count of 6500, hemoglobin 13, hematocrit 38, MCV 93, and platelet count 309,000. Her chemistry showed a serum sodium of 144, potassium 4.1, chloride 106, bicarbonate 26, anion gap 12, BUN 25, creatinine 1.2. Estimated GFR was 43 mL per minute. Her glucose was 94. Calcium was 9.2, magnesium 2.1. Her serum iron was 49, TIBC was 293, percent saturation was 17%. Her total bilirubin, AST, ALT, alkaline phosphatase were normal. Total protein 7.5, albumin 4. Serum triglycerides were 177, total cholesterol 240, LDL was 149, VLDL was 35, and HDL cholesterol of 56, the ratio was 4. TSH was 2.860, total T4 was 4.7 and total T3 was 84. Her urinalysis was essentially unremarkable and was negative for nitrite and leukocyte esterase, and there was only 1-2 rbc's, 1-4 wbc's, and no bacteria. Her RPR is still pending. IMPRESSION: In summary, this is a 76-year-old female patient here on the account of increasing confusion and hallucination. She also has been uncooperative with care, refusing to eat or drink, refusing to have a bath, but denied any other problems including nausea, vomiting or abdominal pain. She denied any suicidal or homicidal ideation and she is here. All of these in a background of dementia and anxiety and she is here for inpatient psychiatric stabilization. All in all, she seemed to be medically stable. All her vital signs are within acceptable range. Her lab works are also within normal range. She does have slightly impaired kidney function with estimated GFR of 43 that has been there before. Her lipid panel showed that her cholesterol is suboptimally controlled, but her thyroid function, liver enzymes are all within normal range as well as her white cell count, hemoglobin, hematocrit and platelets. I will definitely continue with all her medication. I will review any labs that are still pending and make any necessary recommendation. Thank you, Dr. Ribeiro, for allowing me to participate in the care of this patient. ELIANE ENGLISH MD DR: BAILEY/chandana JOB#: [id number] / [id number]
[2017-05-22 06:30] VITALS: BP 137/89
[2017-05-22 09:10] LABS: HEMOGLOBIN A1C 5.1 % (4.8-5.6)
[2017-05-22] MEDS: ACETAMINOPHEN 500 MG TABLET PO SCH ×2 (09:40→19:39)
[2017-05-22] MEDS: amLODIPine BESYLATE 5 MG TABLET PO SCH (09:40)
[2017-05-22] MEDS: MULTIVITAMIN I-VITE TABLET. PO SCH (09:40)
[2017-05-22] MEDS: BENZTROPINE MESYLATE 0.5 MG TABLET PO SCH ×2 (09:41→19:39)
[2017-05-22] MEDS: CETIRIZINE HCL 10 MG TABLET PO SCH (09:41)
[2017-05-22] MEDS: SERTRALINE 50 MG TABLET. PO SCH (09:41)
[2017-05-22] MEDS: POLYVINYL ALCOHOL 1.4% OPHTH SOLUTION 15ML BOTTLE. OU SCH ×2 (09:41→19:40)
--- NOTE | 2017-05-22 12:40 | HP ---
ADMIT DATE: 05/20/2017 DATE OF SERVICE: 05/21/2017 Covers elements not covered in my initial note of 05/21/2017. IDENTIFYING DATA: The patient is a 76-year-old female referred back to us from [facility] in [place], [place] by Dr. David Bradford, her primary care physician, on account of recent onset of visual hallucinations, believing that she was "feeling the presence of a man in her room." Reportedly, the patient went to the back next door and asked to go down in the room below to save the kids. She is increasingly psychotic, having sleep and appetite changes, had failed outpatient psychiatric interventions resulting in this referral for inpatient psychiatric stabilization. CHIEF COMPLAINT: "I'm okay." The patient is confused, wandering, quite delusional as I met with her the evening of 05/21/2017. HISTORY OF PRESENT ILLNESS: The patient has a history of major depressive disorder with psychotic features and more recently has been getting increasingly psychotic and depressed. Her Xanax and Seroquel that she was stabilized on during her last hospitalization here in January 2017 have since been discontinued at the alf as has the Zoloft and all of her delusions and psychotic symptoms seem to have resurfaced. She is having sleep and appetite changes. No active suicidal or homicidal ideation. No clear history of bipolar disorder. PAST PSYCHIATRIC HISTORY: As above. MEDICAL HISTORY: Hypertension, iron-deficiency anemia, arthritis, renal insufficiency, chronic kidney disease, and aphasia. DIET: Regular, thin liquids. CODE STATUS: DNR. ALLERGIES: NONSTEROIDAL ANTI-INFLAMMATORY and SULFA. FAMILY HISTORY: Noncontributory. SOCIAL HISTORY: The patient resides at the [facility] in [place], [place]. No alcohol or drug abuse, physical, sexual or elder abuse history is noted. Not known to be a perpetrator. MENTAL STATUS EXAMINATION: The patient was seen individually evening of 05/21/2017. She is oriented to herself, ambulating up and down the hallway, oblivious of her surroundings, quite confused. Insight, judgment, recent and remote memory, attention, concentration, fund of knowledge poor, consistent with her diagnosis. REVIEW OF SYSTEMS: No CV, , pulmonary, eye system symptoms on review. Reliability poor. ASSETS: Supportive living at the above facility. IMPRESSION: Major neurocognitive disorder, Alzheimer, vascular with depression, delusion, behavioral disturbance; history of major depressive disorder with psychotic features; anxiety disorder, unspecified; impulse control disorder, unspecified. Rest as above. PLAN: Admit to geropsychiatry unit at [facility]. I will see the patient daily individually from a psychiatric standpoint. Medical followup per Dr. Bobby/Dr. Peterson. Restart patient on some trazodone at bedtime p.r.n. insomnia and Xanax p.r.n. for anxiety, consider restarting Seroquel after baseline assessment. MAN Geni RAMÍREZ MD DR: ARIANA/chandana JOB#: [id number] / [id number]
[2017-05-22 15:24] VITALS: BP 128/81
[2017-05-22] MEDS: ATORVASTATIN CALCIUM 10 MG TABLET. PO SCH (19:39)
[2017-05-22] MEDS: MIRTAZAPINE 15 MG TABLET PO SCH (19:39)
[2017-05-22] MEDS: QUEtiapine 50 MG TABLET. PO SCH (19:39)
[2017-05-22] MEDS: LISINOPRIL 5 MG TABLET. PO SCH (19:39)
[2017-05-22] MEDS: DONEPEZIL HCL 10 MG TABLET PO SCH (19:39)
--- NOTE | 2017-05-22 21:04 | PDOC ---
Exam Note: Javier Note: Please also refer to the separate dictated note~for this date of service dictated separately.~Patient seen individually. Discussed the patient with Nursing staff reviewed the chart.~Reviewed interim history and current functioning. Reviewed vital signs,~Labs/ Radiology~and current medications noted below. Continue current treatment with the changes noted in the dictated addendum note Assessment: Vital Signs: Vital Signs Date Time Temp Pulse Resp B/P (MAP) Pulse Ox O2 Delivery O2 Flow Rate FiO2 05/22/17 19:39 77 128/81 05/22/17 15:24 97.9 18 97 Room Air I&O Intake and Output 05/22/17 07:00 Intake Total 1320 ml Balance 1320 ml Intake Oral 1320 ml Current Medications: Meds: Current Medications Alprazolam (Xanax) 0.25 mg PRN DAILY PRN PO ANXIETY / AGITATION Last administered on 05/21/17at 13:44; Start 05/20/17 at 20:15 Benztropine Mesylate (Cogentin) 0.5 mg BID PO Last administered on 05/22/17 19 :39; Start 05/20/17 at 21:00 Donepezil HCl (Aricept) 10 mg QHS PO Last administered on 05/22/17 19:39; Start 05/20/17 at 21:00 Mirtazapine (Remeron) 15 mg QHS PO Last administered on 05/22/17 19:39; Start 05/20/17 at 21:00 Quetiapine Fumarate (SEROquel) 50 mg QHS PO Last administered on 05/22/17at 19: 39; Start 05/20/17 at 21:00 Sertraline HCl (Zoloft) 75 mg DAILY PO Last administered on 05/22/17 09:41; Start 05/21/17 at 09:00 Acetaminophen (Tylenol) 1,000 mg BID PO Last administered on 05/22/17 19:39; Start 05/20/17 at 21:00 Acetaminophen (Tylenol) 650 mg PRN Q6HRS PRN PO PAIN / TEMP; Start 05/20/17 at 20:15 Amlodipine Besylate (Norvasc) 5 mg DAILY PO Last administered on 05/22/17at 09: 40; Start 05/21/17 at 09:00 Cyanocobalamin (Vitamin B-12) 1,000 mcg QMONTH IM ; Start 06/19/17 at 09:00 Lisinopril (Prinivil) 5 mg QHS PO Last administered on 05/22/17at 19:39; Start 05/20/17 at 21:00 Al Hydroxide/Mg Hydroxide (Mylanta Plus Xs) 15 ml PRN AFTMEAL PRN PO DYSPEPSIA ; Start 05/20/17 at 20:15 Ondansetron HCl (Zofran Odt) 4 mg PRN Q6HRS PRN PO NAUSEA/VOMITING; Start 05/20 at 20:15 Artificial Tears (Artificial Tears) 1 drop BID OU Last administered on 19:40; Start 05/21/17 at 09:00 Multivitamins/ Minerals (I-Robyn) 1 tab DAILY PO Last administered on 05/22/17at 09:40; Start 05/21/17 at 09:00 Vitamin D (Vitamin D3) 50,000 unit WEEKLY PO ; Start 05/27/17 at 09:00 Cetirizine HCl (ZyrTEC) 10 mg DAILY PO Last administered on 05/22/17at 09:41; Start 05/21/17 at 09:00 Magnesium Hydroxide (Milk Of Magnesia) 2,400 mg PRN QHS PRN PO CONSTIPATION; Start 05/20/17 at 20:30 Non-Formulary Medication (Vit A/Vit C/Vit E/Zinc/Copper (Preservision Areds Softgel)) 1 cap DAILY PO ; Start 05/21/17 at 09:00; Status UNV Atorvastatin Calcium (Lipitor) 10 mg QHS PO Last administered on 05/22/17at 19: 39; Start 05/21/17 at 21:00 Trazodone HCl (Desyrel) 50 mg PRN QHS PRN PO INSOMNIA, MAY REPEAT X1; Start at 23:15 Olanzapine (ZyPREXA ZYDIS) 1.25 mg PRN Q2HR PRN PO Psych; Start 05/21/17 at 23: 15 Quetiapine Fumarate (SEROquel) 12.5 mg BID@0900,1300 PO ; Start 05/23/17 at 09: 00 Active Scripts Active Reported Xanax (Alprazolam) 0.25 Mg Tablet 0.25 Mg PO PRN DAILY PRN Zofran Odt (Ondansetron) 4 Mg Tab.rapdis 4 Mg PO PRN Q6HRS PRN I-Robyn Tablet (Vit A,C & E/Lutein/Minerals) 1 Each Tablet 1 Tab PO DAILY Amlodipine Besylate 5 Mg Tablet 5 Mg PO DAILY Zoloft (Sertraline Hcl) 50 Mg Tablet 75 Mg PO DAILY Seroquel (Quetiapine Fumarate) 50 Mg Tablet 50 Mg PO QHS Mirtazapine 15 Mg Tablet 15 Mg PO QHS Milk Of Magnesia (Magnesium Hydroxide) 2,400 Mg/10 Ml Oral.susp 2,400 Mg PO PRN QHS PRN Mag-Al Plus Xs Suspension (Mag Hydrox/Al Hydrox/Simeth) 30 Ml Oral.susp 15 Ml PO PRN AFTMEAL PRN Cyanocobalamin Injection (Cyanocobalamin (Vitamin B-12)) 1,000 Mcg/1 Ml Vial 1, 000 Mcg IJ QMONTH Vitamin D3 (Cholecalciferol (Vitamin D3)) 5,000 Unit Tablet 50,000 Unit PO WEEKLY Benztropine Mesylate 0.5 Mg Tablet 0.5 Mg PO BID Tylenol (Acetaminophen) 325 Mg Tablet 650 Mg PO PRN Q6HRS PRN Preservision Areds Softgel (Vit A/Vit C/Vit E/Zinc/Copper) 1 Each Capsule 1 Cap PO DAILY Fexofenadine Hcl 180 Mg Tablet 180 Mg PO DAILY Acetaminophen 500 Mg Tablet 1,000 Mg PO BID MDD 4000 Lisinopril 5 Mg Tablet 5 Mg PO QHS Liquitears (Polyvinyl Alcohol) 15 Ml Drops 1 Drop OU BID Donepezil Hcl 10 Mg Tablet 10 Mg PO QHS I have reviewed the current psychotropics carefully including drug interactions. Risk benefit ratio favors no change other than as noted in my dictated progress note. Diagnosis: Problems: (1) Anxiety disorder (2) Dementia, vascular, with delusions (3) Dementia, vascular, with depression (4) Major depressive disorder, recurrent episode (5) Impulse control disorder ALIYAH RAMÍREZ MD May 22, 2017 21:04
[2017-05-23 06:13] VITALS: BP 154/89
[2017-05-23] MEDS: BENZTROPINE MESYLATE 0.5 MG TABLET PO SCH ×2 (09:06→19:37)
[2017-05-23] MEDS: MULTIVITAMIN I-VITE TABLET. PO SCH (09:06)
[2017-05-23] MEDS: ACETAMINOPHEN 500 MG TABLET PO SCH ×2 (09:06→19:36)
[2017-05-23] MEDS: amLODIPine BESYLATE 5 MG TABLET PO SCH (09:07)
[2017-05-23] MEDS: CETIRIZINE HCL 10 MG TABLET PO SCH (09:07)
[2017-05-23] MEDS: SERTRALINE 50 MG TABLET. PO SCH (09:08)
[2017-05-23] MEDS: QUEtiapine 25 MG TABLET. PO SCH ×2 (09:09→12:30)
[2017-05-23] MEDS: POLYVINYL ALCOHOL 1.4% OPHTH SOLUTION 15ML BOTTLE. OU SCH ×2 (09:09→19:37)
[2017-05-23 15:58] VITALS: BP 125/76
[2017-05-23] MEDS: QUEtiapine 50 MG TABLET. PO SCH (19:36)
[2017-05-23] MEDS: LISINOPRIL 5 MG TABLET. PO SCH (19:36)
[2017-05-23] MEDS: DONEPEZIL HCL 10 MG TABLET PO SCH (19:36)
[2017-05-23] MEDS: ATORVASTATIN CALCIUM 10 MG TABLET. PO SCH (19:37)
[2017-05-23] MEDS: MIRTAZAPINE 15 MG TABLET PO SCH (19:37)
--- NOTE | 2017-05-23 20:52 | PDOC ---
Exam Note: Javier Note: Please also refer to the separate dictated note~for this date of service dictated separately.~Patient seen individually. Discussed the patient with Nursing staff reviewed the chart.~Reviewed interim history and current functioning. Reviewed vital signs,~Labs/ Radiology~and current medications noted below. Continue current treatment with the changes noted in the dictated addendum note Assessment: Vital Signs: Vital Signs Date Time Temp Pulse Resp B/P (MAP) Pulse Ox O2 Delivery O2 Flow Rate FiO2 05/23/17 19:36 84 125/76 05/23/17 15:58 97.5 20 98 05/22/17 15:24 Room Air I&O Intake and Output 05/23/17 07:00 Intake Total 840 ml Balance 840 ml Intake Oral 840 ml # Bowel Movements 1 Current Medications: Meds: Current Medications Alprazolam (Xanax) 0.25 mg PRN DAILY PRN PO ANXIETY / AGITATION Last administered on 05/21/17 13:44; Start 05/20/17 at 20:15 Benztropine Mesylate (Cogentin) 0.5 mg BID PO Last administered on 05/23/17 19 :37; Start 05/20/17 at 21:00 Donepezil HCl (Aricept) 10 mg QHS PO Last administered on 05/23/17 19:36; Start 05/20/17 at 21:00 Mirtazapine (Remeron) 15 mg QHS PO Last administered on 05/23/17 19:37; Start 05/20/17 at 21:00 Quetiapine Fumarate (SEROquel) 50 mg QHS PO Last administered on 05/23/17 19: 36; Start 05/20/17 at 21:00 Sertraline HCl (Zoloft) 75 mg DAILY PO Last administered on 05/23/17 09:08; Start 05/21/17 at 09:00 Acetaminophen (Tylenol) 1,000 mg BID PO Last administered on 05/23/17 19:36; Start 05/20/17 at 21:00 Acetaminophen (Tylenol) 650 mg PRN Q6HRS PRN PO PAIN / TEMP; Start 05/20/17 at 20:15 Amlodipine Besylate (Norvasc) 5 mg DAILY PO Last administered on 05/23/17at 09: 07; Start 05/21/17 at 09:00 Cyanocobalamin (Vitamin B-12) 1,000 mcg QMONTH IM ; Start 06/19/17 at 09:00 Lisinopril (Prinivil) 5 mg QHS PO Last administered on 05/23/17at 19:36; Start 05/20/17 at 21:00 Al Hydroxide/Mg Hydroxide (Mylanta Plus Xs) 15 ml PRN AFTMEAL PRN PO DYSPEPSIA ; Start 05/20/17 at 20:15 Ondansetron HCl (Zofran Odt) 4 mg PRN Q6HRS PRN PO NAUSEA/VOMITING; Start 05/20 at 20:15 Artificial Tears (Artificial Tears) 1 drop BID OU Last administered on at 09:09; Start 05/21/17 at 09:00 Multivitamins/ Minerals (I-Robyn) 1 tab DAILY PO Last administered on 05/23/17at 09:06; Start 05/21/17 at 09:00 Vitamin D (Vitamin D3) 50,000 unit WEEKLY PO ; Start 05/27/17 at 09:00 Cetirizine HCl (ZyrTEC) 10 mg DAILY PO Last administered on 05/23/17 09:07; Start 05/21/17 at 09:00 Magnesium Hydroxide (Milk Of Magnesia) 2,400 mg PRN QHS PRN PO CONSTIPATION; Start 05/20/17 at 20:30 Non-Formulary Medication (Vit A/Vit C/Vit E/Zinc/Copper (Preservision Areds Softgel)) 1 cap DAILY PO ; Start 05/21/17 at 09:00; Status UNV Atorvastatin Calcium (Lipitor) 10 mg QHS PO Last administered on 05/23/17at 19: 37; Start 05/21/17 at 21:00 Trazodone HCl (Desyrel) 50 mg PRN QHS PRN PO INSOMNIA, MAY REPEAT X1; Start at 23:15 Olanzapine (ZyPREXA ZYDIS) 1.25 mg PRN Q2HR PRN PO Psych; Start 05/21/17 at 23: 15 Quetiapine Fumarate (SEROquel) 12.5 mg BID@0900,1300 PO Last administered on at 12:30; Start 05/23/17 at 09:00 Active Scripts Active Reported Xanax (Alprazolam) 0.25 Mg Tablet 0.25 Mg PO PRN DAILY PRN Zofran Odt (Ondansetron) 4 Mg Tab.rapdis 4 Mg PO PRN Q6HRS PRN I-Robyn Tablet (Vit A,C & E/Lutein/Minerals) 1 Each Tablet 1 Tab PO DAILY Amlodipine Besylate 5 Mg Tablet 5 Mg PO DAILY Zoloft (Sertraline Hcl) 50 Mg Tablet 75 Mg PO DAILY Seroquel (Quetiapine Fumarate) 50 Mg Tablet 50 Mg PO QHS Mirtazapine 15 Mg Tablet 15 Mg PO QHS Milk Of Magnesia (Magnesium Hydroxide) 2,400 Mg/10 Ml Oral.susp 2,400 Mg PO PRN QHS PRN Mag-Al Plus Xs Suspension (Mag Hydrox/Al Hydrox/Simeth) 30 Ml Oral.susp 15 Ml PO PRN AFTMEAL PRN Cyanocobalamin Injection (Cyanocobalamin (Vitamin B-12)) 1,000 Mcg/1 Ml Vial 1, 000 Mcg IJ QMONTH Vitamin D3 (Cholecalciferol (Vitamin D3)) 5,000 Unit Tablet 50,000 Unit PO WEEKLY Benztropine Mesylate 0.5 Mg Tablet 0.5 Mg PO BID Tylenol (Acetaminophen) 325 Mg Tablet 650 Mg PO PRN Q6HRS PRN Preservision Areds Softgel (Vit A/Vit C/Vit E/Zinc/Copper) 1 Each Capsule 1 Cap PO DAILY Fexofenadine Hcl 180 Mg Tablet 180 Mg PO DAILY Acetaminophen 500 Mg Tablet 1,000 Mg PO BID MDD 4000 Lisinopril 5 Mg Tablet 5 Mg PO QHS Liquitears (Polyvinyl Alcohol) 15 Ml Drops 1 Drop OU BID Donepezil Hcl 10 Mg Tablet 10 Mg PO QHS I have reviewed the current psychotropics carefully including drug interactions. Risk benefit ratio favors no change other than as noted in my dictated progress note. Diagnosis: Problems: (1) Anxiety disorder (2) Dementia, vascular, with delusions (3) Dementia, vascular, with depression (4) Major depressive disorder, recurrent episode (5) Impulse control disorder ALIYAH RAMÍREZ MD May 23, 2017 20:52
--- NOTE | 2017-05-24 03:27 | PN ---
DATE: 05/22/2017 This is a late entry for 05/22/2017 and covers the elements not covered in my initial note of 05/22/2017. SUBJECTIVE: I met with the patient in the evening of 05/22/2017. The patient slept 7-1/4 hours previous evening, somewhat tearful at night, received p.r.n. Xanax then did better, disorganized, has expressive aphasia, depressed; granddaughter visited, brought her raspberry tea, which she stated calms her down and she was agitated before then. REVIEW OF SYSTEMS: No CV, , pulmonary, eye, ENT system symptoms on review. Reliability poor. MENTAL STATUS EXAM: Oriented to herself and situation. Speech is difficult to understand due to expressive aphasia. Abstraction fair, computation impaired, language function intact, attention span short. Mood and affect still somewhat depressed. LABORATORY DATA: Reviewed. IMPRESSION: Major depressive disorder with psychotic features; anxiety disorder, unspecified; expressive aphasia, major neurocognitive disorder, early vascular with delusion, depression. Rest unchanged. PLAN: Continue current psychotropics, start Seroquel 12.5 mg at 9:00 a.m. and 1:00 p.m. Adjust further as clinically indicated. MAN Geni RAMÍREZ MD DR: ARIANA/chandana JOB#: [id number] / [id number]
[2017-05-24 05:58] VITALS: BP 139/89
[2017-05-24] MEDS: MULTIVITAMIN I-VITE TABLET. PO SCH (09:26)
[2017-05-24] MEDS: SERTRALINE 50 MG TABLET. PO SCH (09:26)
[2017-05-24] MEDS: CETIRIZINE HCL 10 MG TABLET PO SCH (09:26)
[2017-05-24] MEDS: QUEtiapine 25 MG TABLET. PO SCH ×2 (09:30→13:47)
[2017-05-24] MEDS: amLODIPine BESYLATE 5 MG TABLET PO SCH (09:30)
[2017-05-24] MEDS: ACETAMINOPHEN 500 MG TABLET PO SCH ×2 (09:30→19:51)
[2017-05-24] MEDS: BENZTROPINE MESYLATE 0.5 MG TABLET PO SCH (09:30)
[2017-05-24] MEDS: POLYVINYL ALCOHOL 1.4% OPHTH SOLUTION 15ML BOTTLE. OU SCH ×2 (09:33→19:59)
[2017-05-24 16:01] VITALS: BP 120/82
--- NOTE | 2017-05-24 19:40 | PN ---
DATE: 05/23/2017 This is a late entry for 05/23/2017 and covers the elements not covered in my initial note of 05/23/2017. SUBJECTIVE: I met with the patient in the evening of 05/23/2017. The patient slept 7-1/4 hours previous evening, compliant with medications, had a better day. Did well previous night. Expressive aphasia is evident, but she additionally seems confused, still psychotic. REVIEW OF SYSTEMS: No CV, , pulmonary, eye, ENT system symptoms on review. MENTAL STATUS EXAM: Oriented to herself and at times situation. Speech marked by the expressive aphasia. Abstraction fair, computation impaired, language function intact, attention span short. Mood and affect remains somewhat withdrawn, depressed, anxious, psychotic. LABORATORY DATA: Reviewed. IMPRESSION: Unchanged from initial note. PLAN: Continue psychotropics mentioned in my initial note. She is on Cogentin, reason for this is not entirely clear and we will reduce it to once a day in a day or so. ALIYAH RAMÍREZ MD DR: ARIANA/chandana JOB#: [id number] / [id number]
[2017-05-24] MEDS: LISINOPRIL 5 MG TABLET. PO SCH (19:50)
[2017-05-24] MEDS: MIRTAZAPINE 15 MG TABLET PO SCH (19:50)
[2017-05-24] MEDS: QUEtiapine 50 MG TABLET. PO SCH (19:50)
[2017-05-24] MEDS: DONEPEZIL HCL 10 MG TABLET PO SCH (19:51)
[2017-05-24] MEDS: ATORVASTATIN CALCIUM 10 MG TABLET. PO SCH (19:51)
[2017-05-24] MEDS: traZODone 50 MG TABLET. PO PRN (19:52)
--- NOTE | 2017-05-24 21:02 | PDOC ---
Exam Note: Javier Note: Please also refer to the separate dictated note~for this date of service dictated separately.~Patient seen individually. Discussed the patient with Nursing staff reviewed the chart.~Reviewed interim history and current functioning. Reviewed vital signs,~Labs/ Radiology~and current medications noted below. Continue current treatment with the changes noted in the dictated addendum note Assessment: Vital Signs: Vital Signs Date Time Temp Pulse Resp B/P (MAP) Pulse Ox O2 Delivery O2 Flow Rate FiO2 05/24/17 19:50 108 120/82 05/24/17 16:01 98.3 20 95 05/22/17 15:24 Room Air I&O Intake and Output 05/24/17 07:00 Intake Total 1060 ml Balance 1060 ml Intake Oral 1060 ml Current Medications: Meds: Current Medications Alprazolam (Xanax) 0.25 mg PRN DAILY PRN PO ANXIETY / AGITATION Last administered on 05/21/17 13:44; Start 05/20/17 at 20:15 Benztropine Mesylate (Cogentin) 0.5 mg BID PO Last administered on 05/24/17 09 :30; Start 05/20/17 at 21:00; Stop 05/24/17 at 17:09; Status DC Donepezil HCl (Aricept) 10 mg QHS PO Last administered on 05/24/17 19:51; Start 05/20/17 at 21:00 Mirtazapine (Remeron) 15 mg QHS PO Last administered on 05/24/17 19:50; Start 05/20/17 at 21:00 Quetiapine Fumarate (SEROquel) 50 mg QHS PO Last administered on 05/24/17 19: 50; Start 05/20/17 at 21:00 Sertraline HCl (Zoloft) 75 mg DAILY PO Last administered on 05/24/17 09:26; Start 05/21/17 at 09:00 Acetaminophen (Tylenol) 1,000 mg BID PO Last administered on 05/24/17 19:51; Start 05/20/17 at 21:00 Acetaminophen (Tylenol) 650 mg PRN Q6HRS PRN PO PAIN / TEMP; Start 05/20/17 at 20:15 Amlodipine Besylate (Norvasc) 5 mg DAILY PO Last administered on 05/24/17 09: 30; Start 05/21/17 at 09:00 Cyanocobalamin (Vitamin B-12) 1,000 mcg QMONTH IM ; Start 06/19/17 at 09:00 Lisinopril (Prinivil) 5 mg QHS PO Last administered on 05/24/17 19:50; Start 05/20/17 at 21:00 Al Hydroxide/Mg Hydroxide (Mylanta Plus Xs) 15 ml PRN AFTMEAL PRN PO DYSPEPSIA ; Start 05/20/17 at 20:15 Ondansetron HCl (Zofran Odt) 4 mg PRN Q6HRS PRN PO NAUSEA/VOMITING; Start 05/20 at 20:15 Artificial Tears (Artificial Tears) 1 drop BID OU Last administered on 19:59; Start 05/21/17 at 09:00 Multivitamins/ Minerals (I-Robyn) 1 tab DAILY PO Last administered on 05/24/17 09:26; Start 05/21/17 at 09:00 Vitamin D (Vitamin D3) 50,000 unit WEEKLY PO ; Start 05/27/17 at 09:00 Cetirizine HCl (ZyrTEC) 10 mg DAILY PO Last administered on 05/24/17 09:26; Start 05/21/17 at 09:00 Magnesium Hydroxide (Milk Of Magnesia) 2,400 mg PRN QHS PRN PO CONSTIPATION; Start 05/20/17 at 20:30 Non-Formulary Medication (Vit A/Vit C/Vit E/Zinc/Copper (Preservision Areds Softgel)) 1 cap DAILY PO ; Start 05/21/17 at 09:00; Status UNV Atorvastatin Calcium (Lipitor) 10 mg QHS PO Last administered on 05/24/17 19: 51; Start 05/21/17 at 21:00 Trazodone HCl (Desyrel) 50 mg PRN QHS PRN PO INSOMNIA, MAY REPEAT X1 Last administered on 05/24/17 19:52; Start 05/21/17 at 23:15 Olanzapine (ZyPREXA ZYDIS) 1.25 mg PRN Q2HR PRN PO Psych Last administered on 15:56; Start 05/21/17 at 23:15 Quetiapine Fumarate (SEROquel) 12.5 mg BID@0900,1300 PO Last administered on at 13:47; Start 05/23/17 at 09:00 Benztropine Mesylate (Cogentin) 0.5 mg DAILY PO ; Start 05/25/17 at 09:00 Active Scripts Active Reported Xanax (Alprazolam) 0.25 Mg Tablet 0.25 Mg PO PRN DAILY PRN Zofran Odt (Ondansetron) 4 Mg Tab.rapdis 4 Mg PO PRN Q6HRS PRN I-Robyn Tablet (Vit A,C & E/Lutein/Minerals) 1 Each Tablet 1 Tab PO DAILY Amlodipine Besylate 5 Mg Tablet 5 Mg PO DAILY Zoloft (Sertraline Hcl) 50 Mg Tablet 75 Mg PO DAILY Seroquel (Quetiapine Fumarate) 50 Mg Tablet 50 Mg PO QHS Mirtazapine 15 Mg Tablet 15 Mg PO QHS Milk Of Magnesia (Magnesium Hydroxide) 2,400 Mg/10 Ml Oral.susp 2,400 Mg PO PRN QHS PRN Mag-Al Plus Xs Suspension (Mag Hydrox/Al Hydrox/Simeth) 30 Ml Oral.susp 15 Ml PO PRN AFTMEAL PRN Cyanocobalamin Injection (Cyanocobalamin (Vitamin B-12)) 1,000 Mcg/1 Ml Vial 1, 000 Mcg IJ QMONTH Vitamin D3 (Cholecalciferol (Vitamin D3)) 5,000 Unit Tablet 50,000 Unit PO WEEKLY Benztropine Mesylate 0.5 Mg Tablet 0.5 Mg PO BID Tylenol (Acetaminophen) 325 Mg Tablet 650 Mg PO PRN Q6HRS PRN Preservision Areds Softgel (Vit A/Vit C/Vit E/Zinc/Copper) 1 Each Capsule 1 Cap PO DAILY Fexofenadine Hcl 180 Mg Tablet 180 Mg PO DAILY Acetaminophen 500 Mg Tablet 1,000 Mg PO BID MDD 4000 Lisinopril 5 Mg Tablet 5 Mg PO QHS Liquitears (Polyvinyl Alcohol) 15 Ml Drops 1 Drop OU BID Donepezil Hcl 10 Mg Tablet 10 Mg PO QHS I have reviewed the current psychotropics carefully including drug interactions. Risk benefit ratio favors no change other than as noted in my dictated progress note. Diagnosis: Problems: (1) Anxiety disorder (2) Dementia, vascular, with delusions (3) Dementia, vascular, with depression (4) Major depressive disorder, recurrent episode (5) Impulse control disorder ALIYAH RAMÍREZ MD May 24, 2017 21:02
[2017-05-25 06:01] VITALS: BP 130/80
[2017-05-25] MEDS: MULTIVITAMIN I-VITE TABLET. PO SCH (09:20)
[2017-05-25] MEDS: ACETAMINOPHEN 500 MG TABLET PO SCH ×2 (09:20→19:55)
[2017-05-25] MEDS: SERTRALINE 50 MG TABLET. PO SCH (09:20)
[2017-05-25] MEDS: CETIRIZINE HCL 10 MG TABLET PO SCH (09:21)
[2017-05-25] MEDS: QUEtiapine 25 MG TABLET. PO SCH ×2 (09:21→12:51)
[2017-05-25] MEDS: amLODIPine BESYLATE 5 MG TABLET PO SCH (09:22)
[2017-05-25] MEDS: POLYVINYL ALCOHOL 1.4% OPHTH SOLUTION 15ML BOTTLE. OU SCH ×2 (09:23→19:56)
[2017-05-25] MEDS: BENZTROPINE MESYLATE 0.5 MG TABLET PO SCH (09:23)
[2017-05-25 16:07] VITALS: BP 116/82
[2017-05-25] MEDS: QUEtiapine 50 MG TABLET. PO SCH (19:54)
[2017-05-25] MEDS: LISINOPRIL 5 MG TABLET. PO SCH (19:55)
[2017-05-25] MEDS: ATORVASTATIN CALCIUM 10 MG TABLET. PO SCH (19:55)
[2017-05-25] MEDS: MIRTAZAPINE 15 MG TABLET PO SCH (19:56)
[2017-05-25] MEDS: DONEPEZIL HCL 10 MG TABLET PO SCH (19:56)
--- NOTE | 2017-05-25 21:07 | PDOC ---
Exam Note: Javier Note: Please also refer to the separate dictated note~for this date of service dictated separately.~Patient seen individually. Discussed the patient with Nursing staff reviewed the chart.~Reviewed interim history and current functioning. Reviewed vital signs,~Labs/ Radiology~and current medications noted below. Continue current treatment with the changes noted in the dictated addendum note Assessment: Vital Signs: Vital Signs Date Time Temp Pulse Resp B/P (MAP) Pulse Ox O2 Delivery O2 Flow Rate FiO2 05/25/17 19:55 78 116/82 05/25/17 16:07 98.3 16 96 05/22/17 15:24 Room Air I&O Intake and Output 05/25/17 07:00 Intake Total 1160 ml Balance 1160 ml Intake Oral 1160 ml # Voids 3 # Bowel Movements 1 Current Medications: Meds: Current Medications Alprazolam (Xanax) 0.25 mg PRN DAILY PRN PO ANXIETY / AGITATION Last administered on 05/21/17 13:44; Start 05/20/17 at 20:15 Benztropine Mesylate (Cogentin) 0.5 mg BID PO Last administered on 05/24/17at 09 :30; Start 05/20/17 at 21:00; Stop 05/24/17 at 17:09; Status DC Donepezil HCl (Aricept) 10 mg QHS PO Last administered on 05/25/17 19:56; Start 05/20/17 at 21:00 Mirtazapine (Remeron) 15 mg QHS PO Last administered on 05/25/17 19:56; Start 05/20/17 at 21:00 Quetiapine Fumarate (SEROquel) 50 mg QHS PO Last administered on 05/25/17at 19: 54; Start 05/20/17 at 21:00 Sertraline HCl (Zoloft) 75 mg DAILY PO Last administered on 05/25/17at 09:20; Start 05/21/17 at 09:00 Acetaminophen (Tylenol) 1,000 mg BID PO Last administered on 05/25/17at 19:55; Start 05/20/17 at 21:00 Acetaminophen (Tylenol) 650 mg PRN Q6HRS PRN PO PAIN / TEMP; Start 05/20/17 at 20:15 Amlodipine Besylate (Norvasc) 5 mg DAILY PO Last administered on 05/25/17 09: 22; Start 05/21/17 at 09:00 Cyanocobalamin (Vitamin B-12) 1,000 mcg QMONTH IM ; Start 06/19/17 at 09:00 Lisinopril (Prinivil) 5 mg QHS PO Last administered on 05/25/17 19:55; Start 05/20/17 at 21:00 Al Hydroxide/Mg Hydroxide (Mylanta Plus Xs) 15 ml PRN AFTMEAL PRN PO DYSPEPSIA ; Start 05/20/17 at 20:15 Ondansetron HCl (Zofran Odt) 4 mg PRN Q6HRS PRN PO NAUSEA/VOMITING; Start 05/20 at 20:15 Artificial Tears (Artificial Tears) 1 drop BID OU Last administered on 09:23; Start 05/21/17 at 09:00 Multivitamins/ Minerals (I-Robyn) 1 tab DAILY PO Last administered on 05/25/17 09:20; Start 05/21/17 at 09:00 Vitamin D (Vitamin D3) 50,000 unit WEEKLY PO ; Start 05/27/17 at 09:00 Cetirizine HCl (ZyrTEC) 10 mg DAILY PO Last administered on 05/25/17 09:21; Start 05/21/17 at 09:00 Magnesium Hydroxide (Milk Of Magnesia) 2,400 mg PRN QHS PRN PO CONSTIPATION; Start 05/20/17 at 20:30 Non-Formulary Medication (Vit A/Vit C/Vit E/Zinc/Copper (Preservision Areds Softgel)) 1 cap DAILY PO ; Start 05/21/17 at 09:00; Status UNV Atorvastatin Calcium (Lipitor) 10 mg QHS PO Last administered on 05/25/17 19: 55; Start 05/21/17 at 21:00 Trazodone HCl (Desyrel) 50 mg PRN QHS PRN PO INSOMNIA, MAY REPEAT X1 Last administered on 05/24/17 19:52; Start 05/21/17 at 23:15 Olanzapine (ZyPREXA ZYDIS) 1.25 mg PRN Q2HR PRN PO Psych Last administered on 15:56; Start 05/21/17 at 23:15 Quetiapine Fumarate (SEROquel) 12.5 mg BID@0900,1300 PO Last administered on at 12:51; Start 05/23/17 at 09:00 Benztropine Mesylate (Cogentin) 0.5 mg DAILY PO Last administered on 05/25/17at 09:23; Start 05/25/17 at 09:00 Active Scripts Active Reported Xanax (Alprazolam) 0.25 Mg Tablet 0.25 Mg PO PRN DAILY PRN Zofran Odt (Ondansetron) 4 Mg Tab.rapdis 4 Mg PO PRN Q6HRS PRN I-Robyn Tablet (Vit A,C & E/Lutein/Minerals) 1 Each Tablet 1 Tab PO DAILY Amlodipine Besylate 5 Mg Tablet 5 Mg PO DAILY Zoloft (Sertraline Hcl) 50 Mg Tablet 75 Mg PO DAILY Seroquel (Quetiapine Fumarate) 50 Mg Tablet 50 Mg PO QHS Mirtazapine 15 Mg Tablet 15 Mg PO QHS Milk Of Magnesia (Magnesium Hydroxide) 2,400 Mg/10 Ml Oral.susp 2,400 Mg PO PRN QHS PRN Mag-Al Plus Xs Suspension (Mag Hydrox/Al Hydrox/Simeth) 30 Ml Oral.susp 15 Ml PO PRN AFTMEAL PRN Cyanocobalamin Injection (Cyanocobalamin (Vitamin B-12)) 1,000 Mcg/1 Ml Vial 1, 000 Mcg IJ QMONTH Vitamin D3 (Cholecalciferol (Vitamin D3)) 5,000 Unit Tablet 50,000 Unit PO WEEKLY Benztropine Mesylate 0.5 Mg Tablet 0.5 Mg PO BID Tylenol (Acetaminophen) 325 Mg Tablet 650 Mg PO PRN Q6HRS PRN Preservision Areds Softgel (Vit A/Vit C/Vit E/Zinc/Copper) 1 Each Capsule 1 Cap PO DAILY Fexofenadine Hcl 180 Mg Tablet 180 Mg PO DAILY Acetaminophen 500 Mg Tablet 1,000 Mg PO BID MDD 4000 Lisinopril 5 Mg Tablet 5 Mg PO QHS Liquitears (Polyvinyl Alcohol) 15 Ml Drops 1 Drop OU BID Donepezil Hcl 10 Mg Tablet 10 Mg PO QHS I have reviewed the current psychotropics carefully including drug interactions. Risk benefit ratio favors no change other than as noted in my dictated progress note. Diagnosis: Problems: (1) Anxiety disorder (2) Dementia, vascular, with delusions (3) Dementia, vascular, with depression (4) Major depressive disorder, recurrent episode (5) Impulse control disorder ALIYAH RAMÍREZ MD May 25, 2017 21:07
[2017-05-26 05:59] VITALS: BP 125/79
[2017-05-26] MEDS: ACETAMINOPHEN 500 MG TABLET PO SCH ×2 (08:12→19:44)
[2017-05-26] MEDS: amLODIPine BESYLATE 5 MG TABLET PO SCH (08:12)
[2017-05-26] MEDS: MULTIVITAMIN I-VITE TABLET. PO SCH (08:12)
[2017-05-26] MEDS: CETIRIZINE HCL 10 MG TABLET PO SCH (08:12)
[2017-05-26] MEDS: BENZTROPINE MESYLATE 0.5 MG TABLET PO SCH (08:13)
[2017-05-26] MEDS: QUEtiapine 25 MG TABLET. PO SCH ×2 (08:13→13:00)
[2017-05-26] MEDS: SERTRALINE 50 MG TABLET. PO SCH (08:13)
[2017-05-26] MEDS: POLYVINYL ALCOHOL 1.4% OPHTH SOLUTION 15ML BOTTLE. OU SCH ×2 (08:14→19:44)
--- NOTE | 2017-05-26 15:56 | PN ---
DATE: 05/24/2017 PSYCHIATRIC PROGRESS NOTE This is a late entry 05/24/2017 covers elements not covered in my initial note 05/24/2017. SUBJECTIVE: I met with the patient in the evening of 05/24/2017. The patient slept 4-1/2 hours previous evening, somewhat restless, anxious. At 4:00 p.m., she was walking fast, disorganized, pacing, intrusive, received Zyprexa Zydis, then did better. REVIEW OF SYSTEMS: No CV, , pulmonary, eye system symptoms on review. She does have expressive aphasia. MENTAL STATUS EXAM: Oriented to herself and situation. Speech marked by the aphasia, abstraction fair, computation impaired, language function intact, attention span short. Mood and affect somewhat labile. LABORATORY DATA: Reviewed. IMPRESSION: Major depressive disorder with psychotic features; cognitive disorder, unspecified; expressive aphasia. Rest unchanged from admission. PLAN: Continue psychotropics mentioned in my initial note. Adjust Zoloft further as clinically indicated. Cogentin has been reduced. MAN Geni RAMÍREZ MD DR: ARIANA/chandana JOB#: [id number] / [id number]
[2017-05-26 16:16] VITALS: BP 149/80
--- NOTE | 2017-05-26 17:40 | PN ---
DATE: 05/25/2017 This is a late entry for 05/25/2017 and covers the elements not covered in my initial note of 05/25/2017. SUBJECTIVE: I met with the patient in the evening of 05/25/2017 and staffed at a treatment team meeting with the entire team morning of 05/25/2017 and the patient's daughter, Arianna, attended the conference together with Eulalia from the assisted living at [facility] in [place]. Discussed the patient's history at length. At the assisted living, the patient was fairly well oriented. Does have expressive aphasia, was having hallucinations of a man been present around her when no one was there, amongst other things. Slept 8 hours previous evening, compliant with medications, wandering. REVIEW OF SYSTEMS: Positive for the expressive aphasia. No CV, , pulmonary, eye system symptoms on review. MENTAL STATUS EXAM: Oriented to herself and situation. Speech is difficult to understand as above. Abstraction fair, computation impaired, language function intact. Mood and affect still somewhat withdrawn, anxious, at times labile, less paranoid. LABORATORY DATA: Reviewed. IMPRESSION: Major depressive disorder with psychotic features, expressive aphasia. Rest unchanged. PLAN: Continue current psychotropics mentioned in my initial note. Discontinue the Cogentin as she has tolerated the reduction reasonably well. May need to increase Seroquel as an antipsychotic and mood stabilizer. We will decide in a day or so. MAN Geni RAMÍREZ MD DR: ARIANA/chandana JOB#: [id number] / [id number]
[2017-05-26] MEDS: QUEtiapine 50 MG TABLET. PO SCH (19:43)
[2017-05-26] MEDS: MIRTAZAPINE 15 MG TABLET PO SCH (19:44)
[2017-05-26] MEDS: DONEPEZIL HCL 10 MG TABLET PO SCH (19:44)
[2017-05-26] MEDS: LISINOPRIL 5 MG TABLET. PO SCH (19:44)
[2017-05-26] MEDS: ATORVASTATIN CALCIUM 10 MG TABLET. PO SCH (19:44)
--- NOTE | 2017-05-26 21:06 | PDOC ---
Exam Note: Javier Note: Please also refer to the separate dictated note~for this date of service dictated separately.~Patient seen individually. Discussed the patient with Nursing staff reviewed the chart.~Reviewed interim history and current functioning. Reviewed vital signs,~Labs/ Radiology~and current medications noted below. Continue current treatment with the changes noted in the dictated addendum note Assessment: Vital Signs: Vital Signs Date Time Temp Pulse Resp B/P (MAP) Pulse Ox O2 Delivery O2 Flow Rate FiO2 05/26/17 19:44 71 149/80 05/26/17 16:16 98.1 16 97 05/22/17 15:24 Room Air I&O Intake and Output 05/26/17 07:00 Intake Total 960 ml Balance 960 ml Intake Oral 960 ml # Voids 2 Current Medications: Meds: Current Medications Alprazolam (Xanax) 0.25 mg PRN DAILY PRN PO ANXIETY / AGITATION Last administered on 05/21/17 13:44; Start 05/20/17 at 20:15 Benztropine Mesylate (Cogentin) 0.5 mg BID PO Last administered on 05/24/17at 09 :30; Start 05/20/17 at 21:00; Stop 05/24/17 at 17:09; Status DC Donepezil HCl (Aricept) 10 mg QHS PO Last administered on 05/26/17at 19:44; Start 05/20/17 at 21:00 Mirtazapine (Remeron) 15 mg QHS PO Last administered on 05/26/17at 19:44; Start 05/20/17 at 21:00 Quetiapine Fumarate (SEROquel) 50 mg QHS PO Last administered on 05/26/17at 19: 43; Start 05/20/17 at 21:00 Sertraline HCl (Zoloft) 75 mg DAILY PO Last administered on 05/26/17at 08:13; Start 05/21/17 at 09:00 Acetaminophen (Tylenol) 1,000 mg BID PO Last administered on 05/26/17at 19:44; Start 05/20/17 at 21:00 Acetaminophen (Tylenol) 650 mg PRN Q6HRS PRN PO PAIN / TEMP; Start 05/20/17 at 20:15 Amlodipine Besylate (Norvasc) 5 mg DAILY PO Last administered on 05/26/17 08: 12; Start 05/21/17 at 09:00 Cyanocobalamin (Vitamin B-12) 1,000 mcg QMONTH IM ; Start 06/19/17 at 09:00 Lisinopril (Prinivil) 5 mg QHS PO Last administered on 05/26/17 19:44; Start 05/20/17 at 21:00 Al Hydroxide/Mg Hydroxide (Mylanta Plus Xs) 15 ml PRN AFTMEAL PRN PO DYSPEPSIA ; Start 05/20/17 at 20:15 Ondansetron HCl (Zofran Odt) 4 mg PRN Q6HRS PRN PO NAUSEA/VOMITING; Start 05/20 at 20:15 Artificial Tears (Artificial Tears) 1 drop BID OU Last administered on 08:14; Start 05/21/17 at 09:00 Multivitamins/ Minerals (I-Robyn) 1 tab DAILY PO Last administered on 05/26/17 08:12; Start 05/21/17 at 09:00 Vitamin D (Vitamin D3) 50,000 unit WEEKLY PO ; Start 05/27/17 at 09:00 Cetirizine HCl (ZyrTEC) 10 mg DAILY PO Last administered on 05/26/17 08:12; Start 05/21/17 at 09:00 Magnesium Hydroxide (Milk Of Magnesia) 2,400 mg PRN QHS PRN PO CONSTIPATION; Start 05/20/17 at 20:30 Non-Formulary Medication (Vit A/Vit C/Vit E/Zinc/Copper (Preservision Areds Softgel)) 1 cap DAILY PO ; Start 05/21/17 at 09:00; Status UNV Atorvastatin Calcium (Lipitor) 10 mg QHS PO Last administered on 05/26/17 19: 44; Start 05/21/17 at 21:00 Trazodone HCl (Desyrel) 50 mg PRN QHS PRN PO INSOMNIA, MAY REPEAT X1 Last administered on 05/24/17 19:52; Start 05/21/17 at 23:15 Olanzapine (ZyPREXA ZYDIS) 1.25 mg PRN Q2HR PRN PO Psych Last administered on 15:56; Start 05/21/17 at 23:15 Quetiapine Fumarate (SEROquel) 12.5 mg BID@0900,1300 PO Last administered on at 13:00; Start 05/23/17 at 09:00 Benztropine Mesylate (Cogentin) 0.5 mg DAILY PO Last administered on 05/26/17at 08:13; Start 05/25/17 at 09:00 Active Scripts Active Reported Xanax (Alprazolam) 0.25 Mg Tablet 0.25 Mg PO PRN DAILY PRN Zofran Odt (Ondansetron) 4 Mg Tab.rapdis 4 Mg PO PRN Q6HRS PRN I-Robyn Tablet (Vit A,C & E/Lutein/Minerals) 1 Each Tablet 1 Tab PO DAILY Amlodipine Besylate 5 Mg Tablet 5 Mg PO DAILY Zoloft (Sertraline Hcl) 50 Mg Tablet 75 Mg PO DAILY Seroquel (Quetiapine Fumarate) 50 Mg Tablet 50 Mg PO QHS Mirtazapine 15 Mg Tablet 15 Mg PO QHS Milk Of Magnesia (Magnesium Hydroxide) 2,400 Mg/10 Ml Oral.susp 2,400 Mg PO PRN QHS PRN Mag-Al Plus Xs Suspension (Mag Hydrox/Al Hydrox/Simeth) 30 Ml Oral.susp 15 Ml PO PRN AFTMEAL PRN Cyanocobalamin Injection (Cyanocobalamin (Vitamin B-12)) 1,000 Mcg/1 Ml Vial 1, 000 Mcg IJ QMONTH Vitamin D3 (Cholecalciferol (Vitamin D3)) 5,000 Unit Tablet 50,000 Unit PO WEEKLY Benztropine Mesylate 0.5 Mg Tablet 0.5 Mg PO BID Tylenol (Acetaminophen) 325 Mg Tablet 650 Mg PO PRN Q6HRS PRN Preservision Areds Softgel (Vit A/Vit C/Vit E/Zinc/Copper) 1 Each Capsule 1 Cap PO DAILY Fexofenadine Hcl 180 Mg Tablet 180 Mg PO DAILY Acetaminophen 500 Mg Tablet 1,000 Mg PO BID MDD 4000 Lisinopril 5 Mg Tablet 5 Mg PO QHS Liquitears (Polyvinyl Alcohol) 15 Ml Drops 1 Drop OU BID Donepezil Hcl 10 Mg Tablet 10 Mg PO QHS I have reviewed the current psychotropics carefully including drug interactions. Risk benefit ratio favors no change other than as noted in my dictated progress note. Diagnosis: Problems: (1) Anxiety disorder (2) Dementia, vascular, with delusions (3) Dementia, vascular, with depression (4) Major depressive disorder, recurrent episode (5) Impulse control disorder ALIYAH RAMÍREZ MD May 26, 2017 21:06
[2017-05-27 05:56] VITALS: BP 128/72
[2017-05-27 06:59] LABS: BASO # 0.1 x10^3/uL (0.0-0.2); BASO % 1 % (0-3); EOS # 0.1 x10^3/uL (0.0-0.7); EOS % 2 % (0-3); HEMOGLOBIN 12.2 g/dL (12.0-15.5); LYMPH # 1.3 x10^3/uL (1.0-4.8); LYMPH % 20 % (24-48); MEAN CORPUSCULAR HEMOGLOBIN 32 pg (25-35); MEAN CORPUSCULAR HGB CONC 35 g/dL (31-37); MEAN CORPUSCULAR VOLUME 93 fL (79-100); MONO # 0.4 x10^3/uL (0.0-1.1); MONO % 7 % (0-9); NEUT # 4.7 x10^3uL (1.8-7.7); NEUT % 70 % (31-73); PLATELET COUNT 263 x10^3/uL (140-400); RED BLOOD COUNT 3.75 x10^6/uL (3.50-5.40); RED CELL DISTRIBUTION WIDTH 12.1 % (11.5-14.5); WHITE BLOOD COUNT 6.7 x10^3/uL (4.0-11.0)
[2017-05-27 07:18] LABS: ALBUMIN 3.6 g/dL (3.4-5.0); ALBUMIN/GLOBULIN RATIO 1.2 (1.0-1.7); CALCIUM 9.1 mg/dL (8.5-10.1); CREATININE 1.2 mg/dL (0.6-1.0); GFR 43.4; POTASSIUM 4.2 mmol/L (3.5-5.1); TOTAL BILIRUBIN 0.5 mg/dL (0.2-1.0); TOTAL PROTEIN 6.7 g/dL (6.4-8.2)
[2017-05-27] MEDS: BENZTROPINE MESYLATE 0.5 MG TABLET PO SCH (07:43)
[2017-05-27] MEDS: QUEtiapine 25 MG TABLET. PO SCH ×2 (07:43→13:17)
[2017-05-27] MEDS: MULTIVITAMIN I-VITE TABLET. PO SCH (07:43)
[2017-05-27] MEDS: amLODIPine BESYLATE 5 MG TABLET PO SCH (07:44)
[2017-05-27] MEDS: SERTRALINE 50 MG TABLET. PO SCH (07:44)
[2017-05-27] MEDS: CETIRIZINE HCL 10 MG TABLET PO SCH (07:44)
[2017-05-27] MEDS: ACETAMINOPHEN 500 MG TABLET PO SCH ×2 (07:44→18:42)
[2017-05-27] MEDS: POLYVINYL ALCOHOL 1.4% OPHTH SOLUTION 15ML BOTTLE. OU SCH ×2 (07:44→18:43)
[2017-05-27] MEDS: CHOLECALCIFEROL (VITAMIN D3) 50,000 UNIT CAPSULE PO SCH (07:46)
[2017-05-27 16:07] VITALS: BP 113/70
--- NOTE | 2017-05-27 18:12 | PN ---
DATE: 05/26/2017 This is a late entry 05/26/2017 covers elements not covered in my initial note of 05/26/2017. Met with the patient evening of 05/26/2017. The patient is somewhat irritable when given her meds. Labs to be checked in the morning. REVIEW OF SYSTEMS: No CV, , pulmonary, eye, ENT system symptoms on review. MENTAL STATUS EXAM: Oriented to herself and situation. Speech is difficult to understand due to her expressive aphasia. Abstraction fair, computation impaired, language function intact. Mood and affect somewhat withdrawn. LABORATORY DATA: Reviewed. IMPRESSION: Unchanged from initial note. PLAN: Continue current psychotropics mentioned in my initial note. MAN Geni RAMÍREZ MD DR: ARIANA/chandana JOB#: [id number] / [id number]
[2017-05-27] MEDS: QUEtiapine 50 MG TABLET. PO SCH (18:40)
[2017-05-27] MEDS: ATORVASTATIN CALCIUM 10 MG TABLET. PO SCH (18:42)
[2017-05-27] MEDS: DONEPEZIL HCL 10 MG TABLET PO SCH (18:42)
[2017-05-27] MEDS: MIRTAZAPINE 15 MG TABLET PO SCH (18:42)
[2017-05-27] MEDS: LISINOPRIL 5 MG TABLET. PO SCH (18:43)
--- NOTE | 2017-05-27 22:08 | PDOC ---
Exam Note: Javier Note: Please also refer to the separate dictated note~for this date of service dictated separately.~Patient seen individually. Discussed the patient with Nursing staff reviewed the chart.~Reviewed interim history and current functioning. Reviewed vital signs,~Labs/ Radiology~and current medications noted below. Continue current treatment with the changes noted in the dictated addendum note Assessment: Vital Signs: Vital Signs Date Time Temp Pulse Resp B/P (MAP) Pulse Ox O2 Delivery O2 Flow Rate FiO2 05/27/17 18:43 69 113/70 05/27/17 16:07 98.2 18 97 05/22/17 15:24 Room Air I&O Intake and Output 05/27/17 07:00 Intake Total 480 ml Balance 480 ml Intake Oral 480 ml Labs: Laboratory Tests Test 05/27/17 06:42 White Blood Count 6.7 x10^3/uL (4.0-11.0) Red Blood Count 3.75 x10^6/uL (3.50-5.40) Hemoglobin 12.2 g/dL (12.0-15.5) Hematocrit 35.0 % (36.0-47.0) L Mean Corpuscular Volume 93 fL (79-100) Mean Corpuscular Hemoglobin 32 pg (25-35) Mean Corpuscular Hemoglobin Concent 35 g/dL (31-37) Red Cell Distribution Width 12.1 % (11.5-14.5) Platelet Count 263 x10^3/uL (140-400) Neutrophils (%) (Auto) 70 % (31-73) Lymphocytes (%) (Auto) 20 % (24-48) L Monocytes (%) (Auto) 7 % (0-9) Eosinophils (%) (Auto) 2 % (0-3) Basophils (%) (Auto) 1 % (0-3) Neutrophils # (Auto) 4.7 x10^3uL (1.8-7.7) Lymphocytes # (Auto) 1.3 x10^3/uL (1.0-4.8) Monocytes # (Auto) 0.4 x10^3/uL (0.0-1.1) Eosinophils # (Auto) 0.1 x10^3/uL (0.0-0.7) Basophils # (Auto) 0.1 x10^3/uL (0.0-0.2) Sodium Level 142 mmol/L (136-145) Potassium Level 4.2 mmol/L (3.5-5.1) Chloride Level 106 mmol/L (98-107) Carbon Dioxide Level 29 mmol/L (21-32) Anion Gap 7 (6-14) Blood Urea Nitrogen 25 mg/dL (7-20) H Creatinine 1.2 mg/dL (0.6-1.0) H Estimated GFR (Cockcroft-Gault) 43.4 BUN/Creatinine Ratio 21 (6-20) H Glucose Level 91 mg/dL (70-99) Calcium Level 9.1 mg/dL (8.5-10.1) Total Bilirubin 0.5 mg/dL (0.2-1.0) Aspartate Amino Transferase (AST) 8 U/L (15-37) L Alanine Aminotransferase (ALT) 14 U/L (14-59) Alkaline Phosphatase 64 U/L (46-116) Total Protein 6.7 g/dL (6.4-8.2) Albumin 3.6 g/dL (3.4-5.0) Albumin/Globulin Ratio 1.2 (1.0-1.7) Current Medications: Meds: Current Medications Alprazolam (Xanax) 0.25 mg PRN DAILY PRN PO ANXIETY / AGITATION Last administered on 05/21/17at 13:44; Start 05/20/17 at 20:15 Benztropine Mesylate (Cogentin) 0.5 mg BID PO Last administered on 05/24/17at 09 :30; Start 05/20/17 at 21:00; Stop 05/24/17 at 17:09; Status DC Donepezil HCl (Aricept) 10 mg QHS PO Last administered on 05/27/17 18:42; Start 05/20/17 at 21:00 Mirtazapine (Remeron) 15 mg QHS PO Last administered on 05/27/17 18:42; Start 05/20/17 at 21:00 Quetiapine Fumarate (SEROquel) 50 mg QHS PO Last administered on 05/27/17 18: 40; Start 05/20/17 at 21:00 Sertraline HCl (Zoloft) 75 mg DAILY PO Last administered on 05/27/17at 07:44; Start 05/21/17 at 09:00 Acetaminophen (Tylenol) 1,000 mg BID PO Last administered on 05/27/17 18:42; Start 05/20/17 at 21:00 Acetaminophen (Tylenol) 650 mg PRN Q6HRS PRN PO PAIN / TEMP; Start 05/20/17 at 20:15 Amlodipine Besylate (Norvasc) 5 mg DAILY PO Last administered on 05/27/17 07: 44; Start 05/21/17 at 09:00 Cyanocobalamin (Vitamin B-12) 1,000 mcg QMONTH IM ; Start 06/19/17 at 09:00 Lisinopril (Prinivil) 5 mg QHS PO Last administered on 05/27/17 18:43; Start 05/20/17 at 21:00 Al Hydroxide/Mg Hydroxide (Mylanta Plus Xs) 15 ml PRN AFTMEAL PRN PO DYSPEPSIA ; Start 05/20/17 at 20:15 Ondansetron HCl (Zofran Odt) 4 mg PRN Q6HRS PRN PO NAUSEA/VOMITING; Start 05/20 at 20:15 Artificial Tears (Artificial Tears) 1 drop BID OU Last administered on 18:43; Start 05/21/17 at 09:00 Multivitamins/ Minerals (I-Robyn) 1 tab DAILY PO Last administered on 05/27/17 07:43; Start 05/21/17 at 09:00 Vitamin D (Vitamin D3) 50,000 unit WEEKLY PO Last administered on 05/27/17 07: 46; Start 05/27/17 at 09:00 Cetirizine HCl (ZyrTEC) 10 mg DAILY PO Last administered on 05/27/17 07:44; Start 05/21/17 at 09:00 Magnesium Hydroxide (Milk Of Magnesia) 2,400 mg PRN QHS PRN PO CONSTIPATION; Start 05/20/17 at 20:30 Non-Formulary Medication (Vit A/Vit C/Vit E/Zinc/Copper (Preservision Areds Softgel)) 1 cap DAILY PO ; Start 05/21/17 at 09:00; Status UNV Atorvastatin Calcium (Lipitor) 10 mg QHS PO Last administered on 05/27/17 18: 42; Start 05/21/17 at 21:00 Trazodone HCl (Desyrel) 50 mg PRN QHS PRN PO INSOMNIA, MAY REPEAT X1 Last administered on 05/24/17at 19:52; Start 05/21/17 at 23:15 Olanzapine (ZyPREXA ZYDIS) 1.25 mg PRN Q2HR PRN PO Psych Last administered on at 15:56; Start 05/21/17 at 23:15 Quetiapine Fumarate (SEROquel) 12.5 mg BID@0900,1300 PO Last administered on at 13:17; Start 05/23/17 at 09:00 Benztropine Mesylate (Cogentin) 0.5 mg DAILY PO Last administered on 05/27/17at 07:43; Start 05/25/17 at 09:00 Active Scripts Active Reported Xanax (Alprazolam) 0.25 Mg Tablet 0.25 Mg PO PRN DAILY PRN Zofran Odt (Ondansetron) 4 Mg Tab.rapdis 4 Mg PO PRN Q6HRS PRN I-Robyn Tablet (Vit A,C & E/Lutein/Minerals) 1 Each Tablet 1 Tab PO DAILY Amlodipine Besylate 5 Mg Tablet 5 Mg PO DAILY Zoloft (Sertraline Hcl) 50 Mg Tablet 75 Mg PO DAILY Seroquel (Quetiapine Fumarate) 50 Mg Tablet 50 Mg PO QHS Mirtazapine 15 Mg Tablet 15 Mg PO QHS Milk Of Magnesia (Magnesium Hydroxide) 2,400 Mg/10 Ml Oral.susp 2,400 Mg PO PRN QHS PRN Mag-Al Plus Xs Suspension (Mag Hydrox/Al Hydrox/Simeth) 30 Ml Oral.susp 15 Ml PO PRN AFTMEAL PRN Cyanocobalamin Injection (Cyanocobalamin (Vitamin B-12)) 1,000 Mcg/1 Ml Vial 1, 000 Mcg IJ QMONTH Vitamin D3 (Cholecalciferol (Vitamin D3)) 5,000 Unit Tablet 50,000 Unit PO WEEKLY Benztropine Mesylate 0.5 Mg Tablet 0.5 Mg PO BID Tylenol (Acetaminophen) 325 Mg Tablet 650 Mg PO PRN Q6HRS PRN Preservision Areds Softgel (Vit A/Vit C/Vit E/Zinc/Copper) 1 Each Capsule 1 Cap PO DAILY Fexofenadine Hcl 180 Mg Tablet 180 Mg PO DAILY Acetaminophen 500 Mg Tablet 1,000 Mg PO BID MDD 4000 Lisinopril 5 Mg Tablet 5 Mg PO QHS Liquitears (Polyvinyl Alcohol) 15 Ml Drops 1 Drop OU BID Donepezil Hcl 10 Mg Tablet 10 Mg PO QHS I have reviewed the current psychotropics carefully including drug interactions. Risk benefit ratio favors no change other than as noted in my dictated progress note. Diagnosis: Problems: (1) Anxiety disorder (2) Dementia, vascular, with delusions (3) Dementia, vascular, with depression (4) Major depressive disorder, recurrent episode (5) Impulse control disorder ALIYAH RAMÍREZ MD May 27, 2017 22:08
[2017-05-28 05:59] VITALS: BP 125/79
[2017-05-28] MEDS: MULTIVITAMIN I-VITE TABLET. PO SCH (08:56)
[2017-05-28] MEDS: BENZTROPINE MESYLATE 0.5 MG TABLET PO SCH (08:56)
[2017-05-28] MEDS: QUEtiapine 25 MG TABLET. PO SCH ×2 (08:56→13:35)
[2017-05-28] MEDS: CETIRIZINE HCL 10 MG TABLET PO SCH (08:57)
[2017-05-28] MEDS: ACETAMINOPHEN 500 MG TABLET PO SCH ×2 (08:57→20:51)
[2017-05-28] MEDS: amLODIPine BESYLATE 5 MG TABLET PO SCH (08:57)
[2017-05-28] MEDS: SERTRALINE 50 MG TABLET. PO SCH (08:57)
[2017-05-28] MEDS: POLYVINYL ALCOHOL 1.4% OPHTH SOLUTION 15ML BOTTLE. OU SCH ×2 (08:58→20:51)
[2017-05-28 16:12] VITALS: BP 125/69
[2017-05-28] MEDS: MIRTAZAPINE 15 MG TABLET PO SCH (20:49)
[2017-05-28] MEDS: ATORVASTATIN CALCIUM 10 MG TABLET. PO SCH (20:49)
[2017-05-28] MEDS: LISINOPRIL 5 MG TABLET. PO SCH (20:50)
[2017-05-28] MEDS: QUEtiapine 50 MG TABLET. PO SCH (20:51)
[2017-05-28] MEDS: DONEPEZIL HCL 10 MG TABLET PO SCH (20:51)
--- NOTE | 2017-05-28 21:06 | PDOC ---
Exam Note: Javier Note: Please also refer to the separate dictated note~for this date of service dictated separately.~Patient seen individually. Discussed the patient with Nursing staff reviewed the chart.~Reviewed interim history and current functioning. Reviewed vital signs,~Labs/ Radiology~and current medications noted below. Continue current treatment with the changes noted in the dictated addendum note Assessment: Vital Signs: Vital Signs Date Time Temp Pulse Resp B/P (MAP) Pulse Ox O2 Delivery O2 Flow Rate FiO2 05/28/17 20:50 100 125/69 05/28/17 16:12 97.6 18 98 05/22/17 15:24 Room Air I&O Intake and Output 05/28/17 07:00 Intake Total 460 ml Balance 460 ml Intake Oral 460 ml # Voids 1 Current Medications: Meds: Current Medications Alprazolam (Xanax) 0.25 mg PRN DAILY PRN PO ANXIETY / AGITATION Last administered on 05/21/17 13:44; Start 05/20/17 at 20:15 Benztropine Mesylate (Cogentin) 0.5 mg BID PO Last administered on 05/24/17 09 :30; Start 05/20/17 at 21:00; Stop 05/24/17 at 17:09; Status DC Donepezil HCl (Aricept) 10 mg QHS PO Last administered on 05/28/17 20:51; Start 05/20/17 at 21:00 Mirtazapine (Remeron) 15 mg QHS PO Last administered on 05/28/17 20:49; Start 05/20/17 at 21:00 Quetiapine Fumarate (SEROquel) 50 mg QHS PO Last administered on 05/28/17 20: 51; Start 05/20/17 at 21:00 Sertraline HCl (Zoloft) 75 mg DAILY PO Last administered on 05/28/17 08:57; Start 05/21/17 at 09:00 Acetaminophen (Tylenol) 1,000 mg BID PO Last administered on 05/28/17 20:51; Start 05/20/17 at 21:00 Acetaminophen (Tylenol) 650 mg PRN Q6HRS PRN PO PAIN / TEMP; Start 05/20/17 at 20:15 Amlodipine Besylate (Norvasc) 5 mg DAILY PO Last administered on 05/28/17 08: 57; Start 05/21/17 at 09:00 Cyanocobalamin (Vitamin B-12) 1,000 mcg QMONTH IM ; Start 06/19/17 at 09:00 Lisinopril (Prinivil) 5 mg QHS PO Last administered on 05/28/17 20:50; Start 05/20/17 at 21:00 Al Hydroxide/Mg Hydroxide (Mylanta Plus Xs) 15 ml PRN AFTMEAL PRN PO DYSPEPSIA ; Start 05/20/17 at 20:15 Ondansetron HCl (Zofran Odt) 4 mg PRN Q6HRS PRN PO NAUSEA/VOMITING; Start 05/20 at 20:15 Artificial Tears (Artificial Tears) 1 drop BID OU Last administered on 20:51; Start 05/21/17 at 09:00 Multivitamins/ Minerals (I-Robyn) 1 tab DAILY PO Last administered on 05/28/17 08:56; Start 05/21/17 at 09:00 Vitamin D (Vitamin D3) 50,000 unit WEEKLY PO Last administered on 05/27/17 07: 46; Start 05/27/17 at 09:00 Cetirizine HCl (ZyrTEC) 10 mg DAILY PO Last administered on 05/28/17 08:57; Start 05/21/17 at 09:00 Magnesium Hydroxide (Milk Of Magnesia) 2,400 mg PRN QHS PRN PO CONSTIPATION Last administered on 05/28/17 13:35; Start 05/20/17 at 20:30 Non-Formulary Medication (Vit A/Vit C/Vit E/Zinc/Copper (Preservision Areds Softgel)) 1 cap DAILY PO ; Start 05/21/17 at 09:00; Status UNV Atorvastatin Calcium (Lipitor) 10 mg QHS PO Last administered on 05/28/17 20: 49; Start 05/21/17 at 21:00 Trazodone HCl (Desyrel) 50 mg PRN QHS PRN PO INSOMNIA, MAY REPEAT X1 Last administered on 05/24/17 19:52; Start 05/21/17 at 23:15 Olanzapine (ZyPREXA ZYDIS) 1.25 mg PRN Q2HR PRN PO Psych Last administered on 3 /21/18at 15:56; Start 05/21/17 at 23:15 Quetiapine Fumarate (SEROquel) 12.5 mg BID@0900,1300 PO Last administered on at 13:35; Start 05/23/17 at 09:00 Benztropine Mesylate (Cogentin) 0.5 mg DAILY PO Last administered on 05/28/17at 08:56; Start 05/25/17 at 09:00 Active Scripts Active Reported Xanax (Alprazolam) 0.25 Mg Tablet 0.25 Mg PO PRN DAILY PRN Zofran Odt (Ondansetron) 4 Mg Tab.rapdis 4 Mg PO PRN Q6HRS PRN I-Robyn Tablet (Vit A,C & E/Lutein/Minerals) 1 Each Tablet 1 Tab PO DAILY Amlodipine Besylate 5 Mg Tablet 5 Mg PO DAILY Zoloft (Sertraline Hcl) 50 Mg Tablet 75 Mg PO DAILY Seroquel (Quetiapine Fumarate) 50 Mg Tablet 50 Mg PO QHS Mirtazapine 15 Mg Tablet 15 Mg PO QHS Milk Of Magnesia (Magnesium Hydroxide) 2,400 Mg/10 Ml Oral.susp 2,400 Mg PO PRN QHS PRN Mag-Al Plus Xs Suspension (Mag Hydrox/Al Hydrox/Simeth) 30 Ml Oral.susp 15 Ml PO PRN AFTMEAL PRN Cyanocobalamin Injection (Cyanocobalamin (Vitamin B-12)) 1,000 Mcg/1 Ml Vial 1, 000 Mcg IJ QMONTH Vitamin D3 (Cholecalciferol (Vitamin D3)) 5,000 Unit Tablet 50,000 Unit PO WEEKLY Benztropine Mesylate 0.5 Mg Tablet 0.5 Mg PO BID Tylenol (Acetaminophen) 325 Mg Tablet 650 Mg PO PRN Q6HRS PRN Preservision Areds Softgel (Vit A/Vit C/Vit E/Zinc/Copper) 1 Each Capsule 1 Cap PO DAILY Fexofenadine Hcl 180 Mg Tablet 180 Mg PO DAILY Acetaminophen 500 Mg Tablet 1,000 Mg PO BID MDD 4000 Lisinopril 5 Mg Tablet 5 Mg PO QHS Liquitears (Polyvinyl Alcohol) 15 Ml Drops 1 Drop OU BID Donepezil Hcl 10 Mg Tablet 10 Mg PO QHS I have reviewed the current psychotropics carefully including drug interactions. Risk benefit ratio favors no change other than as noted in my dictated progress note. Diagnosis: Problems: (1) Anxiety disorder (2) Dementia, vascular, with delusions (3) Dementia, vascular, with depression (4) Major depressive disorder, recurrent episode (5) Impulse control disorder ALIYAH RAMÍREZ MD May 28, 2017 21:06
[2017-05-29 06:06] VITALS: BP 133/72
[2017-05-29] MEDS: POLYVINYL ALCOHOL 1.4% OPHTH SOLUTION 15ML BOTTLE. OU SCH ×2 (09:00→19:32)
[2017-05-29] MEDS: ACETAMINOPHEN 500 MG TABLET PO SCH ×2 (09:11→19:33)
[2017-05-29] MEDS: MULTIVITAMIN I-VITE TABLET. PO SCH (09:12)
[2017-05-29] MEDS: amLODIPine BESYLATE 5 MG TABLET PO SCH (09:12)
[2017-05-29] MEDS: QUEtiapine 25 MG TABLET. PO SCH ×2 (09:12→14:29)
[2017-05-29] MEDS: CETIRIZINE HCL 10 MG TABLET PO SCH (09:12)
[2017-05-29] MEDS: SERTRALINE 50 MG TABLET. PO SCH (09:12)
[2017-05-29 16:11] VITALS: BP 131/69
[2017-05-29] MEDS: MIRTAZAPINE 15 MG TABLET PO SCH (19:32)
[2017-05-29] MEDS: LISINOPRIL 5 MG TABLET. PO SCH (19:33)
[2017-05-29] MEDS: ATORVASTATIN CALCIUM 10 MG TABLET. PO SCH (19:33)
[2017-05-29] MEDS: QUEtiapine 50 MG TABLET. PO SCH (19:33)
[2017-05-29] MEDS: DONEPEZIL HCL 10 MG TABLET PO SCH (19:33)
--- NOTE | 2017-05-29 21:02 | PDOC ---
Exam Note: Javier Note: Please also refer to the separate dictated note~for this date of service dictated separately.~Patient seen individually. Discussed the patient with Nursing staff reviewed the chart.~Reviewed interim history and current functioning. Reviewed vital signs,~Labs/ Radiology~and current medications noted below. Continue current treatment with the changes noted in the dictated addendum note Assessment: Vital Signs: Vital Signs Date Time Temp Pulse Resp B/P (MAP) Pulse Ox O2 Delivery O2 Flow Rate FiO2 05/29/17 19:33 71 131/69 05/29/17 16:11 98.8 20 95 I&O Intake and Output 05/29/17 07:00 Intake Total 845 ml Balance 845 ml Intake Oral 845 ml # Bowel Movements 1 Current Medications: Meds: Current Medications Alprazolam (Xanax) 0.25 mg PRN DAILY PRN PO ANXIETY / AGITATION Last administered on 05/21/17 13:44; Start 05/20/17 at 20:15 Benztropine Mesylate (Cogentin) 0.5 mg BID PO Last administered on 05/24/17 09 :30; Start 05/20/17 at 21:00; Stop 05/24/17 at 17:09; Status DC Donepezil HCl (Aricept) 10 mg QHS PO Last administered on 05/29/17 19:33; Start 05/20/17 at 21:00 Mirtazapine (Remeron) 15 mg QHS PO Last administered on 05/29/17 19:32; Start 05/20/17 at 21:00 Quetiapine Fumarate (SEROquel) 50 mg QHS PO Last administered on 05/29/17 19: 33; Start 05/20/17 at 21:00 Sertraline HCl (Zoloft) 75 mg DAILY PO Last administered on 05/29/17 09:12; Start 05/21/17 at 09:00; Stop 05/29/17 at 18:12; Status DC Acetaminophen (Tylenol) 1,000 mg BID PO Last administered on 05/29/17 19:33; Start 05/20/17 at 21:00 Acetaminophen (Tylenol) 650 mg PRN Q6HRS PRN PO PAIN / TEMP; Start 05/20/17 at 20:15 Amlodipine Besylate (Norvasc) 5 mg DAILY PO Last administered on 05/29/17 09: 12; Start 05/21/17 at 09:00 Cyanocobalamin (Vitamin B-12) 1,000 mcg QMONTH IM ; Start 06/19/17 at 09:00 Lisinopril (Prinivil) 5 mg QHS PO Last administered on 05/29/17 19:33; Start 05/20/17 at 21:00 Al Hydroxide/Mg Hydroxide (Mylanta Plus Xs) 15 ml PRN AFTMEAL PRN PO DYSPEPSIA ; Start 05/20/17 at 20:15 Ondansetron HCl (Zofran Odt) 4 mg PRN Q6HRS PRN PO NAUSEA/VOMITING; Start 05/20 at 20:15 Artificial Tears (Artificial Tears) 1 drop BID OU Last administered on 19:32; Start 05/21/17 at 09:00 Multivitamins/ Minerals (I-Robyn) 1 tab DAILY PO Last administered on 05/29/17 09:12; Start 05/21/17 at 09:00 Vitamin D (Vitamin D3) 50,000 unit WEEKLY PO Last administered on 05/27/17 07: 46; Start 05/27/17 at 09:00 Cetirizine HCl (ZyrTEC) 10 mg DAILY PO Last administered on 05/29/17 09:12; Start 05/21/17 at 09:00 Magnesium Hydroxide (Milk Of Magnesia) 2,400 mg PRN QHS PRN PO CONSTIPATION Last administered on 05/28/17 13:35; Start 05/20/17 at 20:30 Non-Formulary Medication (Vit A/Vit C/Vit E/Zinc/Copper (Preservision Areds Softgel)) 1 cap DAILY PO ; Start 05/21/17 at 09:00; Status UNV Atorvastatin Calcium (Lipitor) 10 mg QHS PO Last administered on 05/29/17 19: 33; Start 05/21/17 at 21:00 Trazodone HCl (Desyrel) 50 mg PRN QHS PRN PO INSOMNIA, MAY REPEAT X1 Last administered on 05/24/17 19:52; Start 05/21/17 at 23:15 Olanzapine (ZyPREXA ZYDIS) 1.25 mg PRN Q2HR PRN PO Psych Last administered on at 15:56; Start 05/21/17 at 23:15 Quetiapine Fumarate (SEROquel) 12.5 mg BID@0900,1300 PO Last administered on at 14:29; Start 05/23/17 at 09:00 Benztropine Mesylate (Cogentin) 0.5 mg DAILY PO Last administered on 05/28/17at 08:56; Start 05/25/17 at 09:00; Stop 05/28/17 at 21:58; Status DC Sertraline HCl (Zoloft) 100 mg DAILY PO ; Start 05/30/17 at 09:00 Active Scripts Active Reported Xanax (Alprazolam) 0.25 Mg Tablet 0.25 Mg PO PRN DAILY PRN Zofran Odt (Ondansetron) 4 Mg Tab.rapdis 4 Mg PO PRN Q6HRS PRN I-Robyn Tablet (Vit A,C & E/Lutein/Minerals) 1 Each Tablet 1 Tab PO DAILY Amlodipine Besylate 5 Mg Tablet 5 Mg PO DAILY Zoloft (Sertraline Hcl) 50 Mg Tablet 75 Mg PO DAILY Seroquel (Quetiapine Fumarate) 50 Mg Tablet 50 Mg PO QHS Mirtazapine 15 Mg Tablet 15 Mg PO QHS Milk Of Magnesia (Magnesium Hydroxide) 2,400 Mg/10 Ml Oral.susp 2,400 Mg PO PRN QHS PRN Mag-Al Plus Xs Suspension (Mag Hydrox/Al Hydrox/Simeth) 30 Ml Oral.susp 15 Ml PO PRN AFTMEAL PRN Cyanocobalamin Injection (Cyanocobalamin (Vitamin B-12)) 1,000 Mcg/1 Ml Vial 1, 000 Mcg IJ QMONTH Vitamin D3 (Cholecalciferol (Vitamin D3)) 5,000 Unit Tablet 50,000 Unit PO WEEKLY Benztropine Mesylate 0.5 Mg Tablet 0.5 Mg PO BID Tylenol (Acetaminophen) 325 Mg Tablet 650 Mg PO PRN Q6HRS PRN Preservision Areds Softgel (Vit A/Vit C/Vit E/Zinc/Copper) 1 Each Capsule 1 Cap PO DAILY Fexofenadine Hcl 180 Mg Tablet 180 Mg PO DAILY Acetaminophen 500 Mg Tablet 1,000 Mg PO BID MDD 4000 Lisinopril 5 Mg Tablet 5 Mg PO QHS Liquitears (Polyvinyl Alcohol) 15 Ml Drops 1 Drop OU BID Donepezil Hcl 10 Mg Tablet 10 Mg PO QHS I have reviewed the current psychotropics carefully including drug interactions. Risk benefit ratio favors no change other than as noted in my dictated progress note. Diagnosis: Problems: (1) Anxiety disorder (2) Dementia, vascular, with delusions (3) Dementia, vascular, with depression (4) Major depressive disorder, recurrent episode (5) Impulse control disorder ALIYAH RAMÍREZ MD May 29, 2017 21:02
--- NOTE | 2017-05-29 22:55 | PN ---
DATE: 05/27/2017 This is a late entry for 05/27/2017 and covers elements not covered in my initial note of 05/27/2017. I met with the patient evening of 05/27/2017. The patient is little more social, but her expressive aphasia makes her appeared more confused than she is. She is redirectable. She has not voiced overt hallucinations, delusions that prompted admission. REVIEW OF SYSTEMS: No CV, , pulmonary, eye system symptoms on review. MENTAL STATUS EXAM: Oriented to herself and situation. Speech has some latency, coherent, marked by expressive aphasia. Abstraction fair, computation impaired, language function intact, attention span short. Mood and affect somewhat anxious, labile at times. LABORATORY DATA: Reviewed. IMPRESSION: Major depressive disorder with psychotic features, in partial remission; cognitive disorder, unspecified; expressive aphasia. PLAN: Continue psychotropics as mentioned in my initial note. MAN Geni RAMÍREZ MD DR: ARIANA/chandana JOB#: [id number] / [id number]
[2017-05-29] MEDS: traZODone 50 MG TABLET. PO PRN (23:30)
--- NOTE | 2017-05-30 01:45 | PN ---
DATE: 05/28/2017 PSYCHIATRIC PROGRESS NOTE This is a late entry for 05/28/2017, covers elements not covered in my initial note of 05/28/2017. SUBJECTIVE: I met with the patient in the evening of 05/28/2017. Overall, the patient has been somewhat anxious, at times appears depressed, helpless, hopeless, wants to go home. Her expressive aphasia seems to make her anxiety and agitation somewhat worse. REVIEW OF SYSTEMS: No CV, , pulmonary, eye, ENT system symptoms on review. Reliability varies. MENTAL STATUS EXAM: Oriented to herself and situation. Speech marked by expressive aphasia. Abstraction fair, computation impaired, language function intact, attention span short. Mood and affect somewhat anxious, labile. LABORATORY DATA: Reviewed. IMPRESSION: Major depressive disorder with psychotic features, expressive aphasia. Rest unchanged from initial note. PLAN: Stop the Cogentin. Continue rest of the psychotropics mentioned in my initial note. MAN Geni RAMÍREZ MD DR: ARIANA/chandana JOB#: [id number] / [id number]
[2017-05-30 06:12] VITALS: BP 138/77
[2017-05-30] MEDS: ACETAMINOPHEN 500 MG TABLET PO SCH ×2 (07:21→19:48)
[2017-05-30] MEDS: MULTIVITAMIN I-VITE TABLET. PO SCH (07:21)
[2017-05-30] MEDS: CETIRIZINE HCL 10 MG TABLET PO SCH (07:21)
[2017-05-30] MEDS: QUEtiapine 25 MG TABLET. PO SCH ×2 (07:24→12:07)
[2017-05-30] MEDS: amLODIPine BESYLATE 5 MG TABLET PO SCH (07:24)
[2017-05-30] MEDS: POLYVINYL ALCOHOL 1.4% OPHTH SOLUTION 15ML BOTTLE. OU SCH ×2 (07:25→19:49)
[2017-05-30] MEDS: SERTRALINE 100 MG TABLET. PO SCH (08:03)
[2017-05-30 16:15] VITALS: BP 111/71
[2017-05-30] MEDS: QUEtiapine 50 MG TABLET. PO SCH (19:48)
[2017-05-30] MEDS: LISINOPRIL 5 MG TABLET. PO SCH (19:48)
[2017-05-30] MEDS: DONEPEZIL HCL 10 MG TABLET PO SCH (19:48)
[2017-05-30] MEDS: MIRTAZAPINE 15 MG TABLET PO SCH (19:48)
[2017-05-30] MEDS: ATORVASTATIN CALCIUM 10 MG TABLET. PO SCH (19:48)
[2017-05-30] MEDS: traZODone 50 MG TABLET. PO PRN (19:49)
--- NOTE | 2017-05-30 20:55 | PDOC ---
Exam Note: Javier Note: Please also refer to the separate dictated note~for this date of service dictated separately.~Patient seen individually. Discussed the patient with Nursing staff reviewed the chart.~Reviewed interim history and current functioning. Reviewed vital signs,~Labs/ Radiology~and current medications noted below. Continue current treatment with the changes noted in the dictated addendum note Assessment: Vital Signs: Vital Signs Date Time Temp Pulse Resp B/P (MAP) Pulse Ox O2 Delivery O2 Flow Rate FiO2 05/30/17 19:48 67 111/71 05/30/17 16:15 97.5 18 96 I&O Intake and Output 05/30/17 07:00 Intake Total 1200 ml Balance 1200 ml Intake Oral 1200 ml Current Medications: Meds: Current Medications Alprazolam (Xanax) 0.25 mg PRN DAILY PRN PO ANXIETY / AGITATION Last administered on 05/21/17 13:44; Start 05/20/17 at 20:15 Benztropine Mesylate (Cogentin) 0.5 mg BID PO Last administered on 05/24/17 09 :30; Start 05/20/17 at 21:00; Stop 05/24/17 at 17:09; Status DC Donepezil HCl (Aricept) 10 mg QHS PO Last administered on 05/30/17 19:48; Start 05/20/17 at 21:00 Mirtazapine (Remeron) 15 mg QHS PO Last administered on 05/30/17 19:48; Start 05/20/17 at 21:00 Quetiapine Fumarate (SEROquel) 50 mg QHS PO Last administered on 05/30/17 19: 48; Start 05/20/17 at 21:00 Sertraline HCl (Zoloft) 75 mg DAILY PO Last administered on 05/29/17 09:12; Start 05/21/17 at 09:00; Stop 05/29/17 at 18:12; Status DC Acetaminophen (Tylenol) 1,000 mg BID PO Last administered on 05/30/17 19:48; Start 05/20/17 at 21:00 Acetaminophen (Tylenol) 650 mg PRN Q6HRS PRN PO PAIN / TEMP; Start 05/20/17 at 20:15 Amlodipine Besylate (Norvasc) 5 mg DAILY PO Last administered on 05/30/17 07: 24; Start 05/21/17 at 09:00 Cyanocobalamin (Vitamin B-12) 1,000 mcg QMONTH IM ; Start 06/19/17 at 09:00 Lisinopril (Prinivil) 5 mg QHS PO Last administered on 05/30/17 19:48; Start 05/20/17 at 21:00 Al Hydroxide/Mg Hydroxide (Mylanta Plus Xs) 15 ml PRN AFTMEAL PRN PO DYSPEPSIA ; Start 05/20/17 at 20:15 Ondansetron HCl (Zofran Odt) 4 mg PRN Q6HRS PRN PO NAUSEA/VOMITING; Start 05/20 at 20:15 Artificial Tears (Artificial Tears) 1 drop BID OU Last administered on 07:25; Start 05/21/17 at 09:00 Multivitamins/ Minerals (I-Robyn) 1 tab DAILY PO Last administered on 05/30/17 07:21; Start 05/21/17 at 09:00 Vitamin D (Vitamin D3) 50,000 unit WEEKLY PO Last administered on 05/27/17 07: 46; Start 05/27/17 at 09:00 Cetirizine HCl (ZyrTEC) 10 mg DAILY PO Last administered on 05/30/17 07:21; Start 05/21/17 at 09:00 Magnesium Hydroxide (Milk Of Magnesia) 2,400 mg PRN QHS PRN PO CONSTIPATION Last administered on 05/28/17 13:35; Start 05/20/17 at 20:30 Non-Formulary Medication (Vit A/Vit C/Vit E/Zinc/Copper (Preservision Areds Softgel)) 1 cap DAILY PO ; Start 05/21/17 at 09:00; Status UNV Atorvastatin Calcium (Lipitor) 10 mg QHS PO Last administered on 05/30/17 19: 48; Start 05/21/17 at 21:00 Trazodone HCl (Desyrel) 50 mg PRN QHS PRN PO INSOMNIA, MAY REPEAT X1 Last administered on 05/30/17 19:49; Start 05/21/17 at 23:15 Olanzapine (ZyPREXA ZYDIS) 1.25 mg PRN Q2HR PRN PO Psych Last administered on 3 /21/18at 15:56; Start 05/21/17 at 23:15 Quetiapine Fumarate (SEROquel) 12.5 mg BID@0900,1300 PO Last administered on at 12:07; Start 05/23/17 at 09:00 Benztropine Mesylate (Cogentin) 0.5 mg DAILY PO Last administered on 05/28/17at 08:56; Start 05/25/17 at 09:00; Stop 05/28/17 at 21:58; Status DC Sertraline HCl (Zoloft) 100 mg DAILY PO Last administered on 05/30/17at 08:03; Start 05/30/17 at 09:00 Active Scripts Active Reported Xanax (Alprazolam) 0.25 Mg Tablet 0.25 Mg PO PRN DAILY PRN Zofran Odt (Ondansetron) 4 Mg Tab.rapdis 4 Mg PO PRN Q6HRS PRN I-Robyn Tablet (Vit A,C & E/Lutein/Minerals) 1 Each Tablet 1 Tab PO DAILY Amlodipine Besylate 5 Mg Tablet 5 Mg PO DAILY Zoloft (Sertraline Hcl) 50 Mg Tablet 75 Mg PO DAILY Seroquel (Quetiapine Fumarate) 50 Mg Tablet 50 Mg PO QHS Mirtazapine 15 Mg Tablet 15 Mg PO QHS Milk Of Magnesia (Magnesium Hydroxide) 2,400 Mg/10 Ml Oral.susp 2,400 Mg PO PRN QHS PRN Mag-Al Plus Xs Suspension (Mag Hydrox/Al Hydrox/Simeth) 30 Ml Oral.susp 15 Ml PO PRN AFTMEAL PRN Cyanocobalamin Injection (Cyanocobalamin (Vitamin B-12)) 1,000 Mcg/1 Ml Vial 1, 000 Mcg IJ QMONTH Vitamin D3 (Cholecalciferol (Vitamin D3)) 5,000 Unit Tablet 50,000 Unit PO WEEKLY Benztropine Mesylate 0.5 Mg Tablet 0.5 Mg PO BID Tylenol (Acetaminophen) 325 Mg Tablet 650 Mg PO PRN Q6HRS PRN Preservision Areds Softgel (Vit A/Vit C/Vit E/Zinc/Copper) 1 Each Capsule 1 Cap PO DAILY Fexofenadine Hcl 180 Mg Tablet 180 Mg PO DAILY Acetaminophen 500 Mg Tablet 1,000 Mg PO BID MDD 4000 Lisinopril 5 Mg Tablet 5 Mg PO QHS Liquitears (Polyvinyl Alcohol) 15 Ml Drops 1 Drop OU BID Donepezil Hcl 10 Mg Tablet 10 Mg PO QHS I have reviewed the current psychotropics carefully including drug interactions. Risk benefit ratio favors no change other than as noted in my dictated progress note. Diagnosis: Problems: (1) Anxiety disorder (2) Dementia, vascular, with delusions (3) Dementia, vascular, with depression (4) Major depressive disorder, recurrent episode (5) Impulse control disorder ALIYAH RAMÍREZ MD May 30, 2017 20:55
--- NOTE | 2017-05-30 22:04 | PN ---
DATE: 05/29/2017 PSYCHIATRIC PROGRESS NOTE This is a late entry 05/29/2017 covers elements not covered in my initial note 05/29/2017. SUBJECTIVE: I met with the patient in the evening of 05/29/2017. Per nursing report, the patient has been tearful at times, wandering, appears somewhat hopeless and depressed. Her expressive aphasia appears to increase her frustration from lack of communication. REVIEW OF SYSTEMS: No CV, , pulmonary, eye system symptoms on review. MENTAL STATUS EXAM: Oriented to herself, situation at times speech as noted is marked with the aphasia. Abstraction fair, computation impaired, language function intact, attention span short. Mood and affect, somewhat depressed. LABORATORY DATA: Reviewed. IMPRESSION: Major depressive disorder with psychotic features. Expressive aphasia. Rest unchanged. PLAN: Increase Zoloft from 75 mg a day to 100 mg a day. Rest unchanged from initial note including Aricept, Remeron, Seroquel, Xanax p.r.n., Zyprexa p.r.n., trazodone p.r.n. ALIYAH RAMÍREZ MD DR: ARIANA/chandana JOB#: [id number] / [id number]
[2017-05-31 06:08] VITALS: BP 113/72
[2017-05-31] MEDS: SERTRALINE 100 MG TABLET. PO SCH (07:39)
[2017-05-31] MEDS: MULTIVITAMIN I-VITE TABLET. PO SCH (07:39)
[2017-05-31] MEDS: ACETAMINOPHEN 500 MG TABLET PO SCH ×2 (07:40→20:15)
[2017-05-31] MEDS: amLODIPine BESYLATE 5 MG TABLET PO SCH (07:40)
[2017-05-31] MEDS: POLYVINYL ALCOHOL 1.4% OPHTH SOLUTION 15ML BOTTLE. OU SCH ×2 (07:40→20:12)
[2017-05-31] MEDS: CETIRIZINE HCL 10 MG TABLET PO SCH (07:40)
[2017-05-31] MEDS: QUEtiapine 25 MG TABLET. PO SCH ×2 (07:40→12:10)
[2017-05-31 16:33] VITALS: BP 117/80
[2017-05-31] MEDS: ATORVASTATIN CALCIUM 10 MG TABLET. PO SCH (20:12)
[2017-05-31] MEDS: LISINOPRIL 5 MG TABLET. PO SCH (20:12)
[2017-05-31] MEDS: DONEPEZIL HCL 10 MG TABLET PO SCH (20:12)
[2017-05-31] MEDS: QUEtiapine 50 MG TABLET. PO SCH (20:13)
[2017-05-31] MEDS: MIRTAZAPINE 15 MG TABLET PO SCH (20:14)
--- NOTE | 2017-05-31 21:07 | PDOC ---
Exam Note: Javier Note: Please also refer to the separate dictated note~for this date of service dictated separately.~Patient seen individually. Discussed the patient with Nursing staff reviewed the chart.~Reviewed interim history and current functioning. Reviewed vital signs,~Labs/ Radiology~and current medications noted below. Continue current treatment with the changes noted in the dictated addendum note Assessment: Vital Signs: Vital Signs Date Time Temp Pulse Resp B/P (MAP) Pulse Ox O2 Delivery O2 Flow Rate FiO2 05/31/17 20:12 61 117/80 05/31/17 16:33 98.9 18 100 I&O Intake and Output 05/31/17 07:00 Intake Total 960 ml Balance 960 ml Intake Oral 960 ml Current Medications: Meds: Current Medications Alprazolam (Xanax) 0.25 mg PRN DAILY PRN PO ANXIETY / AGITATION Last administered on 05/21/17at 13:44; Start 05/20/17 at 20:15 Benztropine Mesylate (Cogentin) 0.5 mg BID PO Last administered on 05/24/17at 09 :30; Start 05/20/17 at 21:00; Stop 05/24/17 at 17:09; Status DC Donepezil HCl (Aricept) 10 mg QHS PO Last administered on 05/31/17 20:12; Start 05/20/17 at 21:00 Mirtazapine (Remeron) 15 mg QHS PO Last administered on 05/31/17at 20:14; Start 05/20/17 at 21:00 Quetiapine Fumarate (SEROquel) 50 mg QHS PO Last administered on 05/31/17at 20: 13; Start 05/20/17 at 21:00 Sertraline HCl (Zoloft) 75 mg DAILY PO Last administered on 05/29/17at 09:12; Start 05/21/17 at 09:00; Stop 05/29/17 at 18:12; Status DC Acetaminophen (Tylenol) 1,000 mg BID PO Last administered on 05/31/17at 20:15; Start 05/20/17 at 21:00 Acetaminophen (Tylenol) 650 mg PRN Q6HRS PRN PO PAIN / TEMP; Start 05/20/17 at 20:15 Amlodipine Besylate (Norvasc) 5 mg DAILY PO Last administered on 05/31/17 07: 40; Start 05/21/17 at 09:00 Cyanocobalamin (Vitamin B-12) 1,000 mcg QMONTH IM ; Start 06/19/17 at 09:00 Lisinopril (Prinivil) 5 mg QHS PO Last administered on 05/31/17 20:12; Start 05/20/17 at 21:00 Al Hydroxide/Mg Hydroxide (Mylanta Plus Xs) 15 ml PRN AFTMEAL PRN PO DYSPEPSIA ; Start 05/20/17 at 20:15 Ondansetron HCl (Zofran Odt) 4 mg PRN Q6HRS PRN PO NAUSEA/VOMITING; Start 05/20 at 20:15 Artificial Tears (Artificial Tears) 1 drop BID OU Last administered on 07:40; Start 05/21/17 at 09:00 Multivitamins/ Minerals (I-Robyn) 1 tab DAILY PO Last administered on 05/31/17 07:39; Start 05/21/17 at 09:00 Vitamin D (Vitamin D3) 50,000 unit WEEKLY PO Last administered on 05/27/17 07: 46; Start 05/27/17 at 09:00 Cetirizine HCl (ZyrTEC) 10 mg DAILY PO Last administered on 05/31/17 07:40; Start 05/21/17 at 09:00 Magnesium Hydroxide (Milk Of Magnesia) 2,400 mg PRN QHS PRN PO CONSTIPATION Last administered on 05/28/17 13:35; Start 05/20/17 at 20:30 Non-Formulary Medication (Vit A/Vit C/Vit E/Zinc/Copper (Preservision Areds Softgel)) 1 cap DAILY PO ; Start 05/21/17 at 09:00; Status UNV Atorvastatin Calcium (Lipitor) 10 mg QHS PO Last administered on 05/31/17 20: 12; Start 05/21/17 at 21:00 Trazodone HCl (Desyrel) 50 mg PRN QHS PRN PO INSOMNIA, MAY REPEAT X1 Last administered on 05/30/17 19:49; Start 05/21/17 at 23:15 Olanzapine (ZyPREXA ZYDIS) 1.25 mg PRN Q2HR PRN PO Psych Last administered on 3 /21/18at 15:56; Start 05/21/17 at 23:15 Quetiapine Fumarate (SEROquel) 12.5 mg BID@0900,1300 PO Last administered on at 12:10; Start 05/23/17 at 09:00 Benztropine Mesylate (Cogentin) 0.5 mg DAILY PO Last administered on 05/28/17at 08:56; Start 05/25/17 at 09:00; Stop 05/28/17 at 21:58; Status DC Sertraline HCl (Zoloft) 100 mg DAILY PO Last administered on 05/31/17at 07:39; Start 05/30/17 at 09:00 Active Scripts Active Reported Xanax (Alprazolam) 0.25 Mg Tablet 0.25 Mg PO PRN DAILY PRN Zofran Odt (Ondansetron) 4 Mg Tab.rapdis 4 Mg PO PRN Q6HRS PRN I-Robyn Tablet (Vit A,C & E/Lutein/Minerals) 1 Each Tablet 1 Tab PO DAILY Amlodipine Besylate 5 Mg Tablet 5 Mg PO DAILY Zoloft (Sertraline Hcl) 50 Mg Tablet 75 Mg PO DAILY Seroquel (Quetiapine Fumarate) 50 Mg Tablet 50 Mg PO QHS Mirtazapine 15 Mg Tablet 15 Mg PO QHS Milk Of Magnesia (Magnesium Hydroxide) 2,400 Mg/10 Ml Oral.susp 2,400 Mg PO PRN QHS PRN Mag-Al Plus Xs Suspension (Mag Hydrox/Al Hydrox/Simeth) 30 Ml Oral.susp 15 Ml PO PRN AFTMEAL PRN Cyanocobalamin Injection (Cyanocobalamin (Vitamin B-12)) 1,000 Mcg/1 Ml Vial 1, 000 Mcg IJ QMONTH Vitamin D3 (Cholecalciferol (Vitamin D3)) 5,000 Unit Tablet 50,000 Unit PO WEEKLY Benztropine Mesylate 0.5 Mg Tablet 0.5 Mg PO BID Tylenol (Acetaminophen) 325 Mg Tablet 650 Mg PO PRN Q6HRS PRN Preservision Areds Softgel (Vit A/Vit C/Vit E/Zinc/Copper) 1 Each Capsule 1 Cap PO DAILY Fexofenadine Hcl 180 Mg Tablet 180 Mg PO DAILY Acetaminophen 500 Mg Tablet 1,000 Mg PO BID MDD 4000 Lisinopril 5 Mg Tablet 5 Mg PO QHS Liquitears (Polyvinyl Alcohol) 15 Ml Drops 1 Drop OU BID Donepezil Hcl 10 Mg Tablet 10 Mg PO QHS I have reviewed the current psychotropics carefully including drug interactions. Risk benefit ratio favors no change other than as noted in my dictated progress note. Diagnosis: Problems: (1) Anxiety disorder (2) Dementia, vascular, with delusions (3) Dementia, vascular, with depression (4) Major depressive disorder, recurrent episode (5) Impulse control disorder ALIYAH RAMÍREZ MD May 31, 2017 21:06
--- NOTE | 2017-05-31 21:48 | PN ---
DATE: 05/30/2017 This is a late entry, 05/30/2017, covers the elements not covered in my initial note, 05/30/2017. SUBJECTIVE: I met with the patient in the evening of 05/30/2017. The patient slept 5-3/4 hours previous evening, not tearful, but gets frustrated with her expressive aphasia wanting to go home rather than back to the assisted living at [facility]. Processed this with her, difficulty expressing herself as I met with her. She did receive trazodone p.r.n. the previous evening to help with sleep. REVIEW OF SYSTEMS: No CV, , pulmonary, eye system symptoms on review. MENTAL STATUS EXAM: Oriented to herself, situation at times. Speech as noted, abstraction fair, computation impaired, language function intact, attention span short. Mood and affect still somewhat anxious, labile. LABORATORY DATA: Reviewed. IMPRESSION: Major depressive disorder with psychotic features, expressive aphasia. Rest unchanged per initial note. PLAN: Continue psychotropics as mentioned in my initial note. Zoloft was increased to 100 mg a day. MAN Geni RAMÍREZ MD DR: ARIANA/chandana JOB#: [id number] / [id number]
[2017-06-01 05:49] VITALS: BP 123/70
[2017-06-01] MEDS: MULTIVITAMIN I-VITE TABLET. PO SCH (08:03)
[2017-06-01] MEDS: SERTRALINE 100 MG TABLET. PO SCH (08:03)
[2017-06-01] MEDS: POLYVINYL ALCOHOL 1.4% OPHTH SOLUTION 15ML BOTTLE. OU SCH ×2 (08:03→19:53)
[2017-06-01] MEDS: amLODIPine BESYLATE 5 MG TABLET PO SCH (08:03)
[2017-06-01] MEDS: CETIRIZINE HCL 10 MG TABLET PO SCH (08:03)
[2017-06-01] MEDS: QUEtiapine 25 MG TABLET. PO SCH ×2 (08:03→12:45)
[2017-06-01] MEDS: ACETAMINOPHEN 500 MG TABLET PO SCH ×2 (08:03→19:53)
[2017-06-01 16:05] VITALS: BP 106/67
[2017-06-01] MEDS: DONEPEZIL HCL 10 MG TABLET PO SCH (19:53)
[2017-06-01] MEDS: QUEtiapine 50 MG TABLET. PO SCH (19:53)
[2017-06-01] MEDS: ATORVASTATIN CALCIUM 10 MG TABLET. PO SCH (19:53)
[2017-06-01] MEDS: LISINOPRIL 5 MG TABLET. PO SCH (19:53)
[2017-06-01] MEDS: MIRTAZAPINE 15 MG TABLET PO SCH (19:53)
--- NOTE | 2017-06-01 20:56 | PDOC ---
Exam Note: Javier Note: Please also refer to the separate dictated note~for this date of service dictated separately.~Patient seen individually. Discussed the patient with Nursing staff reviewed the chart.~Reviewed interim history and current functioning. Reviewed vital signs,~Labs/ Radiology~and current medications noted below. Continue current treatment with the changes noted in the dictated addendum note Assessment: Vital Signs: Vital Signs Date Time Temp Pulse Resp B/P (MAP) Pulse Ox O2 Delivery O2 Flow Rate FiO2 06/01/17 19:53 80 106/67 06/01/17 16:05 97.9 18 97 I&O Intake and Output 06/01/17 07:00 Intake Total 660 ml Balance 660 ml Intake Oral 660 ml # Bowel Movements 2 Current Medications: Meds: Current Medications Alprazolam (Xanax) 0.25 mg PRN DAILY PRN PO ANXIETY / AGITATION Last administered on 05/21/17 13:44; Start 05/20/17 at 20:15 Benztropine Mesylate (Cogentin) 0.5 mg BID PO Last administered on 05/24/17 09 :30; Start 05/20/17 at 21:00; Stop 05/24/17 at 17:09; Status DC Donepezil HCl (Aricept) 10 mg QHS PO Last administered on 06/01/17 19:53; Start 05/20/17 at 21:00 Mirtazapine (Remeron) 15 mg QHS PO Last administered on 06/01/17 19:53; Start 05/20/17 at 21:00 Quetiapine Fumarate (SEROquel) 50 mg QHS PO Last administered on 06/01/17 19: 53; Start 05/20/17 at 21:00 Sertraline HCl (Zoloft) 75 mg DAILY PO Last administered on 05/29/17 09:12; Start 05/21/17 at 09:00; Stop 05/29/17 at 18:12; Status DC Acetaminophen (Tylenol) 1,000 mg BID PO Last administered on 06/01/17 19:53; Start 05/20/17 at 21:00 Acetaminophen (Tylenol) 650 mg PRN Q6HRS PRN PO PAIN / TEMP; Start 05/20/17 at 20:15 Amlodipine Besylate (Norvasc) 5 mg DAILY PO Last administered on 06/01/17 08: 03; Start 05/21/17 at 09:00 Cyanocobalamin (Vitamin B-12) 1,000 mcg QMONTH IM ; Start 06/19/17 at 09:00 Lisinopril (Prinivil) 5 mg QHS PO Last administered on 06/01/17 19:53; Start 05/20/17 at 21:00 Al Hydroxide/Mg Hydroxide (Mylanta Plus Xs) 15 ml PRN AFTMEAL PRN PO DYSPEPSIA ; Start 05/20/17 at 20:15 Ondansetron HCl (Zofran Odt) 4 mg PRN Q6HRS PRN PO NAUSEA/VOMITING; Start 05/20 at 20:15 Artificial Tears (Artificial Tears) 1 drop BID OU Last administered on 19:53; Start 05/21/17 at 09:00 Multivitamins/ Minerals (I-Robyn) 1 tab DAILY PO Last administered on 06/01/17 08:03; Start 05/21/17 at 09:00 Vitamin D (Vitamin D3) 50,000 unit WEEKLY PO Last administered on 05/27/17 07: 46; Start 05/27/17 at 09:00 Cetirizine HCl (ZyrTEC) 10 mg DAILY PO Last administered on 06/01/17 08:03; Start 05/21/17 at 09:00 Magnesium Hydroxide (Milk Of Magnesia) 2,400 mg PRN QHS PRN PO CONSTIPATION Last administered on 05/28/17at 13:35; Start 05/20/17 at 20:30 Non-Formulary Medication (Vit A/Vit C/Vit E/Zinc/Copper (Preservision Areds Softgel)) 1 cap DAILY PO ; Start 05/21/17 at 09:00; Status UNV Atorvastatin Calcium (Lipitor) 10 mg QHS PO Last administered on 06/01/17 19: 53; Start 05/21/17 at 21:00 Trazodone HCl (Desyrel) 50 mg PRN QHS PRN PO INSOMNIA, MAY REPEAT X1 Last administered on 05/30/17at 19:49; Start 05/21/17 at 23:15 Olanzapine (ZyPREXA ZYDIS) 1.25 mg PRN Q2HR PRN PO Psych Last administered on at 15:56; Start 05/21/17 at 23:15 Quetiapine Fumarate (SEROquel) 12.5 mg BID@0900,1300 PO Last administered on at 12:45; Start 05/23/17 at 09:00 Benztropine Mesylate (Cogentin) 0.5 mg DAILY PO Last administered on 05/28/17at 08:56; Start 05/25/17 at 09:00; Stop 05/28/17 at 21:58; Status DC Sertraline HCl (Zoloft) 100 mg DAILY PO Last administered on 06/01/17at 08:03; Start 05/30/17 at 09:00 Active Scripts Active Reported Xanax (Alprazolam) 0.25 Mg Tablet 0.25 Mg PO PRN DAILY PRN Zofran Odt (Ondansetron) 4 Mg Tab.rapdis 4 Mg PO PRN Q6HRS PRN I-Robyn Tablet (Vit A,C & E/Lutein/Minerals) 1 Each Tablet 1 Tab PO DAILY Amlodipine Besylate 5 Mg Tablet 5 Mg PO DAILY Zoloft (Sertraline Hcl) 50 Mg Tablet 75 Mg PO DAILY Seroquel (Quetiapine Fumarate) 50 Mg Tablet 50 Mg PO QHS Mirtazapine 15 Mg Tablet 15 Mg PO QHS Milk Of Magnesia (Magnesium Hydroxide) 2,400 Mg/10 Ml Oral.susp 2,400 Mg PO PRN QHS PRN Mag-Al Plus Xs Suspension (Mag Hydrox/Al Hydrox/Simeth) 30 Ml Oral.susp 15 Ml PO PRN AFTMEAL PRN Cyanocobalamin Injection (Cyanocobalamin (Vitamin B-12)) 1,000 Mcg/1 Ml Vial 1, 000 Mcg IJ QMONTH Vitamin D3 (Cholecalciferol (Vitamin D3)) 5,000 Unit Tablet 50,000 Unit PO WEEKLY Benztropine Mesylate 0.5 Mg Tablet 0.5 Mg PO BID Tylenol (Acetaminophen) 325 Mg Tablet 650 Mg PO PRN Q6HRS PRN Preservision Areds Softgel (Vit A/Vit C/Vit E/Zinc/Copper) 1 Each Capsule 1 Cap PO DAILY Fexofenadine Hcl 180 Mg Tablet 180 Mg PO DAILY Acetaminophen 500 Mg Tablet 1,000 Mg PO BID MDD 4000 Lisinopril 5 Mg Tablet 5 Mg PO QHS Liquitears (Polyvinyl Alcohol) 15 Ml Drops 1 Drop OU BID Donepezil Hcl 10 Mg Tablet 10 Mg PO QHS I have reviewed the current psychotropics carefully including drug interactions. Risk benefit ratio favors no change other than as noted in my dictated progress note. Diagnosis: Problems: (1) Anxiety disorder (2) Dementia, vascular, with delusions (3) Dementia, vascular, with depression (4) Major depressive disorder, recurrent episode (5) Impulse control disorder ALIYAH RAMÍREZ MD Jun 01, 2017 20:56
[2017-06-01] MEDS: traZODone 50 MG TABLET. PO PRN (22:35)
[2017-06-02 06:16] VITALS: BP 118/76
[2017-06-02] MEDS: ACETAMINOPHEN 500 MG TABLET PO SCH ×2 (07:56→19:44)
[2017-06-02] MEDS: CETIRIZINE HCL 10 MG TABLET PO SCH (07:56)
[2017-06-02] MEDS: MULTIVITAMIN I-VITE TABLET. PO SCH (07:56)
[2017-06-02] MEDS: QUEtiapine 25 MG TABLET. PO SCH ×2 (07:56→15:54)
[2017-06-02] MEDS: POLYVINYL ALCOHOL 1.4% OPHTH SOLUTION 15ML BOTTLE. OU SCH ×2 (07:56→19:43)
[2017-06-02] MEDS: amLODIPine BESYLATE 5 MG TABLET PO SCH (07:56)
[2017-06-02] MEDS: SERTRALINE 100 MG TABLET. PO SCH (07:56)
[2017-06-02 16:25] VITALS: BP 111/73
[2017-06-02] MEDS: DONEPEZIL HCL 10 MG TABLET PO SCH (19:43)
[2017-06-02] MEDS: LISINOPRIL 5 MG TABLET. PO SCH (19:44)
[2017-06-02] MEDS: QUEtiapine 50 MG TABLET. PO SCH (19:44)
[2017-06-02] MEDS: ATORVASTATIN CALCIUM 10 MG TABLET. PO SCH (19:44)
[2017-06-02] MEDS: MIRTAZAPINE 15 MG TABLET PO SCH (19:44)
[2017-06-02] MEDS: traZODone 50 MG TABLET. PO PRN (19:45)
--- NOTE | 2017-06-02 21:01 | PDOC ---
Exam Note: Javier Note: Please also refer to the separate dictated note~for this date of service dictated separately.~Patient seen individually. Discussed the patient with Nursing staff reviewed the chart.~Reviewed interim history and current functioning. Reviewed vital signs,~Labs/ Radiology~and current medications noted below. Continue current treatment with the changes noted in the dictated addendum note Assessment: Vital Signs: Vital Signs Date Time Temp Pulse Resp B/P (MAP) Pulse Ox O2 Delivery O2 Flow Rate FiO2 06/02/17 19:44 93 111/73 06/02/17 16:25 98.8 20 98 I&O Intake and Output 06/02/17 07:00 Intake Total 480 ml Balance 480 ml Intake Oral 480 ml # Voids 1 # Bowel Movements 1 Current Medications: Meds: Current Medications Alprazolam (Xanax) 0.25 mg PRN DAILY PRN PO ANXIETY / AGITATION Last administered on 05/21/17 13:44; Start 05/20/17 at 20:15 Benztropine Mesylate (Cogentin) 0.5 mg BID PO Last administered on 05/24/17 09 :30; Start 05/20/17 at 21:00; Stop 05/24/17 at 17:09; Status DC Donepezil HCl (Aricept) 10 mg QHS PO Last administered on 06/02/17 19:43; Start 05/20/17 at 21:00 Mirtazapine (Remeron) 15 mg QHS PO Last administered on 06/02/17 19:44; Start 05/20/17 at 21:00 Quetiapine Fumarate (SEROquel) 50 mg QHS PO Last administered on 06/02/17 19: 44; Start 05/20/17 at 21:00 Sertraline HCl (Zoloft) 75 mg DAILY PO Last administered on 05/29/17 09:12; Start 05/21/17 at 09:00; Stop 05/29/17 at 18:12; Status DC Acetaminophen (Tylenol) 1,000 mg BID PO Last administered on 06/02/17 19:44; Start 05/20/17 at 21:00 Acetaminophen (Tylenol) 650 mg PRN Q6HRS PRN PO PAIN / TEMP; Start 05/20/17 at 20:15 Amlodipine Besylate (Norvasc) 5 mg DAILY PO Last administered on 06/02/17 07: 56; Start 05/21/17 at 09:00 Cyanocobalamin (Vitamin B-12) 1,000 mcg QMONTH IM ; Start 06/19/17 at 09:00 Lisinopril (Prinivil) 5 mg QHS PO Last administered on 06/02/17 19:44; Start 05/20/17 at 21:00 Al Hydroxide/Mg Hydroxide (Mylanta Plus Xs) 15 ml PRN AFTMEAL PRN PO DYSPEPSIA ; Start 05/20/17 at 20:15 Ondansetron HCl (Zofran Odt) 4 mg PRN Q6HRS PRN PO NAUSEA/VOMITING; Start 05/20 at 20:15 Artificial Tears (Artificial Tears) 1 drop BID OU Last administered on 19:43; Start 05/21/17 at 09:00 Multivitamins/ Minerals (I-Robyn) 1 tab DAILY PO Last administered on 06/02/17 07:56; Start 05/21/17 at 09:00 Vitamin D (Vitamin D3) 50,000 unit WEEKLY PO Last administered on 05/27/17 07: 46; Start 05/27/17 at 09:00 Cetirizine HCl (ZyrTEC) 10 mg DAILY PO Last administered on 06/02/17 07:56; Start 05/21/17 at 09:00 Magnesium Hydroxide (Milk Of Magnesia) 2,400 mg PRN QHS PRN PO CONSTIPATION Last administered on 05/28/17 13:35; Start 05/20/17 at 20:30 Non-Formulary Medication (Vit A/Vit C/Vit E/Zinc/Copper (Preservision Areds Softgel)) 1 cap DAILY PO ; Start 05/21/17 at 09:00; Status UNV Atorvastatin Calcium (Lipitor) 10 mg QHS PO Last administered on 06/02/17 19: 44; Start 05/21/17 at 21:00 Trazodone HCl (Desyrel) 50 mg PRN QHS PRN PO INSOMNIA, MAY REPEAT X1 Last administered on 06/02/17 19:45; Start 05/21/17 at 23:15 Olanzapine (ZyPREXA ZYDIS) 1.25 mg PRN Q2HR PRN PO Psych Last administered on at 15:56; Start 05/21/17 at 23:15 Quetiapine Fumarate (SEROquel) 12.5 mg BID@0900,1300 PO Last administered on at 15:54; Start 05/23/17 at 09:00 Benztropine Mesylate (Cogentin) 0.5 mg DAILY PO Last administered on 05/28/17at 08:56; Start 05/25/17 at 09:00; Stop 05/28/17 at 21:58; Status DC Sertraline HCl (Zoloft) 100 mg DAILY PO Last administered on 06/02/17at 07:56; Start 05/30/17 at 09:00 Active Scripts Active Reported Xanax (Alprazolam) 0.25 Mg Tablet 0.25 Mg PO PRN DAILY PRN Zofran Odt (Ondansetron) 4 Mg Tab.rapdis 4 Mg PO PRN Q6HRS PRN I-Robyn Tablet (Vit A,C & E/Lutein/Minerals) 1 Each Tablet 1 Tab PO DAILY Amlodipine Besylate 5 Mg Tablet 5 Mg PO DAILY Zoloft (Sertraline Hcl) 50 Mg Tablet 75 Mg PO DAILY Seroquel (Quetiapine Fumarate) 50 Mg Tablet 50 Mg PO QHS Mirtazapine 15 Mg Tablet 15 Mg PO QHS Milk Of Magnesia (Magnesium Hydroxide) 2,400 Mg/10 Ml Oral.susp 2,400 Mg PO PRN QHS PRN Mag-Al Plus Xs Suspension (Mag Hydrox/Al Hydrox/Simeth) 30 Ml Oral.susp 15 Ml PO PRN AFTMEAL PRN Cyanocobalamin Injection (Cyanocobalamin (Vitamin B-12)) 1,000 Mcg/1 Ml Vial 1, 000 Mcg IJ QMONTH Vitamin D3 (Cholecalciferol (Vitamin D3)) 5,000 Unit Tablet 50,000 Unit PO WEEKLY Benztropine Mesylate 0.5 Mg Tablet 0.5 Mg PO BID Tylenol (Acetaminophen) 325 Mg Tablet 650 Mg PO PRN Q6HRS PRN Preservision Areds Softgel (Vit A/Vit C/Vit E/Zinc/Copper) 1 Each Capsule 1 Cap PO DAILY Fexofenadine Hcl 180 Mg Tablet 180 Mg PO DAILY Acetaminophen 500 Mg Tablet 1,000 Mg PO BID MDD 4000 Lisinopril 5 Mg Tablet 5 Mg PO QHS Liquitears (Polyvinyl Alcohol) 15 Ml Drops 1 Drop OU BID Donepezil Hcl 10 Mg Tablet 10 Mg PO QHS I have reviewed the current psychotropics carefully including drug interactions. Risk benefit ratio favors no change other than as noted in my dictated progress note. Diagnosis: Problems: (1) Anxiety disorder (2) Dementia, vascular, with delusions (3) Dementia, vascular, with depression (4) Major depressive disorder, recurrent episode (5) Impulse control disorder ALIYAH RAMRÍEZ MD Jun 02, 2017 21:01
--- NOTE | 2017-06-03 00:02 | PN ---
DATE: 05/31/2017 This is a late entry for 05/31/2017 and covers the elements not covered in my initial note of 05/31/2017. SUBJECTIVE: I met with the patient in the evening of 05/31/2017. The patient has been less agitated, but her expressive aphasia frustrates her, still remains somewhat dysphoric at times. REVIEW OF SYSTEMS: No CV, , pulmonary, eye, ENT system symptoms on review. MENTAL STATUS EXAM: Oriented to herself, situation at times though difficult to assess given her aphasia. Marked by the aphasia, abstraction fair. Computation difficult to assess. Language function, impaired. Attention span short. Mood and affect showing some improvement. LABORATORY DATA: Reviewed. IMPRESSION: Major depressive disorder with psychotic features, expressive aphasia. PLAN: Continue psychotropics mentioned in my initial note, adjust as indicated. MAN Geni RAMÍREZ MD DR: ARIANA/chandana JOB#: [id number] / [id number]
--- NOTE | 2017-06-03 02:16 | PN ---
DATE: 06/01/2017 This late entry 06/01/2017 covers elements not covered in my initial note 06/01/2017. Met with the patient in the evening of 06/01/2017, staffed in the morning. In the treatment team meeting, her daughter Pepper attended. We reviewed the progress at length. Appetite almost 90%, sleeping average 7 hours, slept 7-1/4 hours previous evening, combative in the morning of 06/01/2017; though for the prior 2-3 days, she was much less impulsive, more compliant, takes her medications in chocolate, wandering, confused. No participation in activities. Valproic acid level is 32. REVIEW OF SYSTEMS: No CV, , pulmonary, eye, ENT system symptoms on review. Gait unsteady somewhat, sitting herself on the floor at times. MENTAL STATUS EXAM: Oriented to herself. Insight, judgment, recent and remote memory, attention, concentration, fund of knowledge poor, consistent with her diagnosis mentioned in my initial note. PLAN: Increase BuSpar from 15 mg at 900, 1300 and 10 mg at 1700, to 15 mg 3 times a day. Add also plan to increase the Depakote to 375 mg twice a day. Check labs level in 3 days, but after reassessing it in the evening of 06/01/2017, decided not to make this increase given her unsteady gait. We will just see how she does with increased BuSpar. Given the level of dementia and confusion, the fact that we are reaching adequate or higher level of adequate dosages of psychotropics, which made now start affecting her gait. I feel there may not be very much more we can do. Discussed with the nursing staff and we may transition her to the senior living early next week to be coordinated by social service staff. Daughter orquidea, is aware of all of this, and supportive. We discussed all this at the treatment team meeting. MAN Geni RAMÍREZ MD DR: ARIANA/chandana JOB#: [id number] / [id number]
--- NOTE | 2017-06-03 02:30 | PN ---
DATE: 06/01/2017 PSYCHIATRIC PROGRESS NOTE This is a late entry date of service of 06/01/2017 covers elements not covered in my initial note of 06/01/2017. SUBJECTIVE: The patient was seen individually in the evening staffed at a treatment team meeting with the entire team in the morning, sleeping average 6-3/4 hours, slept 7-1/2 hours previous evening, calm, compliant, but her aphasia worsens of frustration. No active hallucinations noted. No CV, , pulmonary, eye system symptoms on review. She is aphasic, difficulty expressing herself as I sat with her. MENTAL STATUS EXAMINATION: Oriented to herself and situation. Speech is notable for the aphasia, abstraction fair, computation impaired, language function intact. Attention span short. No active hallucinations noted. LABORATORY DATA: Reviewed. IMPRESSION: Major depressive disorder with psychotic features, in partial remission and expressive aphasia. PLAN: Continue psychotropics mentioned in my initial note. ALIYAH RAMÍREZ MD DR: ARIANA/chandana JOB#: [id number] / [id number]
[2017-06-03 05:59] VITALS: BP 113/77
[2017-06-03 07:13] LABS: BASO # 0.1 x10^3/uL (0.0-0.2); BASO % 1 % (0-3); EOS # 0.2 x10^3/uL (0.0-0.7); EOS % 2 % (0-3); HEMATOCRIT 37.9 % (36.0-47.0); HEMOGLOBIN 12.7 g/dL (12.0-15.5); LYMPH # 1.3 x10^3/uL (1.0-4.8); LYMPH % 15 % (24-48); MEAN CORPUSCULAR HEMOGLOBIN 31 pg (25-35); MEAN CORPUSCULAR HGB CONC 34 g/dL (31-37); MEAN CORPUSCULAR VOLUME 93 fL (79-100); MONO # 0.6 x10^3/uL (0.0-1.1); MONO % 7 % (0-9); NEUT # 6.4 x10^3uL (1.8-7.7); NEUT % 75 % (31-73); PLATELET COUNT 294 x10^3/uL (140-400); RED BLOOD COUNT 4.06 x10^6/uL (3.50-5.40); RED CELL DISTRIBUTION WIDTH 12.1 % (11.5-14.5); WHITE BLOOD COUNT 8.5 x10^3/uL (4.0-11.0)
[2017-06-03 07:23] LABS: ALBUMIN 3.9 g/dL (3.4-5.0); ALBUMIN/GLOBULIN RATIO 1.1 (1.0-1.7); CALCIUM 9.4 mg/dL (8.5-10.1); CREATININE 1.3 mg/dL (0.6-1.0); GFR 39.6; POTASSIUM 4.4 mmol/L (3.5-5.1); TOTAL BILIRUBIN 0.4 mg/dL (0.2-1.0); TOTAL PROTEIN 7.3 g/dL (6.4-8.2)
[2017-06-03] MEDS: CETIRIZINE HCL 10 MG TABLET PO SCH (08:09)
[2017-06-03] MEDS: POLYVINYL ALCOHOL 1.4% OPHTH SOLUTION 15ML BOTTLE. OU SCH ×2 (08:09→19:30)
[2017-06-03] MEDS: MULTIVITAMIN I-VITE TABLET. PO SCH (08:09)
[2017-06-03] MEDS: QUEtiapine 25 MG TABLET. PO SCH ×2 (08:10→12:33)
[2017-06-03] MEDS: ACETAMINOPHEN 500 MG TABLET PO SCH ×2 (08:10→19:31)
[2017-06-03] MEDS: SERTRALINE 100 MG TABLET. PO SCH (08:10)
[2017-06-03] MEDS: amLODIPine BESYLATE 5 MG TABLET PO SCH (08:10)
[2017-06-03] MEDS: CHOLECALCIFEROL (VITAMIN D3) 50,000 UNIT CAPSULE PO SCH (08:11)
[2017-06-03 15:50] VITALS: BP 101/64
[2017-06-03] MEDS: ATORVASTATIN CALCIUM 10 MG TABLET. PO SCH (19:30)
[2017-06-03] MEDS: LISINOPRIL 5 MG TABLET. PO SCH (19:30)
[2017-06-03] MEDS: MIRTAZAPINE 15 MG TABLET PO SCH (19:31)
[2017-06-03] MEDS: traZODone 50 MG TABLET. PO PRN (19:31)
[2017-06-03] MEDS: DONEPEZIL HCL 10 MG TABLET PO SCH (19:31)
[2017-06-03] MEDS: QUEtiapine 50 MG TABLET. PO SCH (19:31)
--- NOTE | 2017-06-03 22:53 | PDOC ---
Exam Note: Javier Note: Please also refer to the separate dictated note~for this date of service dictated separately.~Patient seen individually. Discussed the patient with Nursing staff reviewed the chart.~Reviewed interim history and current functioning. Reviewed vital signs,~Labs/ Radiology~and current medications noted below. Continue current treatment with the changes noted in the dictated addendum note Assessment: Vital Signs: Vital Signs Date Time Temp Pulse Resp B/P (MAP) Pulse Ox O2 Delivery O2 Flow Rate FiO2 06/03/17 19:30 81 101/64 06/03/17 15:50 97.7 16 96 I&O Intake and Output 06/03/17 07:00 Intake Total 960 ml Balance 960 ml Intake Oral 960 ml Labs: Laboratory Tests Test 06/03/17 06:50 White Blood Count 8.5 x10^3/uL (4.0-11.0) Red Blood Count 4.06 x10^6/uL (3.50-5.40) Hemoglobin 12.7 g/dL (12.0-15.5) Hematocrit 37.9 % (36.0-47.0) Mean Corpuscular Volume 93 fL (79-100) Mean Corpuscular Hemoglobin 31 pg (25-35) Mean Corpuscular Hemoglobin Concent 34 g/dL (31-37) Red Cell Distribution Width 12.1 % (11.5-14.5) Platelet Count 294 x10^3/uL (140-400) Neutrophils (%) (Auto) 75 % (31-73) H Lymphocytes (%) (Auto) 15 % (24-48) L Monocytes (%) (Auto) 7 % (0-9) Eosinophils (%) (Auto) 2 % (0-3) Basophils (%) (Auto) 1 % (0-3) Neutrophils # (Auto) 6.4 x10^3uL (1.8-7.7) Lymphocytes # (Auto) 1.3 x10^3/uL (1.0-4.8) Monocytes # (Auto) 0.6 x10^3/uL (0.0-1.1) Eosinophils # (Auto) 0.2 x10^3/uL (0.0-0.7) Basophils # (Auto) 0.1 x10^3/uL (0.0-0.2) Sodium Level 143 mmol/L (136-145) Potassium Level 4.4 mmol/L (3.5-5.1) Chloride Level 106 mmol/L (98-107) Carbon Dioxide Level 27 mmol/L (21-32) Anion Gap 10 (6-14) Blood Urea Nitrogen 34 mg/dL (7-20) H Creatinine 1.3 mg/dL (0.6-1.0) H Estimated GFR (Cockcroft-Gault) 39.6 BUN/Creatinine Ratio 26 (6-20) H Glucose Level 92 mg/dL (70-99) Calcium Level 9.4 mg/dL (8.5-10.1) Total Bilirubin 0.4 mg/dL (0.2-1.0) Aspartate Amino Transferase (AST) 10 U/L (15-37) L Alanine Aminotransferase (ALT) 17 U/L (14-59) Alkaline Phosphatase 75 U/L (46-116) Total Protein 7.3 g/dL (6.4-8.2) Albumin 3.9 g/dL (3.4-5.0) Albumin/Globulin Ratio 1.1 (1.0-1.7) Current Medications: Meds: Current Medications Alprazolam (Xanax) 0.25 mg PRN DAILY PRN PO ANXIETY / AGITATION Last administered on 05/21/17 13:44; Start 05/20/17 at 20:15 Benztropine Mesylate (Cogentin) 0.5 mg BID PO Last administered on 05/24/17 09 :30; Start 05/20/17 at 21:00; Stop 05/24/17 at 17:09; Status DC Donepezil HCl (Aricept) 10 mg QHS PO Last administered on 06/03/17 19:31; Start 05/20/17 at 21:00 Mirtazapine (Remeron) 15 mg QHS PO Last administered on 06/03/17 19:31; Start 05/20/17 at 21:00 Quetiapine Fumarate (SEROquel) 50 mg QHS PO Last administered on 06/03/17 19: 31; Start 05/20/17 at 21:00 Sertraline HCl (Zoloft) 75 mg DAILY PO Last administered on 05/29/17 09:12; Start 05/21/17 at 09:00; Stop 05/29/17 at 18:12; Status DC Acetaminophen (Tylenol) 1,000 mg BID PO Last administered on 06/03/17 19:31; Start 05/20/17 at 21:00 Acetaminophen (Tylenol) 650 mg PRN Q6HRS PRN PO PAIN / TEMP; Start 05/20/17 at 20:15 Amlodipine Besylate (Norvasc) 5 mg DAILY PO Last administered on 06/03/17 08: 10; Start 05/21/17 at 09:00 Cyanocobalamin (Vitamin B-12) 1,000 mcg QMONTH IM ; Start 06/19/17 at 09:00 Lisinopril (Prinivil) 5 mg QHS PO Last administered on 06/03/17 19:30; Start 05/20/17 at 21:00 Al Hydroxide/Mg Hydroxide (Mylanta Plus Xs) 15 ml PRN AFTMEAL PRN PO DYSPEPSIA ; Start 05/20/17 at 20:15 Ondansetron HCl (Zofran Odt) 4 mg PRN Q6HRS PRN PO NAUSEA/VOMITING; Start 05/20 at 20:15 Artificial Tears (Artificial Tears) 1 drop BID OU Last administered on 19:30; Start 05/21/17 at 09:00 Multivitamins/ Minerals (I-Robyn) 1 tab DAILY PO Last administered on 06/03/17 08:09; Start 05/21/17 at 09:00 Vitamin D (Vitamin D3) 50,000 unit WEEKLY PO Last administered on 06/03/17 08: 11; Start 05/27/17 at 09:00 Cetirizine HCl (ZyrTEC) 10 mg DAILY PO Last administered on 06/03/17 08:09; Start 05/21/17 at 09:00 Magnesium Hydroxide (Milk Of Magnesia) 2,400 mg PRN QHS PRN PO CONSTIPATION Last administered on 05/28/17 13:35; Start 05/20/17 at 20:30 Non-Formulary Medication (Vit A/Vit C/Vit E/Zinc/Copper (Preservision Areds Softgel)) 1 cap DAILY PO ; Start 05/21/17 at 09:00; Status UNV Atorvastatin Calcium (Lipitor) 10 mg QHS PO Last administered on 06/03/17at 19: 30; Start 05/21/17 at 21:00 Trazodone HCl (Desyrel) 50 mg PRN QHS PRN PO INSOMNIA, MAY REPEAT X1 Last administered on 06/03/17at 19:31; Start 05/21/17 at 23:15 Olanzapine (ZyPREXA ZYDIS) 1.25 mg PRN Q2HR PRN PO Psych Last administered on at 15:56; Start 05/21/17 at 23:15 Quetiapine Fumarate (SEROquel) 12.5 mg BID@0900,1300 PO Last administered on at 12:33; Start 05/23/17 at 09:00 Benztropine Mesylate (Cogentin) 0.5 mg DAILY PO Last administered on 05/28/17at 08:56; Start 05/25/17 at 09:00; Stop 05/28/17 at 21:58; Status DC Sertraline HCl (Zoloft) 100 mg DAILY PO Last administered on 06/03/17at 08:10; Start 05/30/17 at 09:00; Stop 06/03/17 at 18:45; Status DC Sertraline HCl (Zoloft) 125 mg DAILY PO ; Start 06/04/17 at 09:00 Active Scripts Active Reported Xanax (Alprazolam) 0.25 Mg Tablet 0.25 Mg PO PRN DAILY PRN Zofran Odt (Ondansetron) 4 Mg Tab.rapdis 4 Mg PO PRN Q6HRS PRN I-Robyn Tablet (Vit A,C & E/Lutein/Minerals) 1 Each Tablet 1 Tab PO DAILY Amlodipine Besylate 5 Mg Tablet 5 Mg PO DAILY Zoloft (Sertraline Hcl) 50 Mg Tablet 75 Mg PO DAILY Seroquel (Quetiapine Fumarate) 50 Mg Tablet 50 Mg PO QHS Mirtazapine 15 Mg Tablet 15 Mg PO QHS Milk Of Magnesia (Magnesium Hydroxide) 2,400 Mg/10 Ml Oral.susp 2,400 Mg PO PRN QHS PRN Mag-Al Plus Xs Suspension (Mag Hydrox/Al Hydrox/Simeth) 30 Ml Oral.susp 15 Ml PO PRN AFTMEAL PRN Cyanocobalamin Injection (Cyanocobalamin (Vitamin B-12)) 1,000 Mcg/1 Ml Vial 1, 000 Mcg IJ QMONTH Vitamin D3 (Cholecalciferol (Vitamin D3)) 5,000 Unit Tablet 50,000 Unit PO WEEKLY Benztropine Mesylate 0.5 Mg Tablet 0.5 Mg PO BID Tylenol (Acetaminophen) 325 Mg Tablet 650 Mg PO PRN Q6HRS PRN Preservision Areds Softgel (Vit A/Vit C/Vit E/Zinc/Copper) 1 Each Capsule 1 Cap PO DAILY Fexofenadine Hcl 180 Mg Tablet 180 Mg PO DAILY Acetaminophen 500 Mg Tablet 1,000 Mg PO BID MDD 4000 Lisinopril 5 Mg Tablet 5 Mg PO QHS Liquitears (Polyvinyl Alcohol) 15 Ml Drops 1 Drop OU BID Donepezil Hcl 10 Mg Tablet 10 Mg PO QHS I have reviewed the current psychotropics carefully including drug interactions. Risk benefit ratio favors no change other than as noted in my dictated progress note. Diagnosis: Problems: (1) Anxiety disorder (2) Dementia, vascular, with delusions (3) Dementia, vascular, with depression (4) Major depressive disorder, recurrent episode (5) Impulse control disorder ALIYAH RAMÍREZ MD Jun 03, 2017 22:53
[2017-06-04 06:01] VITALS: BP 109/72
[2017-06-04] MEDS: CETIRIZINE HCL 10 MG TABLET PO SCH (08:03)
[2017-06-04] MEDS: MULTIVITAMIN I-VITE TABLET. PO SCH (08:04)
[2017-06-04] MEDS: QUEtiapine 25 MG TABLET. PO SCH ×2 (08:04→13:30)
[2017-06-04] MEDS: ACETAMINOPHEN 500 MG TABLET PO SCH ×2 (08:04→19:44)
[2017-06-04] MEDS: amLODIPine BESYLATE 5 MG TABLET PO SCH (08:04)
[2017-06-04] MEDS: SERTRALINE 50 MG TABLET. PO SCH (08:08)
[2017-06-04] MEDS: POLYVINYL ALCOHOL 1.4% OPHTH SOLUTION 15ML BOTTLE. OU SCH ×2 (08:53→19:44)
[2017-06-04 15:30] VITALS: BP 102/69
--- NOTE | 2017-06-04 18:17 | PN ---
DATE: 06/02/2017 PSYCHIATRIC PROGRESS NOTE This late entry 06/02/2017 covers elements, not covered in my initial note of 06/02/2017. I met with the patient evening of 06/02/2017. The patient had a good day on 06/02/2017, received trazodone at 11:00 p.m. Slept a little better, compliant with medications. We will be checking CBC and CMP in the morning. REVIEW OF SYSTEMS: No CV, , pulmonary, eye system symptoms on review. Reliability somewhat poor. She has expressive aphasia. MENTAL STATUS EXAM: Oriented to herself and situation. Speech as above consequent to aphasia, abstraction fair, computation impaired, language function intact, attention span short. Mood and affect somewhat anxious, labile, withdrawn at times. LABORATORY DATA: Reviewed. IMPRESSION: Major depressive disorder with psychotic features, expressive aphasia. Rest unchanged. PLAN: Continue psychotropics mentioned in my initial note. Adjust further as clinically indicated. ALIYAH RAMÍREZ MD DR: ARIANA/chandana JOB#: [id number] / [id number]
[2017-06-04] MEDS: DONEPEZIL HCL 10 MG TABLET PO SCH (19:44)
[2017-06-04] MEDS: MIRTAZAPINE 15 MG TABLET PO SCH (19:44)
[2017-06-04] MEDS: QUEtiapine 50 MG TABLET. PO SCH (19:44)
[2017-06-04] MEDS: ATORVASTATIN CALCIUM 10 MG TABLET. PO SCH (19:44)
[2017-06-04] MEDS: LISINOPRIL 5 MG TABLET. PO SCH (19:46)
--- NOTE | 2017-06-04 22:02 | PDOC ---
Exam Note: Javier Note: Please also refer to the separate dictated note~for this date of service dictated separately.~Patient seen individually. Discussed the patient with Nursing staff reviewed the chart.~Reviewed interim history and current functioning. Reviewed vital signs,~Labs/ Radiology~and current medications noted below. Continue current treatment with the changes noted in the dictated addendum note Assessment: Vital Signs: Vital Signs Date Time Temp Pulse Resp B/P (MAP) Pulse Ox O2 Delivery O2 Flow Rate FiO2 06/04/17 19:46 90 102/69 06/04/17 15:30 97.9 20 94 I&O Intake and Output 06/04/17 07:00 Intake Total 840 ml Balance 840 ml Intake Oral 840 ml Current Medications: Meds: Current Medications Alprazolam (Xanax) 0.25 mg PRN DAILY PRN PO ANXIETY / AGITATION Last administered on 05/21/17 13:44; Start 05/20/17 at 20:15 Benztropine Mesylate (Cogentin) 0.5 mg BID PO Last administered on 05/24/17at 09 :30; Start 05/20/17 at 21:00; Stop 05/24/17 at 17:09; Status DC Donepezil HCl (Aricept) 10 mg QHS PO Last administered on 06/04/17 19:44; Start 05/20/17 at 21:00 Mirtazapine (Remeron) 15 mg QHS PO Last administered on 06/04/17at 19:44; Start 05/20/17 at 21:00 Quetiapine Fumarate (SEROquel) 50 mg QHS PO Last administered on 06/04/17 19:44 ; Start 05/20/17 at 21:00 Sertraline HCl (Zoloft) 75 mg DAILY PO Last administered on 05/29/17 09:12; Start 05/21/17 at 09:00; Stop 05/29/17 at 18:12; Status DC Acetaminophen (Tylenol) 1,000 mg BID PO Last administered on 06/04/17 19:44; Start 05/20/17 at 21:00 Acetaminophen (Tylenol) 650 mg PRN Q6HRS PRN PO PAIN / TEMP; Start 05/20/17 at 20:15 Amlodipine Besylate (Norvasc) 5 mg DAILY PO Last administered on 06/04/17 08:04 ; Start 05/21/17 at 09:00 Cyanocobalamin (Vitamin B-12) 1,000 mcg QMONTH IM ; Start 06/19/17 at 09:00 Lisinopril (Prinivil) 5 mg QHS PO Last administered on 06/04/17 19:46; Start at 21:00 Al Hydroxide/Mg Hydroxide (Mylanta Plus Xs) 15 ml PRN AFTMEAL PRN PO DYSPEPSIA ; Start 05/20/17 at 20:15 Ondansetron HCl (Zofran Odt) 4 mg PRN Q6HRS PRN PO NAUSEA/VOMITING; Start 05/20 at 20:15 Artificial Tears (Artificial Tears) 1 drop BID OU Last administered on 19:44; Start 05/21/17 at 09:00 Multivitamins/ Minerals (I-Robyn) 1 tab DAILY PO Last administered on 06/04/17 08:04; Start 05/21/17 at 09:00 Vitamin D (Vitamin D3) 50,000 unit WEEKLY PO Last administered on 06/03/17 08: 11; Start 05/27/17 at 09:00 Cetirizine HCl (ZyrTEC) 10 mg DAILY PO Last administered on 06/04/17 08:03; Start 05/21/17 at 09:00 Magnesium Hydroxide (Milk Of Magnesia) 2,400 mg PRN QHS PRN PO CONSTIPATION Last administered on 05/28/17 13:35; Start 05/20/17 at 20:30 Non-Formulary Medication (Vit A/Vit C/Vit E/Zinc/Copper (Preservision Areds Softgel)) 1 cap DAILY PO ; Start 05/21/17 at 09:00; Status UNV Atorvastatin Calcium (Lipitor) 10 mg QHS PO Last administered on 06/04/17 19:44 ; Start 05/21/17 at 21:00 Trazodone HCl (Desyrel) 50 mg PRN QHS PRN PO INSOMNIA, MAY REPEAT X1 Last administered on 06/03/17 19:31; Start 05/21/17 at 23:15 Olanzapine (ZyPREXA ZYDIS) 1.25 mg PRN Q2HR PRN PO Psych Last administered on 3 /21/18at 15:56; Start 05/21/17 at 23:15 Quetiapine Fumarate (SEROquel) 12.5 mg BID@0900,1300 PO Last administered on 06/04/17at 13:30; Start 05/23/17 at 09:00 Benztropine Mesylate (Cogentin) 0.5 mg DAILY PO Last administered on 05/28/17at 08:56; Start 05/25/17 at 09:00; Stop 05/28/17 at 21:58; Status DC Sertraline HCl (Zoloft) 100 mg DAILY PO Last administered on 06/03/17at 08:10; Start 05/30/17 at 09:00; Stop 06/03/17 at 18:45; Status DC Sertraline HCl (Zoloft) 125 mg DAILY PO Last administered on 06/04/17at 08:08; Start 06/04/17 at 09:00 Active Scripts Active Reported Xanax (Alprazolam) 0.25 Mg Tablet 0.25 Mg PO PRN DAILY PRN Zofran Odt (Ondansetron) 4 Mg Tab.rapdis 4 Mg PO PRN Q6HRS PRN I-Robyn Tablet (Vit A,C & E/Lutein/Minerals) 1 Each Tablet 1 Tab PO DAILY Amlodipine Besylate 5 Mg Tablet 5 Mg PO DAILY Zoloft (Sertraline Hcl) 50 Mg Tablet 75 Mg PO DAILY Seroquel (Quetiapine Fumarate) 50 Mg Tablet 50 Mg PO QHS Mirtazapine 15 Mg Tablet 15 Mg PO QHS Milk Of Magnesia (Magnesium Hydroxide) 2,400 Mg/10 Ml Oral.susp 2,400 Mg PO PRN QHS PRN Mag-Al Plus Xs Suspension (Mag Hydrox/Al Hydrox/Simeth) 30 Ml Oral.susp 15 Ml PO PRN AFTMEAL PRN Cyanocobalamin Injection (Cyanocobalamin (Vitamin B-12)) 1,000 Mcg/1 Ml Vial 1, 000 Mcg IJ QMONTH Vitamin D3 (Cholecalciferol (Vitamin D3)) 5,000 Unit Tablet 50,000 Unit PO WEEKLY Benztropine Mesylate 0.5 Mg Tablet 0.5 Mg PO BID Tylenol (Acetaminophen) 325 Mg Tablet 650 Mg PO PRN Q6HRS PRN Preservision Areds Softgel (Vit A/Vit C/Vit E/Zinc/Copper) 1 Each Capsule 1 Cap PO DAILY Fexofenadine Hcl 180 Mg Tablet 180 Mg PO DAILY Acetaminophen 500 Mg Tablet 1,000 Mg PO BID MDD 4000 Lisinopril 5 Mg Tablet 5 Mg PO QHS Liquitears (Polyvinyl Alcohol) 15 Ml Drops 1 Drop OU BID Donepezil Hcl 10 Mg Tablet 10 Mg PO QHS I have reviewed the current psychotropics carefully including drug interactions. Risk benefit ratio favors no change other than as noted in my dictated progress note. Diagnosis: Problems: (1) Anxiety disorder (2) Dementia, vascular, with delusions (3) Dementia, vascular, with depression (4) Major depressive disorder, recurrent episode (5) Impulse control disorder ALIYAH RAMÍREZ MD Jun 04, 2017 22:02
[2017-06-05 06:24] VITALS: BP 134/72
[2017-06-05] MEDS: ACETAMINOPHEN 500 MG TABLET PO SCH ×2 (08:47→19:44)
[2017-06-05] MEDS: CETIRIZINE HCL 10 MG TABLET PO SCH (08:48)
[2017-06-05] MEDS: amLODIPine BESYLATE 5 MG TABLET PO SCH (08:48)
[2017-06-05] MEDS: MULTIVITAMIN I-VITE TABLET. PO SCH (08:48)
[2017-06-05] MEDS: QUEtiapine 25 MG TABLET. PO SCH ×2 (08:48→13:09)
[2017-06-05] MEDS: SERTRALINE 50 MG TABLET. PO SCH (08:48)
[2017-06-05] MEDS: POLYVINYL ALCOHOL 1.4% OPHTH SOLUTION 15ML BOTTLE. OU SCH ×2 (08:52→19:44)
[2017-06-05 15:57] VITALS: BP 123/79
[2017-06-05] MEDS: QUEtiapine 50 MG TABLET. PO SCH (19:43)
[2017-06-05] MEDS: LISINOPRIL 5 MG TABLET. PO SCH (19:43)
[2017-06-05] MEDS: ATORVASTATIN CALCIUM 10 MG TABLET. PO SCH (19:43)
[2017-06-05] MEDS: DONEPEZIL HCL 10 MG TABLET PO SCH (19:44)
[2017-06-05] MEDS: MIRTAZAPINE 15 MG TABLET PO SCH (19:44)
--- NOTE | 2017-06-05 21:02 | PDOC ---
Exam Note: Javier Note: Please also refer to the separate dictated note~for this date of service dictated separately.~Patient seen individually. Discussed the patient with Nursing staff reviewed the chart.~Reviewed interim history and current functioning. Reviewed vital signs,~Labs/ Radiology~and current medications noted below. Continue current treatment with the changes noted in the dictated addendum note Assessment: Vital Signs: Vital Signs Date Time Temp Pulse Resp B/P (MAP) Pulse Ox O2 Delivery O2 Flow Rate FiO2 06/05/17 19:43 65 123/79 06/05/17 15:57 98.1 16 99 Room Air I&O Intake and Output 06/05/17 07:00 Intake Total 840 ml Balance 840 ml Intake Oral 840 ml # Voids 1 Current Medications: Meds: Current Medications Alprazolam (Xanax) 0.25 mg PRN DAILY PRN PO ANXIETY / AGITATION Last administered on 05/21/17 13:44; Start 05/20/17 at 20:15 Benztropine Mesylate (Cogentin) 0.5 mg BID PO Last administered on 05/24/17at 09 :30; Start 05/20/17 at 21:00; Stop 05/24/17 at 17:09; Status DC Donepezil HCl (Aricept) 10 mg QHS PO Last administered on 06/05/17 19:44; Start 05/20/17 at 21:00 Mirtazapine (Remeron) 15 mg QHS PO Last administered on 06/05/17 19:44; Start 05/20/17 at 21:00 Quetiapine Fumarate (SEROquel) 50 mg QHS PO Last administered on 06/05/17 19:43 ; Start 05/20/17 at 21:00 Sertraline HCl (Zoloft) 75 mg DAILY PO Last administered on 05/29/17 09:12; Start 05/21/17 at 09:00; Stop 05/29/17 at 18:12; Status DC Acetaminophen (Tylenol) 1,000 mg BID PO Last administered on 06/05/17 19:44; Start 05/20/17 at 21:00 Acetaminophen (Tylenol) 650 mg PRN Q6HRS PRN PO PAIN / TEMP; Start 05/20/17 at 20:15 Amlodipine Besylate (Norvasc) 5 mg DAILY PO Last administered on 06/05/17 08:48 ; Start 05/21/17 at 09:00 Cyanocobalamin (Vitamin B-12) 1,000 mcg QMONTH IM ; Start 06/19/17 at 09:00 Lisinopril (Prinivil) 5 mg QHS PO Last administered on 06/05/17 19:43; Start at 21:00 Al Hydroxide/Mg Hydroxide (Mylanta Plus Xs) 15 ml PRN AFTMEAL PRN PO DYSPEPSIA ; Start 05/20/17 at 20:15 Ondansetron HCl (Zofran Odt) 4 mg PRN Q6HRS PRN PO NAUSEA/VOMITING; Start 05/20 at 20:15 Artificial Tears (Artificial Tears) 1 drop BID OU Last administered on 19:44; Start 05/21/17 at 09:00 Multivitamins/ Minerals (I-Robyn) 1 tab DAILY PO Last administered on 06/05/17 08:48; Start 05/21/17 at 09:00 Vitamin D (Vitamin D3) 50,000 unit WEEKLY PO Last administered on 06/03/17 08: 11; Start 05/27/17 at 09:00 Cetirizine HCl (ZyrTEC) 10 mg DAILY PO Last administered on 06/05/17 08:48; Start 05/21/17 at 09:00 Magnesium Hydroxide (Milk Of Magnesia) 2,400 mg PRN QHS PRN PO CONSTIPATION Last administered on 05/28/17 13:35; Start 05/20/17 at 20:30 Non-Formulary Medication (Vit A/Vit C/Vit E/Zinc/Copper (Preservision Areds Softgel)) 1 cap DAILY PO ; Start 05/21/17 at 09:00; Status UNV Atorvastatin Calcium (Lipitor) 10 mg QHS PO Last administered on 06/05/17 19:43 ; Start 05/21/17 at 21:00 Trazodone HCl (Desyrel) 50 mg PRN QHS PRN PO INSOMNIA, MAY REPEAT X1 Last administered on 06/03/17 19:31; Start 05/21/17 at 23:15 Olanzapine (ZyPREXA ZYDIS) 1.25 mg PRN Q2HR PRN PO Psych Last administered on at 15:56; Start 05/21/17 at 23:15 Quetiapine Fumarate (SEROquel) 12.5 mg BID@0900,1300 PO Last administered on 06/05/17at 13:09; Start 05/23/17 at 09:00 Benztropine Mesylate (Cogentin) 0.5 mg DAILY PO Last administered on 05/28/17at 08:56; Start 05/25/17 at 09:00; Stop 05/28/17 at 21:58; Status DC Sertraline HCl (Zoloft) 100 mg DAILY PO Last administered on 06/03/17at 08:10; Start 05/30/17 at 09:00; Stop 06/03/17 at 18:45; Status DC Sertraline HCl (Zoloft) 125 mg DAILY PO Last administered on 06/05/17at 08:48; Start 06/04/17 at 09:00 Active Scripts Active Reported Xanax (Alprazolam) 0.25 Mg Tablet 0.25 Mg PO PRN DAILY PRN Zofran Odt (Ondansetron) 4 Mg Tab.rapdis 4 Mg PO PRN Q6HRS PRN I-Robyn Tablet (Vit A,C & E/Lutein/Minerals) 1 Each Tablet 1 Tab PO DAILY Amlodipine Besylate 5 Mg Tablet 5 Mg PO DAILY Zoloft (Sertraline Hcl) 50 Mg Tablet 75 Mg PO DAILY Seroquel (Quetiapine Fumarate) 50 Mg Tablet 50 Mg PO QHS Mirtazapine 15 Mg Tablet 15 Mg PO QHS Milk Of Magnesia (Magnesium Hydroxide) 2,400 Mg/10 Ml Oral.susp 2,400 Mg PO PRN QHS PRN Mag-Al Plus Xs Suspension (Mag Hydrox/Al Hydrox/Simeth) 30 Ml Oral.susp 15 Ml PO PRN AFTMEAL PRN Cyanocobalamin Injection (Cyanocobalamin (Vitamin B-12)) 1,000 Mcg/1 Ml Vial 1, 000 Mcg IJ QMONTH Vitamin D3 (Cholecalciferol (Vitamin D3)) 5,000 Unit Tablet 50,000 Unit PO WEEKLY Benztropine Mesylate 0.5 Mg Tablet 0.5 Mg PO BID Tylenol (Acetaminophen) 325 Mg Tablet 650 Mg PO PRN Q6HRS PRN Preservision Areds Softgel (Vit A/Vit C/Vit E/Zinc/Copper) 1 Each Capsule 1 Cap PO DAILY Fexofenadine Hcl 180 Mg Tablet 180 Mg PO DAILY Acetaminophen 500 Mg Tablet 1,000 Mg PO BID MDD 4000 Lisinopril 5 Mg Tablet 5 Mg PO QHS Liquitears (Polyvinyl Alcohol) 15 Ml Drops 1 Drop OU BID Donepezil Hcl 10 Mg Tablet 10 Mg PO QHS I have reviewed the current psychotropics carefully including drug interactions. Risk benefit ratio favors no change other than as noted in my dictated progress note. Diagnosis: Problems: (1) Anxiety disorder (2) Dementia, vascular, with delusions (3) Dementia, vascular, with depression (4) Major depressive disorder, recurrent episode (5) Impulse control disorder ALIYAH RAMÍREZ MD Jun 05, 2017 21:02
--- NOTE | 2017-06-06 02:48 | PN ---
DATE: 06/03/2017 This late entry 06/03/2017 covers elements not covered in my initial note 06/03/2017. Met with the patient in the evening of 06/03/2017. The patient slept 5-3/4 hours previous evening. No hallucinations noted, had a better day, compliant with medications. She was up until late at night. We will add trazodone, which we will increase to 125 mg at bedtime, may repeat x 1 for insomnia. REVIEW OF SYSTEMS: Positive for expressive aphasia. No CV, , pulmonary, eye, ENT system symptoms on review. MENTAL STATUS EXAM: Oriented to herself and situation. Speech as noted, abstraction fair, computation impaired, language function intact, attention span short. Mood and affect remain somewhat withdrawn. LABORATORY DATA: Reviewed. IMPRESSION: Major depressive disorder with psychotic features, expressive aphasia, cognitive disorder, unspecified. PLAN: Increase the trazodone as noted. Continue rest unchanged per initial note. ALIYAH RAMÍREZ MD DR: ARIANA/chandana JOB#: [id number] / [id number]
--- NOTE | 2017-06-06 03:30 | PN ---
DATE: 06/04/2017 This is a late entry for 06/04/2017 covers elements not covered in my initial note of 06/04/2017. SUBJECTIVE: I met with the patient in the evening of 06/04/2017. She has had a better day, remains somewhat withdrawn, gets frustrated with her expressive aphasia, not hallucinating. REVIEW OF SYSTEMS: No CV, , pulmonary, eye system symptoms on review. Remarkable for expressive aphasia. MENTAL STATUS EXAM: Oriented to herself and situation. Speech is as noted above. Abstraction fair, computation impaired, language function intact, attention span short. Mood and affect less labile. LABORATORY DATA: Reviewed. IMPRESSION: Major depressive disorder with psychotic features; cognitive disorder, unspecified. Rest unchanged from initial note. PLAN: Continue psychotropics mentioned in my initial note. MAN Geni RAMÍREZ MD DR: ARIANA/chandana JOB#: [id number] / [id number]
[2017-06-06 06:06] VITALS: BP 133/67
[2017-06-06] MEDS: POLYVINYL ALCOHOL 1.4% OPHTH SOLUTION 15ML BOTTLE. OU SCH ×2 (09:00→21:00)
[2017-06-06] MEDS: CETIRIZINE HCL 10 MG TABLET PO SCH (09:01)
[2017-06-06] MEDS: ACETAMINOPHEN 500 MG TABLET PO SCH ×2 (09:01→20:12)
[2017-06-06] MEDS: QUEtiapine 25 MG TABLET. PO SCH ×2 (09:01→13:19)
[2017-06-06] MEDS: amLODIPine BESYLATE 5 MG TABLET PO SCH (09:01)
[2017-06-06] MEDS: SERTRALINE 50 MG TABLET. PO SCH (09:01)
[2017-06-06] MEDS: MULTIVITAMIN I-VITE TABLET. PO SCH (09:01)
[2017-06-06 15:41] VITALS: BP 108/72
[2017-06-06] MEDS: QUEtiapine 50 MG TABLET. PO SCH (20:11)
[2017-06-06] MEDS: ATORVASTATIN CALCIUM 10 MG TABLET. PO SCH (20:11)
[2017-06-06] MEDS: DONEPEZIL HCL 10 MG TABLET PO SCH (20:11)
[2017-06-06] MEDS: MIRTAZAPINE 15 MG TABLET PO SCH (20:12)
[2017-06-06] MEDS: LISINOPRIL 5 MG TABLET. PO SCH (20:18)
--- NOTE | 2017-06-06 21:00 | PDOC ---
Exam Note: Javier Note: Please also refer to the separate dictated note~for this date of service dictated separately.~Patient seen individually. Discussed the patient with Nursing staff reviewed the chart.~Reviewed interim history and current functioning. Reviewed vital signs,~Labs/ Radiology~and current medications noted below. Continue current treatment with the changes noted in the dictated addendum note Assessment: Vital Signs: Vital Signs Date Time Temp Pulse Resp B/P (MAP) Pulse Ox O2 Delivery O2 Flow Rate FiO2 06/06/17 20:18 73 136/83 06/06/17 15:41 98.6 15 95 06/05/17 15:57 Room Air I&O Intake and Output 06/06/17 07:00 Intake Total 600 ml Balance 600 ml Intake Oral 600 ml # Voids 1 # Bowel Movements 1 Current Medications: Meds: Current Medications Alprazolam (Xanax) 0.25 mg PRN DAILY PRN PO ANXIETY / AGITATION Last administered on 05/21/17 13:44; Start 05/20/17 at 20:15 Benztropine Mesylate (Cogentin) 0.5 mg BID PO Last administered on 05/24/17at 09 :30; Start 05/20/17 at 21:00; Stop 05/24/17 at 17:09; Status DC Donepezil HCl (Aricept) 10 mg QHS PO Last administered on 06/06/17 20:11; Start 05/20/17 at 21:00 Mirtazapine (Remeron) 15 mg QHS PO Last administered on 06/06/17 20:12; Start 05/20/17 at 21:00 Quetiapine Fumarate (SEROquel) 50 mg QHS PO Last administered on 06/06/17 20:11 ; Start 05/20/17 at 21:00 Sertraline HCl (Zoloft) 75 mg DAILY PO Last administered on 05/29/17 09:12; Start 05/21/17 at 09:00; Stop 05/29/17 at 18:12; Status DC Acetaminophen (Tylenol) 1,000 mg BID PO Last administered on 06/06/17 20:12; Start 05/20/17 at 21:00 Acetaminophen (Tylenol) 650 mg PRN Q6HRS PRN PO PAIN / TEMP; Start 05/20/17 at 20:15 Amlodipine Besylate (Norvasc) 5 mg DAILY PO Last administered on 06/06/17 09:01 ; Start 05/21/17 at 09:00 Cyanocobalamin (Vitamin B-12) 1,000 mcg QMONTH IM ; Start 06/19/17 at 09:00 Lisinopril (Prinivil) 5 mg QHS PO Last administered on 06/06/17 20:18; Start at 21:00 Al Hydroxide/Mg Hydroxide (Mylanta Plus Xs) 15 ml PRN AFTMEAL PRN PO DYSPEPSIA ; Start 05/20/17 at 20:15 Ondansetron HCl (Zofran Odt) 4 mg PRN Q6HRS PRN PO NAUSEA/VOMITING; Start 05/20 at 20:15 Artificial Tears (Artificial Tears) 1 drop BID OU Last administered on 09:00; Start 05/21/17 at 09:00 Multivitamins/ Minerals (I-Robyn) 1 tab DAILY PO Last administered on 06/06/17 09:01; Start 05/21/17 at 09:00 Vitamin D (Vitamin D3) 50,000 unit WEEKLY PO Last administered on 06/03/17 08: 11; Start 05/27/17 at 09:00 Cetirizine HCl (ZyrTEC) 10 mg DAILY PO Last administered on 06/06/17 09:01; Start 05/21/17 at 09:00 Magnesium Hydroxide (Milk Of Magnesia) 2,400 mg PRN QHS PRN PO CONSTIPATION Last administered on 05/28/17 13:35; Start 05/20/17 at 20:30 Non-Formulary Medication (Vit A/Vit C/Vit E/Zinc/Copper (Preservision Areds Softgel)) 1 cap DAILY PO ; Start 05/21/17 at 09:00; Status UNV Atorvastatin Calcium (Lipitor) 10 mg QHS PO Last administered on 06/06/17 20:11 ; Start 05/21/17 at 21:00 Trazodone HCl (Desyrel) 50 mg PRN QHS PRN PO INSOMNIA, MAY REPEAT X1 Last administered on 06/03/17 19:31; Start 05/21/17 at 23:15 Olanzapine (ZyPREXA ZYDIS) 1.25 mg PRN Q2HR PRN PO Psych Last administered on at 15:56; Start 05/21/17 at 23:15 Quetiapine Fumarate (SEROquel) 12.5 mg BID@0900,1300 PO Last administered on 06/06/17at 13:19; Start 05/23/17 at 09:00 Benztropine Mesylate (Cogentin) 0.5 mg DAILY PO Last administered on 05/28/17at 08:56; Start 05/25/17 at 09:00; Stop 05/28/17 at 21:58; Status DC Sertraline HCl (Zoloft) 100 mg DAILY PO Last administered on 06/03/17at 08:10; Start 05/30/17 at 09:00; Stop 06/03/17 at 18:45; Status DC Sertraline HCl (Zoloft) 125 mg DAILY PO Last administered on 06/06/17at 09:01; Start 06/04/17 at 09:00 Active Scripts Active Reported Xanax (Alprazolam) 0.25 Mg Tablet 0.25 Mg PO PRN DAILY PRN Zofran Odt (Ondansetron) 4 Mg Tab.rapdis 4 Mg PO PRN Q6HRS PRN I-Robyn Tablet (Vit A,C & E/Lutein/Minerals) 1 Each Tablet 1 Tab PO DAILY Amlodipine Besylate 5 Mg Tablet 5 Mg PO DAILY Zoloft (Sertraline Hcl) 50 Mg Tablet 75 Mg PO DAILY Seroquel (Quetiapine Fumarate) 50 Mg Tablet 50 Mg PO QHS Mirtazapine 15 Mg Tablet 15 Mg PO QHS Milk Of Magnesia (Magnesium Hydroxide) 2,400 Mg/10 Ml Oral.susp 2,400 Mg PO PRN QHS PRN Mag-Al Plus Xs Suspension (Mag Hydrox/Al Hydrox/Simeth) 30 Ml Oral.susp 15 Ml PO PRN AFTMEAL PRN Cyanocobalamin Injection (Cyanocobalamin (Vitamin B-12)) 1,000 Mcg/1 Ml Vial 1, 000 Mcg IJ QMONTH Vitamin D3 (Cholecalciferol (Vitamin D3)) 5,000 Unit Tablet 50,000 Unit PO WEEKLY Benztropine Mesylate 0.5 Mg Tablet 0.5 Mg PO BID Tylenol (Acetaminophen) 325 Mg Tablet 650 Mg PO PRN Q6HRS PRN Preservision Areds Softgel (Vit A/Vit C/Vit E/Zinc/Copper) 1 Each Capsule 1 Cap PO DAILY Fexofenadine Hcl 180 Mg Tablet 180 Mg PO DAILY Acetaminophen 500 Mg Tablet 1,000 Mg PO BID MDD 4000 Lisinopril 5 Mg Tablet 5 Mg PO QHS Liquitears (Polyvinyl Alcohol) 15 Ml Drops 1 Drop OU BID Donepezil Hcl 10 Mg Tablet 10 Mg PO QHS I have reviewed the current psychotropics carefully including drug interactions. Risk benefit ratio favors no change other than as noted in my dictated progress note. Diagnosis: Problems: (1) Anxiety disorder (2) Dementia, vascular, with delusions (3) Dementia, vascular, with depression (4) Major depressive disorder, recurrent episode (5) Impulse control disorder ALIYAH RAMÍREZ MD Jun 06, 2017 21:00
--- NOTE | 2017-06-06 22:17 | PN ---
DATE: 06/05/2017 This is a late entry, 06/05/2017, covers the elements not covered in the initial note, 06/05/2017. SUBJECTIVE: I met with the patient in the evening of 06/05/2017. The patient is doing reasonably well. Continues to have expressive aphasia, but less frustrated and slept 5-3/4 hours the previous evening. REVIEW OF SYSTEMS: No CV, , pulmonary, eye system symptoms on review. MENTAL STATUS EXAM: Oriented to herself and situation. Speech is noted due to aphasia, abstraction fair, computation impaired, and language function intact. Mood and affect is improved. LABORATORY DATA: Reviewed. IMPRESSION: Major depressive disorder with psychotic features in partial remission. Rest unchanged. PLAN: Continue psychotropics as mentioned in my initial note. MAN Geni RAMÍREZ MD DR: ARIANA/chandana JOB#: [id number] / [id number]
[2017-06-07] MEDS ORDERED: ATOR10TA60 PO (03:25)
[2017-06-07] MEDS ORDERED: OLAN2.5T3 PO (03:29)
[2017-06-07] MEDS ORDERED: QUET25TA5 PO (03:31)
[2017-06-07] MEDS ORDERED: TRAZ50TA15 PO (03:33)
[2017-06-07] MEDS ORDERED: CHOL500050 PO (03:35)
[2017-06-07 06:06] VITALS: BP 155/86
[2017-06-07] MEDS: MULTIVITAMIN I-VITE TABLET. PO SCH (08:57)
[2017-06-07] MEDS: SERTRALINE 50 MG TABLET. PO SCH (08:57)
[2017-06-07 08:58] VITALS: BP 155/86
[2017-06-07] MEDS: ACETAMINOPHEN 500 MG TABLET PO SCH (08:58)
[2017-06-07] MEDS: QUEtiapine 25 MG TABLET. PO SCH ×2 (08:58→13:38)
[2017-06-07] MEDS: CETIRIZINE HCL 10 MG TABLET PO SCH (08:58)
[2017-06-07] MEDS: amLODIPine BESYLATE 5 MG TABLET PO SCH (08:58)
[2017-06-07] MEDS: POLYVINYL ALCOHOL 1.4% OPHTH SOLUTION 15ML BOTTLE. OU SCH (08:58)
[2017-06-07] MEDS: ALPRAZolam 0.25 MG TABLET PO PRN (10:43)
--- NOTE | 2017-06-07 18:33 | PDOC ---
Exam Note: Javier Note: Please also refer to the separate dictated note~for this date of service dictated separately.~Patient seen individually. Discussed the patient with Nursing staff reviewed the chart.~Reviewed interim history and current functioning. Reviewed vital signs,~Labs/ Radiology~and current medications noted below. Continue current treatment with the changes noted in the dictated addendum note Assessment: Vital Signs: Vital Signs Date Time Temp Pulse Resp B/P (MAP) Pulse Ox O2 Delivery O2 Flow Rate FiO2 06/07/17 08:58 52 155/86 06/07/17 06:06 97.4 20 96 06/05/17 15:57 Room Air I&O Intake and Output 06/07/17 07:00 Intake Total 240 ml Balance 240 ml Intake Oral 240 ml # Bowel Movements 1 Current Medications: Meds: Current Medications Alprazolam (Xanax) 0.25 mg PRN DAILY PRN PO ANXIETY / AGITATION Last administered on 06/07/17at 10:43; Start 05/20/17 at 20:15; Stop 06/07/17 at 15:04; Status DC Benztropine Mesylate (Cogentin) 0.5 mg BID PO Last administered on 05/24/17at 09 :30; Start 05/20/17 at 21:00; Stop 05/24/17 at 17:09; Status DC Donepezil HCl (Aricept) 10 mg QHS PO Last administered on 06/06/17at 20:11; Start 05/20/17 at 21:00; Stop 06/07/17 at 15:04; Status DC Mirtazapine (Remeron) 15 mg QHS PO Last administered on 06/06/17at 20:12; Start 05/20/17 at 21:00; Stop 06/07/17 at 15:04; Status DC Quetiapine Fumarate (SEROquel) 50 mg QHS PO Last administered on 06/06/17 20:11 ; Start 05/20/17 at 21:00; Stop 06/07/17 at 15:04; Status DC Sertraline HCl (Zoloft) 75 mg DAILY PO Last administered on 05/29/17at 09:12; Start 05/21/17 at 09:00; Stop 05/29/17 at 18:12; Status DC Acetaminophen (Tylenol) 1,000 mg BID PO Last administered on 06/07/17 08:58; Start 05/20/17 at 21:00; Stop 06/07/17 at 15:04; Status DC Acetaminophen (Tylenol) 650 mg PRN Q6HRS PRN PO PAIN / TEMP; Start 05/20/17 at 20:15; Stop 06/07/17 at 15:04; Status DC Amlodipine Besylate (Norvasc) 5 mg DAILY PO Last administered on 06/07/17 08:58 ; Start 05/21/17 at 09:00; Stop 06/07/17 at 15:04; Status DC Cyanocobalamin (Vitamin B-12) 1,000 mcg QMONTH IM ; Start 06/19/17 at 09:00; Stop 06/19/17 at 09:00; Status DC Lisinopril (Prinivil) 5 mg QHS PO Last administered on 06/06/17 20:18; Start at 21:00; Stop 06/07/17 at 15:04; Status DC Al Hydroxide/Mg Hydroxide (Mylanta Plus Xs) 15 ml PRN AFTMEAL PRN PO DYSPEPSIA ; Start 05/20/17 at 20:15; Stop 06/07/17 at 15:04; Status DC Ondansetron HCl (Zofran Odt) 4 mg PRN Q6HRS PRN PO NAUSEA/VOMITING; Start 05/20 at 20:15; Stop 06/07/17 at 15:04; Status DC Artificial Tears (Artificial Tears) 1 drop BID OU Last administered on 08:58; Start 05/21/17 at 09:00; Stop 06/07/17 at 15:04; Status DC Multivitamins/ Minerals (I-Robyn) 1 tab DAILY PO Last administered on 06/07/17 08:57; Start 05/21/17 at 09:00; Stop 06/07/17 at 15:04; Status DC Vitamin D (Vitamin D3) 50,000 unit WEEKLY PO Last administered on 06/03/17at 08: 11; Start 05/27/17 at 09:00; Stop 06/07/17 at 15:04; Status DC Cetirizine HCl (ZyrTEC) 10 mg DAILY PO Last administered on 4/4/18at 08:58; Start 05/21/17 at 09:00; Stop 06/07/17 at 15:04; Status DC Magnesium Hydroxide (Milk Of Magnesia) 2,400 mg PRN QHS PRN PO CONSTIPATION Last administered on 05/28/17at 13:35; Start 05/20/17 at 20:30; Stop 06/07/17 at 15:04; Status DC Non-Formulary Medication (Vit A/Vit C/Vit E/Zinc/Copper (Preservision Areds Softgel)) 1 cap DAILY PO ; Start 05/21/17 at 09:00; Status UNV Atorvastatin Calcium (Lipitor) 10 mg QHS PO Last administered on 06/06/17at 20:11 ; Start 05/21/17 at 21:00; Stop 06/07/17 at 15:04; Status DC Trazodone HCl (Desyrel) 50 mg PRN QHS PRN PO INSOMNIA, MAY REPEAT X1 Last administered on 06/03/17at 19:31; Start 05/21/17 at 23:15; Stop 06/07/17 at 15:04 ; Status DC Olanzapine (ZyPREXA ZYDIS) 1.25 mg PRN Q2HR PRN PO Psych Last administered on at 15:56; Start 05/21/17 at 23:15; Stop 06/07/17 at 15:04; Status DC Quetiapine Fumarate (SEROquel) 12.5 mg BID@0900,1300 PO Last administered on 06/07/17at 13:38; Start 05/23/17 at 09:00; Stop 06/07/17 at 15:04; Status DC Benztropine Mesylate (Cogentin) 0.5 mg DAILY PO Last administered on 05/28/17at 08:56; Start 05/25/17 at 09:00; Stop 05/28/17 at 21:58; Status DC Sertraline HCl (Zoloft) 100 mg DAILY PO Last administered on 06/03/17at 08:10; Start 05/30/17 at 09:00; Stop 06/03/17 at 18:45; Status DC Sertraline HCl (Zoloft) 125 mg DAILY PO Last administered on 06/07/17at 08:57; Start 06/04/17 at 09:00; Stop 06/07/17 at 15:04; Status DC Active Scripts Active Reported Vitamin D3 (Cholecalciferol (Vitamin D3)) 50,000 Unit Capsule 50,000 Unit PO WEEKLY Trazodone Hcl 50 Mg Tablet 50 Mg PO PRN QHS PRN Seroquel (Quetiapine Fumarate) 25 Mg Tablet 12.5 Mg PO BID@0900,1300 Zyprexa (Olanzapine) 2.5 Mg Tablet 1.25 Mg PO PRN Q2HR PRN Atorvastatin Calcium 10 Mg Tablet 10 Mg PO QHS Xanax (Alprazolam) 0.25 Mg Tablet 0.25 Mg PO PRN DAILY PRN Zofran Odt (Ondansetron) 4 Mg Tab.rapdis 4 Mg PO PRN Q6HRS PRN I-Robyn Tablet (Vit A,C & E/Lutein/Minerals) 1 Each Tablet 1 Tab PO DAILY Amlodipine Besylate 5 Mg Tablet 5 Mg PO DAILY Zoloft (Sertraline Hcl) 50 Mg Tablet 125 Mg PO DAILY Seroquel (Quetiapine Fumarate) 50 Mg Tablet 50 Mg PO QHS Mirtazapine 15 Mg Tablet 15 Mg PO QHS Milk Of Magnesia (Magnesium Hydroxide) 2,400 Mg/10 Ml Oral.susp 2,400 Mg PO PRN QHS PRN Mag-Al Plus Xs Suspension (Mag Hydrox/Al Hydrox/Simeth) 30 Ml Oral.susp 15 Ml PO PRN AFTMEAL PRN Cyanocobalamin Injection (Cyanocobalamin (Vitamin B-12)) 1,000 Mcg/1 Ml Vial 1, 000 Mcg IJ QMONTH Tylenol (Acetaminophen) 325 Mg Tablet 650 Mg PO PRN Q6HRS PRN Fexofenadine Hcl 180 Mg Tablet 180 Mg PO DAILY Acetaminophen 500 Mg Tablet 1,000 Mg PO BID MDD 4000 Lisinopril 5 Mg Tablet 5 Mg PO QHS Liquitears (Polyvinyl Alcohol) 15 Ml Drops 1 Drop OU BID Donepezil Hcl 10 Mg Tablet 10 Mg PO QHS I have reviewed the current psychotropics carefully including drug interactions. Risk benefit ratio favors no change other than as noted in my dictated progress note. Diagnosis: Problems: (1) Impulse control disorder (2) Major depressive disorder, recurrent episode (3) Dementia, vascular, with depression (4) Dementia, vascular, with delusions (5) Anxiety disorder ALIYAH RAMÍREZ MD Jun 07, 2017 18:33
--- NOTE | 2017-06-07 21:13 | PN ---
DATE: 06/06/2017 This is a late entry, 06/06/2017, covers the elements not covered in my initial note, 06/06/2017. SUBJECTIVE: I met with the patient evening of 06/06/2017. The patient continues to appear confused, but is more oriented than it appears on the surface consequent to her expressive aphasia. She is redirectable. No overt hallucinations noted. REVIEW OF SYSTEMS: No CV, , pulmonary, eye, ENT system symptoms on review. MENTAL STATUS EXAM: Oriented to herself and situation. Speech marked by the aphasia abstraction fair, computation impaired, language function intact, attention span short. Mood and affect are less anxious. No hallucinations noted. LABORATORY DATA: Reviewed. IMPRESSION: Major depressive disorder with psychotic features. Rest unchanged. PLAN: Continue current psychotropics. Possible transition to skilled nursing on 06/07/2017. MAN Geni RAMÍREZ MD DR: ARIANA/chandana JOB#: [id number] / [id number]
--- NOTE | 2017-06-09 12:51 | DS ---
DATE OF DISCHARGE: 06/07/2017 This is a late entry for 06/07/2017 and covers elements not covered in my initial note of 06/07/2017. REASON FOR ADMISSION: Please refer to the admission history for details. Briefly, the patient is a 76-year-old female, referred to us from [facility] in [place], [place] by her primary care physician on account of new onset of visual hallucinations. She was seeing kids in her room. She reportedly fell, "was feeling the presence of a man in her room." Reportedly, she went to the bank next door and asked to go down in the room below to see save the children. She was quite paranoid, delusional, psychotic, behavior deemed dangerous at the relatively insecure assisted living and the patient's tendency to walk out as well, which complicated matters in addition to her psychotic symptoms. She is referred back for inpatient psychiatric stabilization. SIGNIFICANT FINDINGS AND CLINICAL COURSE: Following admission, the patient was seen daily individually by myself from a psychiatric standpoint, medical followup per Dr. Bobby/Dr. Peterson/Dr. Krishnamurthy. She has significant expressive aphasia, which complicated assessment of her cognition, but otherwise reasonably cognitively intact. She was depressed, psychotic. Adjustments were made in her psychotropics and she seemed to respond to a combination of Aricept 10 mg a day, Remeron 15 mg at bedtime, Seroquel 12.5 mg twice a day and 50 mg at bedtime, Zoloft 125 mg a day, Xanax p.r.n., Zyprexa p.r.n., trazodone p.r.n. for insomnia. Gradually, mood appeared to improve. She was much less psychotic. Psychotic symptoms had resolved prior to discharge and she was much less anxious as well prior. REVIEW OF SYSTEMS: Prior to discharge on 06/07/2017, no CV, , pulmonary, eye, ENT system symptoms on review. Reliability varies. MENTAL STATUS EXAM: Oriented to herself and situation. Speech is difficult to understand due to expressive aphasia. Abstraction fair, computation impaired, language function intact, attention span short. Mood and affect was improved. No suicidal or homicidal ideation prior to discharge. FINAL DIAGNOSES: Major depressive disorder with psychotic features, in partial remission; anxiety disorder, unspecified; expressive aphasia Rest unchanged from admission. DISCHARGE MEDICATIONS: Please refer to the [employer]MR[employer]. DISCHARGE INSTRUCTIONS: Outpatient psychiatric and medical followup at the assisted living. MAN Geni RAMÍREZ MD DR: ARIANA/chandana JOB#: [id number] / [id number]
[2017-06-19] MEDS ORDERED: CYANOCOBALAMIN (VITAMIN B-12) 1,000 MCG/ML VIAL IM SCH (09:00)
== END 2017-06-07 14:45 | disposition home or self-care (01) | DRG 885 ==
LOC: ER 15:58 → GEROPSY 19:55
PROVIDERS: ADMIT Psychiatry & Neurology Psychiatry; ATTEND Psychiatry & Neurology Psychiatry
DX: F33.3 Major depressive disorder, recurrent, severe with psychotic symptoms (principal); G30.9 Alzheimer's disease, unspecified; F02.81 Dementia in other diseases classified elsewhere, unspecified severity, with behavioral disturbance; F01.51 Vascular dementia, unspecified severity, with behavioral disturbance; R47.01 Aphasia; M19.90 Unspecified osteoarthritis, unspecified site; E78.5 Hyperlipidemia, unspecified; F41.9 Anxiety disorder, unspecified; F63.9 Impulse disorder, unspecified; G47.00 Insomnia, unspecified; N18.9 Chronic kidney disease, unspecified; I12.9 Hypertensive chronic kidney disease with stage 1 through stage 4 chronic kidney disease, or unspecified chronic kidney disease; Z66 Do not resuscitate; Z88.2 Allergy status to sulfonamides; Z88.8 Allergy status to other drugs, medicaments and biological substances; Z79.899 Other long term (current) drug therapy
CPT/HCPCS: 36415; 80053; 80061; 81001; 82306; 82607; 83036; 83540; 83550; 83735; 84436; 84443; 84480; 85025; 86593; 93005; 99285-25